=== PATIENT | female | born 1995 | race Caucasian/White ===

== ENCOUNTER → 2019-09-01 14:14 | Outpatient (BNVA) | payer MEDICAID, SELFPAY | PROVIDERS: PCP Obstetrics & Gynecology; Visit Provider Obstetrics & Gynecology | DX: Z34.90 Encounter for supervision of normal pregnancy, unspecified, unspecified trimester (principal) | CPT/HCPCS: 81003 ==

== ENCOUNTER → 2019-09-25 09:23 | Outpatient (BNVA) | payer MEDICAID, SELFPAY | PROVIDERS: PCP Obstetrics & Gynecology; Visit Provider Nurse Practitioner Women's Health | DX: Z01.89 Encounter for other specified special examinations (principal) | CPT/HCPCS: 81000; 84315 ==

== ENCOUNTER → 2019-10-15 08:06 | Outpatient (BNVA) | payer MEDICAID, SELFPAY | PROVIDERS: PCP Obstetrics & Gynecology; Visit Provider Obstetrics & Gynecology | DX: Z34.02 Encounter for supervision of normal first pregnancy, second trimester (principal) | CPT/HCPCS: 76816 ==

== ENCOUNTER → 2019-10-19 09:44 | Outpatient (BNVA) | payer MEDICAID, SELFPAY | PROVIDERS: PCP Obstetrics & Gynecology; Visit Provider Obstetrics & Gynecology | DX: Z34.02 Encounter for supervision of normal first pregnancy, second trimester (principal) | CPT/HCPCS: 82950; 84315; 85027 ==

== ENCOUNTER → 2019-10-28 08:02 | Outpatient (BNVA) | payer MEDICAID, SELFPAY | PROVIDERS: PCP Obstetrics & Gynecology; Referring Provider Obstetrics & Gynecology; Visit Provider Obstetrics & Gynecology | DX: R73.09 Other abnormal glucose (principal) | CPT/HCPCS: 82951; 82952 ==

== ENCOUNTER → 2019-11-04 13:01 | Outpatient (BNVA) | payer MEDICAID, SELFPAY | PROVIDERS: PCP Obstetrics & Gynecology; Visit Provider Obstetrics & Gynecology | DX: O24.419 Gestational diabetes mellitus in pregnancy, unspecified control (principal) | CPT/HCPCS: 81003 ==

== ENCOUNTER → 2019-11-09 09:38 | Outpatient (BNVA) | payer MEDICAID, SELFPAY | PROVIDERS: PCP Obstetrics & Gynecology; Visit Provider Obstetrics & Gynecology | DX: O99.333 Smoking (tobacco) complicating pregnancy, third trimester (principal); O99.312 Alcohol use complicating pregnancy, second trimester; O24.410 Gestational diabetes mellitus in pregnancy, diet controlled | CPT/HCPCS: 81000 ==

== ENCOUNTER → 2019-11-17 08:03 | Outpatient (BNVA) | payer MEDICAID, SELFPAY | PROVIDERS: PCP Obstetrics & Gynecology; Visit Provider Obstetrics & Gynecology | DX: O24.419 Gestational diabetes mellitus in pregnancy, unspecified control (principal); Z3A.32 32 weeks gestation of pregnancy | CPT/HCPCS: 76816; 76819; 81000 ==

== ENCOUNTER → 2019-11-23 09:30 | Outpatient (BNVA) | payer MEDICAID, SELFPAY | PROVIDERS: PCP Obstetrics & Gynecology; Visit Provider Obstetrics & Gynecology | DX: O24.419 Gestational diabetes mellitus in pregnancy, unspecified control (principal) | CPT/HCPCS: 76818; 80307; 84315 ==

== ENCOUNTER → 2019-12-09 08:59 | Outpatient (BNVA) | payer MEDICAID, SELFPAY | PROVIDERS: PCP Obstetrics & Gynecology; Visit Provider Obstetrics & Gynecology | DX: O24.410 Gestational diabetes mellitus in pregnancy, diet controlled (principal) | CPT/HCPCS: 76816; 76819; 81000 ==

== ENCOUNTER → 2019-12-14 10:18 | Outpatient (BNVA) | payer MEDICAID, SELFPAY | PROVIDERS: PCP Obstetrics & Gynecology; Visit Provider Obstetrics & Gynecology | DX: Z34.90 Encounter for supervision of normal pregnancy, unspecified, unspecified trimester (principal) | CPT/HCPCS: 76815; 76819; 81000; 87081 ==

== ENCOUNTER 2019-12-20 22:00 | Inpatient (IN) | payer MEDICAID, SELFPAY ==
[2019-12-20] VITALS (10 sets, daily range): BP systolic 0–158; BP diastolic 0–91; PULSE 97–112; TEMP 36.7; BMI 32.8
[2019-12-20] MEDS: ampicillin 2,000 MG in sodium chloride 0.9% (plus) 50 ML 100 MG IV (22:10)
[2019-12-20] MEDS: dextrose 5%-lactated ringers 1,000 ML 125 ML IV (22:10)
[2019-12-20 22:18] LABS: Basophils % 0.2 %; Eosinophils # 0.1 10^3/uL (0.0-0.8); Eosinophils % 0.4 %; Hematocrit 35.9 % (37.0-47.0); Hemoglobin 11.8 g/dL (11.5-15.3); Lymphocytes # 2.7 10^3/uL (0.8-4.8); Mean Corpuscular HGB Conc 32.9 g/dL (30.0-36.0); Mean Corpuscular Hemoglobin 28.4 pg (28.0-34.0); Mean Corpuscular Volume 86.3 fL (81-99); Mean Platelet Volume 11.5 fL (7.4-10.4); Monocytes # 0.9 10^3/uL (0.2-0.9); Monocytes % 6.3 %; Neutrophils % 73.6 %; Nucleated Red Blood Cells % 0 %; Platelet Count 329 10^3/cmm (130-400); Red Blood Count 4.16 10^6/uL (4.1-5.3); Red Cell Distribution Width 13.4 % (12.1-15.1); White Blood Count 14.9 10^3/uL (4.0-10.0)
[2019-12-20 22:24] LABS: Glucose Point of Care 93 mg/dL (70-110)
[2019-12-20] MEDS: lactated ringers 1,000 ML 999 ML IV (23:54)
[2019-12-21] VITALS (97 sets, daily range): BP systolic 0–156; BP diastolic 0–93; PULSE 56–138; RESP 16–17; TEMP 36.7–36.9; O2SAT 96–99
--- NOTE | 2019-12-21 00:50 | ANES.PREANE2 ---
Pre-Anesthetic Assessment Pre-Anesthetic Assessment: Height/Weight: Height 1.6 m Weight 83.915 kg Temp Pulse BP Pulse Ox 98.0 F 100 114/66 99 12/20/19 21:28 12/21/19 01:16 12/21/19 01:16 12/21/19 01:11 Preop Diagnosis: IUP Proposed Procedure: labor epidural Was Beta Dimas taken within 24 hours: N/A Social: Social History: Tobacco (quit) Exam: Pre-Anes Outpt Exam: alert, oriented x 3, clear to auscultation bilaterally and regular rate & rhythm Airway: Submandibular: WNL Cervical ROM: WNL MP: 2 Dentition: Chipped History/ROS: No significant history except as noted Pulmonary: Pulmonary: None reported CV/HEM: CV/HEM: None reported : : None reported Hepatic: Hepatic: None reported GI: GI: None reported Metabolic: Comments: gestational diabetes Musc/skel: Musc/skel: None reported Neuropsych: Neuropsych: None reported Anesthetic Plan: ASA status: 2 Anesthesia: Anesthesia Evaluation and Eval. for regional block Risk of > 500 ml blood loss (7ml/kg in children): No Meds/Allergies Current Medications: Current Medications Generic Name Dose Route Start Last Admin Trade Name Freq PRN Reason Stop Dose Admin Dextrose/Lactated Ringer's 1,000 mls @ 125 m ls/hr 12/20/19 22:00 12/20/19 22:10 Dextrose 5%-Lact ated Ringers IV 125 mls/hr .Q8H LETICIA Administration Ampicillin Sodium 2,000 mg/ 50 mls @ 100 mls/ hr 12/20/19 22:00 12/20/19 22:10 Sodium Chloride IV 100 mls/hr ONCE LETICIA Administration Protocol PFS Anesthesia PFSH: Social History Smoking and tobacco status: former smoker Alcohol intake: former Additional social history: - Alcohol use: Reports history of of heavy alcohol abuse --- reports drinking every other day; beer and liquor--- reports drinking average 6-7 beers as well as a pint or more of hard liquor every other day. Stopped drinking 04/2019 when she found out she was Tobacco use: Started smoking at age 18 and smoked 1/2 pack per day until quit 05/08/19 when she found out she was and stopped smoking. Drug Use: Reports history of marijuana use since age 18, smoked 1-2 times month--- last used February 2019. -Denies any other drug use in the past Work: Works full-time as a pipe production worker in [employer] Female Reproductive History: : 1 Data Anesthesia CBC & Chem 7: 12/20/19 22:00 Other Labs: Laboratory Results - last 48 hr 12/20/19 12/20/19 22:00 22:20 WBC 14.9 H RBC 4.16 Hgb 11.8 Hct 35.9 L MCV 86.3 MCH 28.4 MCHC 32.9 RDW 13.4 Plt Count 329 MPV 11.5 H Neut % (Auto) 73.6 Lymph % (Auto) 18.0 [place] % (Auto) 6.3 Eos % (Auto) 0.4 Baso % (Auto) 0.2 Neut # (Auto) 11.0 H Lymph # (Auto) 2.7 [place] # (Auto) 0.9 Eos # (Auto) 0.1 Baso # (Auto) 0.0 Nucleated RBC % (auto) 0 Nucleated RBCs # 0.0 POC Glucose 93 Cardiac Studies: No Data to Display
--- NOTE | 2019-12-21 01:30 | ANES.PROC ---
Anesthesia Procedures Procedure/Date: 12/21/19 Epidural: Time Out Performed: Yes Consents Signed: Procedure Consent Consent: requested by attending/covering physician Lumbar Level: L3-L4 Epidural position: sitting Epidural procedure: sterile prep of area, 1% lidocaine to numb the area, 18 g needle, negative for paresthesia passed, neg for paresthesia, test dose given, 1.5% xylocaine 1:200k epi (3ml), placed PCEA, no systemic response, sterile dressing applied, L.U.D. no apparent complications and 0.2% Ropiavacaine @ mls/hr (13)
[2019-12-21] MEDS: ampicillin 1,000 MG in sodium chloride 0.9% (plus) 50 ML 100 MG IV (02:02)
[2019-12-21 02:37] LABS: Glucose Point of Care 97 mg/dL (70-110)
[2019-12-21 06:26] LABS: Glucose Point of Care 101 mg/dL (70-110)
[2019-12-21] MEDS: alum-mag-hydroxide-sime 30 mL UDC PO (07:28)
[2019-12-21] MEDS: dextrose 5%-lactated ringers 1,000 ML 125 ML IV (08:50)
[2019-12-21] MEDS: oxytocin 30 UNIT/500 ML BAG IV (09:54)
[2019-12-21 10:25] LABS: Glucose Point of Care 103 mg/dL (70-110)
[2019-12-21 13:35] LABS: Glucose Point of Care 92 mg/dL (70-110)
--- NOTE | 2019-12-21 15:12 | PM.DELIVERY ---
Delivery Note: Date of delivery: December 21, 2019 Pre-delivery diagnoses: Intrauterine at 37 weeks. Gestational diabetes Post-delivery diagnoses: Term delivered Op report anesthesia: Epidural Delivering Physician: Christopher Brandon M.D. Estimated blood loss (mL): 500 Findings: Baby girl, Apgars 9/9, weight 2815 g Pre-Delivery Course: The patient is a 23yo at 37+0 weeks EGA who has been receiving care from [facility]. care complicated by gestational diabetes diet-controlled. Delivery: The patient was noted to be complete and pushing, so was placed in the dorsal lithotomy position, prepped and draped in the usual sterile fashion for a vaginal delivery. Pt. Noted to have epidural anesthesia. At 1501 the patient delivered a viable male infant at 37 weeks weighing 2815 g with scores of 9 and 9 at one and five minutes, respectively. The vertex was delivered spontaneously over Intact perineum. The patient was asked to push and the head delivered spontaneously in the EMILY position, over an intact perineum. A nuchal cord was checked and 1 noted, and delivered through around head as necessary. The anterior shoulder delivered easily and the posterior shoulder followed. The remainder of the infant was easily delivered and the oropharynx and nasopharynx was bulb suctioned. The infant was noted to have spontaneous cry and spontaneous movement of all four extremities. The cord was clamped x 2 and cut and noted to have 2 arteries and one vein. The was passed to the Mother's abdomen where Nursing personnel were in attendance. The placenta delivered intact Spontaneously and the uterus Was explored. 20 units of Pitocin was placed in the IV bag to firm the uterus. Examination of the cervix and vaginal vault did not reveal any lacerations. A vaginal pack was then placed. Examination of the perineum showed No lacerations. The vaginal pack was then removed. The patient tolerated this procedure well, and recovered in L&D with her infant and taken to the OB goldsmith. All sponge and needle counts were correct. Post-Delivery Status: Good and stable. A&P Assessment and plan (1) Gestational diabetes: Status: Acute Qualifiers: Gestational diabetes mellitus control: diet-controlled Trimester: third trimester Qualified Code(s): O24.410 - Gestational diabetes mellitus in , diet controlled (2) , delivered: Status: Acute Coding Level of Care Code Acute Executive Cyber Leader for Chg Fwd Diagnoses Gestational diabetes O24.410 Gestational diabetes mellitus control: diet-controlled Trimester: third trimester , delivered O80
[2019-12-21] MEDS: docusate sodium 100 mg Capsule PO ×2 (18:05→20:51)
[2019-12-21] MEDS: lanolin oint 7 gm 1 APPLIC TOPICAL ×2 (18:05→20:50)
[2019-12-21] MEDS: benzocaine-menthol 78 gm Canister 1 SPRAY TOPICAL ×2 (18:05→20:51)
--- NOTE | 2019-12-22 04:07 | PC.NURSE ---
Hemogram drawn by lab
[2019-12-22 04:29] LABS: Hematocrit 31.8 % (37.0-47.0); Hemoglobin 10.3 g/dL (11.5-15.3); Mean Corpuscular HGB Conc 32.4 g/dL (30.0-36.0); Mean Corpuscular Hemoglobin 28.2 pg (28.0-34.0); Mean Corpuscular Volume 87.1 fL (81-99); Mean Platelet Volume 11.5 fL (7.4-10.4); Platelet Count 251 10^3/cmm (130-400); Red Blood Count 3.65 10^6/uL (4.1-5.3); Red Cell Distribution Width 13.5 % (12.1-15.1); White Blood Count 17.3 10^3/uL (4.0-10.0)
[2019-12-22 05:20] VITALS: BP 104/66; PULSE 106; RESP 16; TEMP 36.7; O2SAT 97
[2019-12-22] MEDS: prenatal vitamin Capsule 1 CAP PO (10:23)
[2019-12-22] MEDS: docusate sodium 100 mg Capsule PO (10:23)
[2019-12-22] MEDS: ferrous sulfate EC 325 mg Tablet PO (10:23)
[2019-12-22 10:40] VITALS: BP 121/76; PULSE 103; RESP 17; TEMP 36.4; O2SAT 97
--- NOTE | 2019-12-22 13:04 | ANE.PACU2 ---
 Inpatient post-anesthesia follow up: Airway intact: Yes Vital signs: Temperature 97.6 F Pulse Rate 103 Respiratory Rate 17 Blood Pressure 121/76 Pulse Oximetry 97 Oxygen Delivery Me thod Room Air Oxygen Flow Rate Fraction of Inspir ed Oxygen Hydration adequate: Yes Mental status: Baseline Additional Comments: no le wakness, headaches, or urinary issues
--- NOTE | 2019-12-22 19:27 | PM.OBGYDC ---
Discharge Providers INTERIOR DECORATOR PAPERHANGING Date of Admission: 12/20/19 22:00 Date of Discharge: 01/13/20 Attending Provider at Admission: Christopher Brandon MD Attending Provider at Discharge: Christopher Brandon MD Primary Care Provider: An Hawkins MD Diagnoses at Discharge Discharge Diagnosis (1) Gestational diabetes: Status: Acute Qualifiers: Gestational diabetes mellitus control: diet-controlled Trimester: third trimester Qualified Code(s): O24.410 - Gestational diabetes mellitus in , diet controlled (2) , delivered: Status: Acute Problem details: Status post spontaneous vaginal delivery day 1 Reason for Visit Reason for Visit: Reason For Visit: 36 weeks 6 days/bleeding/contractions Hospital Course Hospital Course: She came to labor and delivery with a chief complaint of contractions and bloody show. Upon evaluation Labor and Delivery she was found to be in early active labor. She was admitted to labor and delivery and she Progressed to have a spontaneous vaginal delivery without complications. She delivered A male at 37 weeks, Apgars 9/9, weight 2815 g. As part of observation was uneventful. She is afebrile and hemodynamically stable. Ambulating without difficulty. Tolerating diet well. Information Peripartum Data: Infant Delivery Method: Vaginal Physical Exam Narrative: EXAM NARRATIVE: GA; alert and oriented x 3 HEENT: normal Breasts: engorged Nipples - skin intact Lungs; clear to auscultation Heart: regular rhythm, no murmurs. Abd: Appropriately tender. BS+. Uterine fundus below umbilicus. No Fundal Tenderness. Perineum: normal lochia. Extremities: no edema, no cyanosis, no tenderness. Discharge Data Data Completed and Pending: Labs from last 24 hours 12/22/19 04:04 WBC 17.3 H RBC 3.65 L Hgb 10.3 L Hct 31.8 L MCV 87.1 MCH 28.2 MCHC 32.4 RDW 13.5 Plt Count 251 MPV 11.5 H Vitals: Last Vital Signs Temp 97.6 F 12/22/19 10:40 Pulse 103 H 12/22/19 10:40 Resp 17 12/22/19 10:40 BP 121/76 12/22/19 10:40 Pulse Ox 97 12/22/19 10:40 Discharge Plan Discharge Patient Disposition: Home, Self-Care Condition: Stable Prescriptions: New acetaminophen 325 mg Tablet 650 mg PO Q6H PRN (Reason: Mild pain or temp > 100.4) Qty: 60 RF: 0 ibuprofen 800 mg Tablet 800 mg PO TID Qty: 60 RF: 0 docusate sodium 100 mg Capsule 100 mg PO BID Qty: 60 RF: 0 ferrous sulfate 325 mg (65 mg iron) Tablet,Delayed Release (Dr/Ec) 325 mg PO DAILY Qty: 60 RF: 0 Continued (DME) blood-glucose meter [Accu-Chek Guide Glucose Meter] Misc See Rx Instructions .ROUTE .MEDSUPPLY Qty: 1 RF: 0 (DME) lancets [Accu-Chek Softclix Lancets] Misc See Rx Instructions .ROUTE .MEDSUPPLY Qty: 50 RF: 4 (DME) Accu-Chek SmartView Test Strip Strip See Rx Instructions .ROUTE .MEDSUPPLY Qty: 50 RF: 4 Vitamin 27 mg iron- 0.8 mg Tablet 1 tab PO DAILY RF: 0 Discharge Orders: Discharge Order (Routine); Ordered 12/22/19 Ordered By: Christopher Brandon Discharge Diet: Regular Discharge Activity: Increase activity as tolerated Patient Instructions: Vitamins (By mouth), OB Discharge Report, OB Food/Drug Interaction Guide, OB Proud Parent Packet, OB Vaginal Deliveries - [facility] Activity Restrictions/Additional Instructions: Pelvic rest for 6 weeks (no sex, no tampons, no vaginal douches). Return to the emergency room if any fever, increased bleeding or pain. Discharge Date/Time: 12/22/19 20:40 Discharge Attestations INTERIOR DECORATOR PAPERHANGING Time Spent in Discharge Care*: greater than 30 min Specific Discharge Activities: Specific discharge activities: educating patient and educating and/or supporting family/caregiver Coding Level of Care Code Acute Advertising Account Executive for Chg Fwd Diagnoses Gestational diabetes O24.410 Gestational diabetes mellitus control: diet-controlled Trimester: third trimester , delivered O80
[2019-12-22 19:50] VITALS: BP 132/85; PULSE 82; RESP 18; TEMP 36.8
== END 2019-12-22 20:40 | disposition home or self-care (01) | DRG 807 ==
LOC: OBGYN 12-21 07:42 → OPOB 12-21 07:42
PROVIDERS: Admitting Provider Obstetrics & Gynecology; PCP Obstetrics & Gynecology; Visit Provider Obstetrics & Gynecology
DX: O24.420 Gestational diabetes mellitus in childbirth, diet controlled (principal); Z37.0 Single live birth; Z3A.37 37 weeks gestation of pregnancy; O99.824 Streptococcus B carrier state complicating childbirth; O69.81X0 Labor and delivery complicated by cord around neck, without compression, not applicable or unspecified
CPT/HCPCS: 12345; 36415; 36416; 51702; 59025; 59409; 82962; 85025; 85027; 99211; J0290; J2795

== ENCOUNTER → 2020-02-02 07:58 | Outpatient (BNVA) | payer MEDICAID, SELFPAY | PROVIDERS: PCP Obstetrics & Gynecology; Visit Provider Obstetrics & Gynecology | DX: O24.410 Gestational diabetes mellitus in pregnancy, diet controlled (principal); Z39.2 Encounter for routine postpartum follow-up; R87.610 Atypical squamous cells of undetermined significance on cytologic smear of cervix (ASC-US); R87.810 Cervical high risk human papillomavirus (HPV) DNA test positive; Z30.9 Encounter for contraceptive management, unspecified | CPT/HCPCS: 81025; 82947 ==

== ENCOUNTER 2021-04-01 11:26 | Emergency (ER) | payer BC, MEDICAID, SELFPAY ==
[2021-04-01 12:08] VITALS: BP 114/81; PULSE 98; RESP 16; TEMP 36.8; O2SAT 99; BMI 30.9
--- NOTE | 2021-04-01 12:42 | W.ED.NAVMDI ---
HPI - Nausea/Vomiting/Diarrhea General: Chief complaint: Nausea/Vomiting/Diarrhea Stated complaint: Threw up Blood this Morning Time Seen by Provider: 04/01/21 12:27 Source: patient and family Mode of arrival: ambulatory Limitations: no limitations History of Present Illness: HPI Narrative: Patient is a nice 25-year-old female who presents to ED today along with her significant other for complaints of an episode of bloody emesis that occurred this morning. Patient tells me she did drink a heavy amount of alcohol last night. She does not remember any episodes of vomiting during the evening or throughout the night. She has not had any abdominal pain. She has not had any further episodes of emesis. She quantifies the amount of blood as 6 large drops and describes as bright red. She has no history of GI bleeds. She has never had an episode of bloody emesis previously. She denies black or tarry stools. Patient does report alcohol use approximately 2-3 times a week and describes as heavy when she does consume. MD elicited complaint: vomiting Pertinent past history: alcohol abuse Associated nausea: Yes Associated abdominal pain: No Location of pain: None Pain scale (0-10): 0 Context: alcohol abuse Associated symtoms: Reports no associated symptoms and nausea; Denies chest pain, dysuria, fatigue, headache(s) or malaise Review of Systems Const: Denies: fever(s), chills, body aches, fatigue or malaise ENMT: Denies: throat pain or odynophagia Card: Denies: chest pain Resp: Denies: dyspnea GI: Reports: nausea, vomiting and hematemesis (x 1); Denies: abdominal pain, coffee ground emesis, dysphagia, heartburn, early satiety, diarrhea, constipation, GI cramping, belching, pain on defecation, hematochezia or melena : Denies: flank pain or dysuria Musc: Denies: neck pain Skin/Breast: Denies: rash Neuro: Denies: headache(s) PFS ED PFSH: Medical History (Updated 04/01/21 @ 12:42 by GEETHA Ricks) No pertinent past medical history Denies diabetes, asthma, hypertension, seizures, DVT/PE. -Did have gestational diabetes with her in 2019-diet controlled-needs screening for diabetes every 1 to 3 years. Surgical History History of esophageal surgery Patient reports history of esophageal surgery as an infant. States surgery was performed right after and she does not know the details but has been told her esophagus came to a stop . She has a scar on her right back from where the surgery was performed. She has not had any difficulty or restrictions after having the surgery. Family History Grandfather Diabetes Maternal Hypertension Maternal Denies family history of CAD (coronary artery disease) Hyperlipidemia Cancer Stroke Social History (Updated 04/28/20 @ 06:30 by An Hawkins MD) Smoking and tobacco status: former smoker Alcohol intake: former Additional social history: -- Physical Exam Const: COMMON NORMALS: no acute distress, average body habitus, patient oriented x3, no limitations and alert GENERAL APPEARANCE: cooperative NUTRITIONAL APPEARANCE: overweight ORIENTATION/CONSCIOUSNESS: Yes awake, Yes oriented to person, Yes oriented to place and Yes oriented to time HENMT: COMMON NORMALS: normocephalic and atraumatic HEAD & SCALP: normocephalic and atraumatic GI: COMMON NORMALS: Normal to inspection, nondistended, normoactive bowel sounds present, Soft to palpation, non-tender, No hepatosplenomegaly present and no masses PALPATION: Yes Soft to palpation and Yes No hepatosplenomegaly present Extremity: COMMON NORMALS: normal to inspection Neuro: COMMON NORMALS: patient oriented x3 SENSORIUM/ORIENTATION: Yes alert, Yes oriented to person, Yes oriented to place and Yes oriented to time Skin: COMMON NORMALS: no rashes or lesions noted GENERAL SKIN EXAM: no rashes or lesions noted Course Vital Signs: Vital signs: Vital Signs Temperature 98.3 F 04/01/21 12:08 Pulse Rate 98 04/01/21 12:08 Respiratory Rate 16 04/01/21 12:08 Blood Pressure 114/81 04/01/21 12:08 Pulse Oximetry 99 04/01/21 12:08 MDM - Nausea/Vomiting/Diarrhea MDM Narrative: Medical decision making narrative: Patient has absolutely no abdominal tenderness currently. Vital signs are completely stable. She is here after one episode of emesis that contained 6 bright red drops of blood. Reports heavy alcohol use yesterday evening. At this time I do not see any that emergent imaging is necessary. Labs are not going to change my management at this time. Recommend decrease in alcohol use-discussed that 2-3 drinks per evening is considered heavy alcohol use for females and risks associated with that. Recommend DC any anti-inflammatory use and will place patient on carafate/protonix and recommend she follow up with PCP. Strict return to ED precautions given. Discharge Plan Discharge Patient Disposition: Home Clinical Impression: Alcoholic gastritis Qualifiers: Chronicity: acute Gastritis bleeding: with bleeding Qualified Code(s): K29.21 - Alcoholic gastritis with bleeding Condition: Stable Prescriptions: New Protonix 40 mg tablet,delayed release (DR/EC) 40 mg PO DAILY 14 Days Qty: 14 RF: 0 Carafate 1 gram tablet 1 g PO TID 14 Days Qty: 42 RF: 0 Discontinued diclofenac potassium PO BID RF: 0 No Action ibuprofen 800 mg tablet 800 mg PO TID PRNRF: 0 norethindrone-e.estradiol-iron [Microgestin FE 09/14 (28)] 1 mg-20 mcg (21)/75 mg (7) tablet 1 tab PO DAILY RF: 0 Vitamin 27 mg iron- 0.8 mg Tablet 1 tab PO DAILY RF: 0 Discharge Orders: Discharge ED (Routine); Ordered 04/01/21 Ordered By: Angelica Palacio Referrals: Jo Wilkins PA [Primary Care Provider] - Patient Instructions: Gastritis (ED), Diet for Ulcers and Gastritis (ED), Abuse of Alcohol (ED) Activity Restrictions/Additional Instructions: As we discussed please take the medications prescribed. You need to limit your alcohol intake in general but especially while taking these medications. You need to follow-up with your primary care provider for continued sporadic episodes of blood in your vomit. You need to return to the ED immediately for several episodes of bloody vomit, large amounts of blood, or severe abdominal pain. Coding Level of Care Code ED Talent Acquisition Assistant for Trisha Denney
== END 2021-04-01 13:15 | disposition home or self-care (01) ==
PROVIDERS: Emergency Provider Physician Assistant; PCP Physician Assistant
DX: K29.21 Alcoholic gastritis with bleeding (principal); Z87.891 Personal history of nicotine dependence
CPT/HCPCS: 99283

== ENCOUNTER 2021-10-09 07:04 | Inpatient (IN) | payer BC, SELFPAY ==
[2021-10-09] VITALS (12 sets, daily range): BP systolic 120–151; BP diastolic 76–99; PULSE 85–109; RESP 13–18; TEMP 36.3–37.3; O2SAT 93–99; BMI 30.9; BMI 32.8
--- NOTE | 2021-10-09 07:27 | ED_ITS ---
HPI - Abdominal Pain General: Chief Complaint: Abdominal Pain Stated Complaint: Abd Pain lower middle to lower left Time Seen by Provider: 10/09/21 07:05 Source: patient Mode of arrival: ambulatory Limitations: no limitations History of Present Illness: 25-year-old female presents emergency room complai cliff of left epigastric and left upper quadrant pain for states she hours. 2 days ago she had an episode of the patient's drinking. Symptoms began sometime after that. She reports she has had the symptoms in the past as well. Has not had any previous abdominal surgeries she does not believe she is she denies any association with dysuria urgency frequency denies any hematemesis coffee-ground emesis vomiting or diarrhea has had a lot of nausea. MD elicited complaint: abdominal pain Pertinent past history: none Onset (ago): hour(s) (18) Pain Consistency: constant Location: Epigastric and LLQ Severity: moderate Quality: cramping Radiation: back Exacerbating factors: nothing Relieving factors: nothing Associated Symptoms: Reports GI cramping, nausea and poor appetite; Denies anorexia, belching, bloating, change in bowel habits, change in stool character, chills, coffee ground emesis, constipation, diarrhea, dyspepsia, dysuria, excessive flatus, fever(s), heartburn, hematochezia, hematuria, hematemesis, fecal incontinence, loose stools, melena, syncope and vomiting Review of Systems Const: Denies: fever(s) or chills Card: Denies: syncope GI: Reports: nausea and GI cramping; Denies: vomiting, hematemesis, coffee ground emesis, heartburn, diarrhea, constipation, bloating, belching, excessive flatus, fecal incontinence, change in bowel habits, change in stool character, hematochezia or melena : Denies: dysuria or hematuria PFS ED PFSH: Medical History (Updated 10/09/21 @ 10:36 by Danna Major MD) History of gestational diabetes Surgical History History of esophageal surgery Patient reports history of esophageal surgery as an . States surgery was performed right after and she does not know the details but has been told her esophagus came to a stop . She has a scar on her right back from where the surgery was performed. She has not had any difficulty or restrictions after having the surgery. Family History (Updated 10/09/21 @ 11:37 by Danna Major MD) Grandfather Diabetes Maternal Hypertension Maternal Denies family history of CAD (coronary artery disease) Hyperlipidemia Pancreatitis Cancer Stroke Social History Smoking and tobacco status: former smoker Alcohol intake: former Additional social history: -- Physical Exam Const: COMMON NORMALS: no acute distress GENERAL APPEARANCE: cooperative and comfortable ORIENTATION/CONSCIOUSNESS: Yes awake, Yes oriented to person, Yes oriented to place and Yes oriented to time HENMT: COMMON NORMALS: normocephalic, atraumatic and hearing grossly normal bilaterally HEAD & SCALP: normocephalic and atraumatic Neck/C-Spine: COMMON NORMALS: no JVD Resp: COMMON NORMALS: normal respiratory effort, No retractions, No use of accessory muscles and clear to auscultation bilaterally AUSCULTATION: clear to auscultation bilaterally Cardio: COMMON NORMALS: no JVD, regular rate, regular rhythm and No murmurs present (Cardio) RATE: regular rate RHYTHM: regular rhythm GI: COMMON NORMALS: No hepatosplenomegaly present AUSCULTATION: Yes normoactive bowel sounds PALPATION: Yes Tenderness to palpation present (GI) Details: LUQ, No Guarding due to palpation present (GI) and Yes No hepatosplenomegaly present Extremity: COMMON NORMALS: normal to inspection, capillary refill normal, no clubbing, cyanosis or edema, no calf tenderness and no pedal edema Neuro: SENSORIUM/ORIENTATION: Yes oriented to person, Yes oriented to place and Yes oriented to time Skin: COMMON NORMALS: no rashes or lesions noted GENERAL SKIN EXAM: no rashes or lesions noted Course Vital Signs: Vital signs: Vital Signs Temperature 97.3 F L 10/09/21 07:15 Pulse Rate 109 H 10/09/21 11:09 Respiratory Rate 16 10/09/21 11:09 Blood Pressure 144/88 10/09/21 11:09 Pulse Oximetry 97 10/09/21 11:09 MDM - Abdominal Pain Medical Decision Making Acute pancreatitis. Is a question of dilated common bile duct on this CT however ultrasound showed normal common bile duct there is some cholelithiasis but no sign of ductal stone. Discussed with hospitalist will admit for pancreatitis pain control fluids. Patient aware. Medical Records I reviewed the patient's medical records. Lab Data I reviewed the patient's lab results. : 10/09/21 07:37 10/09/21 07:37 Labs/Radiology: Radiology Impressions Abdomen/Pelvis CT 10/09/21 07:27 IMPRESSION: 1. Diffuse pancreatic edema with diffuse surrounding peripancreatic fluid compatible with pancreatitis. Recommend correlation with pancreatic enzymes. 2. Portal vein and splenic vein are patent. 3. Gallbladder wall enhancement most likely reactive. Mild prominence of the common bile duct measuring 6 mm. This could be further evaluated with MRCP. 4. Moderate fluid and edema extending into the pericolic gutters. Small amount of free fluid in the pelvis. 5. No hydronephrosis in either kidney. 6. Normal appendix in the RIGHT lower quadrant. Notified Don Ag DO at 10/09/2021 9:46 AM. Gallbladder Ultrasound 10/09/21 09:46 IMPRESSION: 1. Edematous pancreas with peripancreatic fluid compatible with pancreatitis. 2. Cholelithiasis with mild gallbladder wall thickening. Common bile duct within normal limits. 3. Normal liver and RIGHT kidney. Laboratory Results WBC 18.9 10^3/uL (4.0-10.0) H 10/09/21 07:37 RBC 5.36 10^6/uL (4.1-5.3) H 10/09/21 07:37 Hgb 15.1 g/dL (11.5-15.3) 10/09/21 07:37 Hct 46.1 % (37.0-47.0) 10/09/21 07:37 MCV 86.0 fl (81-99) 10/09/21 07:37 MCH 28.2 pg (28.0-34.0) 10/09/21 07:37 MCHC 32.8 g/dL (30.0-36.0) 10/09/21 07:37 RDW 13.4 % (12.1-15.1) 10/09/21 07:37 Plt Count 384 10^3/cmm (130-400) 10/09/21 07:37 MPV 10.6 fL (7.4-10.4) H 10/09/21 07:37 Neut % (Auto) 91.0 % 10/09/21 07:37 Lymph % (Auto) 3.8 % 10/09/21 07:37 [place] % (Auto) 4.5 % 10/09/21 07:37 Eos % (Auto) 0.0 % 10/09/21 07:37 Baso % (Auto) 0.1 % 10/09/21 07:37 Neut # (Auto) 17.18 10^3/uL (1.8-7.7) H 10/09/21 07:37 Lymph # (Auto) 0.7 10^3/uL (0.8-4.8) L 10/09/21 07:37 [place] # (Auto) 0.8 10^3/uL (0.2-0.9) 10/09/21 07:37 Eos # (Auto) 0.0 10^3/uL (0.0-0.8) 10/09/21 07:37 Baso # (Auto) 0.0 10^3/uL (0.0-0.1) 10/09/21 07:37 Nucleated RBC % (auto) 0 % 10/09/21 07:37 Nucleated RBCs # 0.0 /100WBC 10/09/21 07:37 Sodium 133 mmol/L (136-145) L 10/09/21 07:37 Potassium 4.1 mmol/L (3.5-5.1) 10/09/21 07:37 Chloride 98 mmol/L (98-107) 10/09/21 07:37 Carbon Dioxide 19 mmol/L (22-29) L 10/09/21 07:37 Anion Gap 20.1 (5-19) H 10/09/21 07:37 BUN 7 mg/dL (6-20) 10/09/21 07:37 Creatinine 0.5 mg/dL (0.5-0.9) 10/09/21 07:37 GFR Calculation 150.3 mL/min (90-130) H 10/09/21 07:37 Glucose 148 mg/dL (65-115) H 10/09/21 07:37 Calculated Osmolality 277 mOsm/kg (285-295) L 10/09/21 07:37 Calcium 9.8 mg/dL (8.5-10.5) 10/09/21 07:37 Total Bilirubin 1.0 mg/dL (0.15-1.2) 10/09/21 07:37 AST 299 U/L (0-32) H 10/09/21 07:37 ALT 350 U/L (0-33) H 10/09/21 07:37 Alkaline Phosphatase 129 IU/L (35-105) H 10/09/21 07:37 Total Protein 8.2 g/dL (6.6-8.7) 10/09/21 07:37 Albumin 4.3 g/dL (3.5-5.2) 10/09/21 07:37 Globulin 3.9 g/dL (1.3-4.6) 10/09/21 07:37 Lipase 2759 U/L (13-60) H 10/09/21 07:37 HCG, Qual Negative (Negative) 10/09/21 08:01 Urine Color Dark yellow (Yellow) 10/09/21 07:37 Urine Appearance Hazy (CLEAR) A 10/09/21 07:37 Urine pH 5 (5-7) 10/09/21 07:37 Ur Specific [place] 1.025 (1.005-1.030) 10/09/21 07:37 Urine Protein 1+ (Negative) H 10/09/21 07:37 Urine Glucose (UA) Norm (Normal) 10/09/21 07:37 Urine Ketones 2+ (Negative) H 10/09/21 07:37 Urine Blood Neg (Negative) 10/09/21 07:37 Urine Nitrate Negative (Negative) 10/09/21 07:37 Urine Bilirubin 1+ (Negative) H 10/09/21 07:37 Urine Urobilinogen 4 mg/dL (Negative) H 10/09/21 07:37 Ur Leukocyte Esterase Trace (Negative) H 10/09/21 07:37 Urine RBC None /hpf (0-2) 10/09/21 07:37 Urine WBC 0-4 /hpf (0-5) H 10/09/21 07:37 Ur Squamous Epith Cells 5-10 /hpf (0-5) H 10/09/21 07:37 Amorphous Sediment 3+ /hpf 10/09/21 07:37 Urine Bacteria 1+ /hpf (NONE) H 10/09/21 07:37 Discharge Plan Discharge Admit Provider: Danna Major Condition: Stable Coding Level of Care Code ED Rn Surgery Icu for Chg Fwd Exam Comprehensive
--- NOTE | 2021-10-09 07:27 | CT_ITS ---
WS: [id number] CT ABDOMEN PELVIS TECHNIQUE: Contrast-enhanced CT of the abdomen and pelvis with coronal and sagittal reformatted image s. CLINICAL INFORMATION: abd pain COMPARISON: None. DLP: 1767.[address] scans at [facility] use at least one of these dose optimization techniques: automated e xposure control; mA and/or kV adjustment per patient size (includes targeted exams where dose is matc hed to clinical indication); or iterative reconstruction. FINDINGS: Diffuse fatty infiltration liver. Normal portal vein and splenic vein. Normal GE junction. Slight ate lectasis in the lung bases. Diffuse edema involving the pancreas with peripancreatic fluid and inflam matory stranding suspicious for pancreatitis. Correlation with pancreatic enzymes. Gallbladder enhanc ement likely reactive. Prominence of the common bile duct measuring 6 mm. This can be further evaluat ed with MRCP. No pancreatic ductal dilatation. Normal spleen. Adrenal glands are normal. No hydroneph rosis in either kidney. Fluid in the pericolic gutters bilaterally. Mesenteric edema in the midabdomen. Small amount of free fluid in the pelvis. Normal appendix. Fat-containing umbilical hernia. CT/CT abdomen pelvis w con* [id number] IMPRESSION: 1. Diffuse pancreatic edema with diffuse surrounding peripancreatic fluid comp atible with pancreatitis. Recommend correlation with pancreatic enzymes. 2. Portal vein and splenic vein are patent. 3. Gallbladder wall enhancement most likely reactive. Mild prominence of the c ommon bile duct measuring 6 mm. This could be further evaluated with MRCP. 4. Moderate fluid and edema extending into the pericolic gutters. Small amount of free fluid in the pelvis. 5. No hydronephrosis in either kidney. 6. Normal appendix in the RIGHT lower quadrant. Notified Don Ag DO at 10/09/2021 9:46 AM.
[2021-10-09 07:44] LABS: Basophils % 0.1 %; Hematocrit 46.1 % (37.0-47.0); Hemoglobin 15.1 g/dL (11.5-15.3); Lymphocytes # 0.7 10^3/uL (0.8-4.8); Lymphocytes % 3.8 %; Mean Corpuscular HGB Conc 32.8 g/dL (30.0-36.0); Mean Corpuscular Hemoglobin 28.2 pg (28.0-34.0); Mean Platelet Volume 10.6 fL (7.4-10.4); Monocytes # 0.8 10^3/uL (0.2-0.9); Monocytes % 4.5 %; Neutrophils # 17.18 10^3/uL (1.8-7.7); Nucleated Red Blood Cells % 0 %; Platelet Count 384 10^3/cmm (130-400); Red Blood Count 5.36 10^6/uL (4.1-5.3); Red Cell Distribution Width 13.4 % (12.1-15.1); White Blood Count 18.9 10^3/uL (4.0-10.0)
[2021-10-09] MEDS: ondansetron 2 mg/ML SDV 2 mL 4 MG IVP ×3 (07:48→22:43)
[2021-10-09] MEDS: sodium chloride 0.9% 1,000 ML 999 ML IV ×3 (07:48→09:59)
[2021-10-09] MEDS: morphine 4 mg/mL SDV 1 mL IVP ×4 (07:48→22:43)
[2021-10-09 08:08] LABS: Alanine Aminotransferase 350 U/L (0-33); Albumin Level 4.3 g/dL (3.5-5.2); Alkaline Phosphatase 129 IU/L (35-105); Aspartate Amino Transferase 299 U/L (0-32); Blood Urea Nitrogen 7 mg/dL (6-20); Calcium 9.8 mg/dL (8.5-10.5); Carbon Dioxide 19 mmol/L (22-29); Chloride 98 mmol/L (98-107); Globulin 3.9 g/dL (1.3-4.6); Glomerular Filtration Rate 150.3 mL/min (90-130); Glucose 148 mg/dL (65-115); Osmolality Calculated 277 mOsm/kg (285-295); Sodium 133 mmol/L (136-145); Total Protein 8.2 g/dL (6.6-8.7)
[2021-10-09 08:11] LABS: Glucose Urine UA Norm (Normal); Protein Urine 1+ (Negative); Specific Gravity, Urine 1.025 (1.005-1.030); Urine Appearance Hazy (CLEAR); Urine Color Dark Yellow (Yellow); pH Urine 5 (5-7)
[2021-10-09 08:12] LABS: Add Urine Culture? No; Add Urine Microscopic? YES; Amorphous Sediment Urine 3+ /hpf; Bacteria Urine 1+ /hpf; Bilirubin Urine 1+ (Negative); Blood Urine Neg (Negative); Ketones Urine 2+ (Negative); Leukocyte Esterase Urine Trace (Negative); Nitrate Urine Negative (Negative); Urobilinogen Urine 4 mg/dL (Negative); WBC Urine 0-4 /hpf (0-5)
[2021-10-09 08:33] LABS: Anion Gap 20.1 (5-19); Lipase 2759 U/L (13-60); Potassium 4.1 mmol/L (3.5-5.1)
[2021-10-09 08:52] LABS: HCG, Serum Qual Negative (Negative)
--- NOTE | 2021-10-09 09:46 | US_ITS ---
WS: [id number] ULTRASOUND ABDOMEN LIMITED CLINICAL INFORMATION: pancreatitis, sl enlarged CBD COMPARISON: CT October 09, 2021 FINDINGS: Liver Size: Normal. Craniocaudal length: 13.7 cm. Echogenicity: Normal. Surface nodularity: None. Mass (size and location): None. Bile ducts Intrahepatic ducts: Normal. Common bile duct diameter: 0.6 cm. Gallbladder Cholelithiasis Gallstones: Present Gallbladder sludge: None. Gallbladder wall thickening: Mild measuring 3.9 mm Pericholecystic fluid: None. Sonographic Dill sign: Absent. Pancreas Normal as visualized. Right kidney: Tiny RIGHT renal cyst measuring 7.3 x 6.5 mm Hydronephrosis: None. Size: 10.8 cm x 4.7 cm x 4.6 cm. Abdominal aorta and IVC Visualized portions are normal. Ascites: None. US/US gall bladder [id number] IMPRESSION: 1. Edematous pancreas with peripancreatic fluid compatible with pancreatitis. 2. Cholelithiasis with mild gallbladder wall thickening. Common bile duct with in normal limits. 3. Normal liver and RIGHT kidney.
[2021-10-09] MEDS: pantoprazole 40 mg SDV 80 MG IVP (09:58)
--- NOTE | 2021-10-09 10:30 | P.HP_ITS ---
Providers/Chief Complaint Admitting Physician: Danna Major MD Primary Care Provider: Jo Wilkins Chief Complaint: Abd Pain lower middle to lower left History of Present Illness Augie Aviles is a 25 year old female. Pain is located in the epigastric region radiating through to her back. At its worst is a 7 or an 8 out of 10. She describes it as sharp. When the pain is at its worst, she has some nausea. She got into a shower 1 time and it helped a little bit. She describes having episodes of similar pain that comes and goes off and on for about a year. Most of the time the pain goes away within a few hours and only comes and goes over the course of a couple of days and then is gone. This time however the pain has persisted eventually prompting her to come in today. On arrival, she was afebrile. Blood pressure 140s over 90s. Heart rate in the 90s. Urine test was negative. Lipase was found to be elevated at greater than [address] imaging showed significant inflammation in the peripancreatic area. Common bile duct was noted to be at upper limits of normal on CT imaging but ultrasound showed the common bile duct was within normal limits. Some mild gallbladder wall thickening and cholelithiasis was noted. Currently bilirubin was 1.0. In talking with Mrs. Aviles, she does drink alcohol regularly. She says that she has ever since her child was born in mid 2019. Her and her partner drink 1/5 between the 2 of them every 2 days or so. She has never had significant alcohol withdrawal symptoms and primarily binge drinks rather than daily. No prior history of pancreatitis. She intermittently will take NSAIDs but nothing regular. No other home medications. She received pain medications and IV fluids in the emergency room and is being admitted for further care. Pain is currently down to around a 4 out of 10 after several doses of IV pain medication in the emergency room. Review of Systems Const: Reports: change in appetite and fatigue; Denies: fever(s) or chills ENMT: Denies: throat pain or nasal congestion Card: Reports: palpitations (with severe pain); Denies: chest pain Resp: Denies: dyspnea, productive cough or non-productive cough GI: Reports: abdominal pain, nausea and vomiting (once with severe pain); Denies: diarrhea, constipation, hematochezia or melena : Denies: difficulty voiding or hematuria Musc: Reports: back pain; Denies: extremity pain Skin/Breast: Denies: rash, pruritus or sores Neuro: Denies: numbness in extremities, weakness in extremities or difficulty walking Yo/Lymph: Denies: easy bruising or easy bleeding Medications/Allergies Home Medications Medication Instructions Recorded Confirmed Last Taken Type naproxen sodium 220 mg tablet 220 mg PO BID PRN 10/09/21 10/09/21 10/08/21 History (Aleve) Allergies Allergy/AdvReac Type Severity Reaction Status Date / Time Sulfa (Sulfonamide AdvReac Mild possible Verified 10/09/21 07:15 Antibiotics) reaction as a child PFSH Acute PFSH: Medical History (Updated 10/09/21 @ 11:56 by Danna Major MD) 1 para 1 History of gestational diabetes Surgical History History of esophageal surgery Patient reports history of esophageal surgery as an infant. States surgery was performed right after and she does not know the details but has been told her esophagus came to a stop . She has a scar on her right back from where the surgery was performed. She has not had any difficulty or restrictions after having the surgery. Family History (Updated 10/09/21 @ 11:37 by Danna Major MD) Grandfather Diabetes Maternal Hypertension Maternal Denies family history of CAD (coronary artery disease) Hyperlipidemia Pancreatitis Cancer Stroke Social History (Updated 10/09/21 @ 11:41 by Danna Major MD) Smoking and tobacco status: current some day smoker cigarettes [ Other cigarette details: when she drinks] Alcohol intake: current Alcohol intake frequency: few times a week Alcohol type: hard liquor Alcohol use comment: shares a 5th with partner every 2-3 days Substance/Drug Use: never Lives independently: Yes Household members: significant other and children Additional social history: -- Vitals/I&O/Wt Last Vital Signs Temp 97.3 F L 10/09/21 07:15 Pulse 96 10/09/21 08:46 Resp 16 10/09/21 09:13 BP 134/90 10/09/21 08:46 Pulse Ox 96 10/09/21 09:13 10/08/21 10/09/21 10/09/21 22:59 06:59 14:59 Intake Total 1000 / 1000 Balance 1000 / 1000 Weight last 48 hrs Weight 79.379 kg Physical Exam Narrative: Constitutional: Awake and alert, mildly ill-appearing but no acute respiratory distress HEENT: Normocephalic, atraumatic, pupils are equal reactive, nasopharynx is clear, oropharynx with dry mucous membranes but otherwise clear Neck: Supple Respiratory: Clear to auscultation bilaterally, no rales rhonchi or wheezes Cardiovascular: Regular rate and rhythm without any murmurs gallops or rubs Abdomen: Soft, tenderness throughout, most prominent in right lower quadrant followed by epigastric and left upper quadrant then left lower quadrant, voluntary guarding, no rebound, positive bowel sounds Extremities: No pitting edema Skin: Dry, scattered tattoos, no rashes or sores noted Neuro: Speech clear, face symmetric, moves all extremities Psych: Normal affect, cooperative Data : 10/09/21 07:37 10/09/21 07:37 Other Labs: Radiology Impressions Abdomen/Pelvis CT 10/09/21 07:27 IMPRESSION: 1. Diffuse pancreatic edema with diffuse surrounding peripancreatic fluid compatible with pancreatitis. Recommend correlation with pancreatic enzymes. 2. Portal vein and splenic vein are patent. 3. Gallbladder wall enhancement most likely reactive. Mild prominence of the common bile duct measuring 6 mm. This could be further evaluated with MRCP. 4. Moderate fluid and edema extending into the pericolic gutters. Small amount of free fluid in the pelvis. 5. No hydronephrosis in either kidney. 6. Normal appendix in the RIGHT lower quadrant. Laboratory Results WBC 18.9 10^3/uL (4.0-10.0) H 10/09/21 07:37 RBC 5.36 10^6/uL (4.1-5.3) H 10/09/21 07:37 Hgb 15.1 g/dL (11.5-15.3) 10/09/21 07:37 Hct 46.1 % (37.0-47.0) 10/09/21 07:37 MCV 86.0 fl (81-99) 10/09/21 07:37 MCH 28.2 pg (28.0-34.0) 10/09/21 07:37 MCHC 32.8 g/dL (30.0-36.0) 10/09/21 07:37 RDW 13.4 % (12.1-15.1) 10/09/21 07:37 Plt Count 384 10^3/cmm (130-400) 10/09/21 07:37 MPV 10.6 fL (7.4-10.4) H 10/09/21 07:37 Neut % (Auto) 91.0 % 10/09/21 07:37 Lymph % (Auto) 3.8 % 10/09/21 07:37 [place] % (Auto) 4.5 % 10/09/21 07:37 Eos % (Auto) 0.0 % 10/09/21 07:37 Baso % (Auto) 0.1 % 10/09/21 07:37 Neut # (Auto) 17.18 10^3/uL (1.8-7.7) H 10/09/21 07:37 Lymph # (Auto) 0.7 10^3/uL (0.8-4.8) L 10/09/21 07:37 [place] # (Auto) 0.8 10^3/uL (0.2-0.9) 10/09/21 07:37 Eos # (Auto) 0.0 10^3/uL (0.0-0.8) 10/09/21 07:37 Baso # (Auto) 0.0 10^3/uL (0.0-0.1) 10/09/21 07:37 Nucleated RBC % (auto) 0 % 10/09/21 07:37 Nucleated RBCs # 0.0 /100WBC 10/09/21 07:37 Sodium 133 mmol/L (136-145) L 10/09/21 07:37 Potassium 4.1 mmol/L (3.5-5.1) 10/09/21 07:37 Chloride 98 mmol/L (98-107) 10/09/21 07:37 Carbon Dioxide 19 mmol/L (22-29) L 10/09/21 07:37 Anion Gap 20.1 (5-19) H 10/09/21 07:37 BUN 7 mg/dL (6-20) 10/09/21 07:37 Creatinine 0.5 mg/dL (0.5-0.9) 10/09/21 07:37 GFR Calculation 150.3 mL/min (90-130) H 10/09/21 07:37 Glucose 148 mg/dL (65-115) H 10/09/21 07:37 Calculated Osmolality 277 mOsm/kg (285-295) L 10/09/21 07:37 Calcium 9.8 mg/dL (8.5-10.5) 10/09/21 07:37 Total Bilirubin 1.0 mg/dL (0.15-1.2) 10/09/21 07:37 AST 299 U/L (0-32) H 10/09/21 07:37 ALT 350 U/L (0-33) H 10/09/21 07:37 Alkaline Phosphatase 129 IU/L (35-105) H 10/09/21 07:37 Total Protein 8.2 g/dL (6.6-8.7) 10/09/21 07:37 Albumin 4.3 g/dL (3.5-5.2) 10/09/21 07:37 Globulin 3.9 g/dL (1.3-4.6) 10/09/21 07:37 Lipase 2759 U/L (13-60) H 10/09/21 07:37 HCG, Qual Negative (Negative) 10/09/21 08:01 Urine Color Dark yellow (Yellow) 10/09/21 07:37 Urine Appearance Hazy (CLEAR) A 10/09/21 07:37 Urine pH 5 (5-7) 10/09/21 07:37 Ur Specific [place] 1.025 (1.005-1.030) 10/09/21 07:37 Urine Protein 1+ (Negative) H 10/09/21 07:37 Urine Glucose (UA) Norm (Normal) 10/09/21 07:37 Urine Ketones 2+ (Negative) H 10/09/21 07:37 Urine Blood Neg (Negative) 10/09/21 07:37 Urine Nitrate Negative (Negative) 10/09/21 07:37 Urine Bilirubin 1+ (Negative) H 10/09/21 07:37 Urine Urobilinogen 4 mg/dL (Negative) H 10/09/21 07:37 Ur Leukocyte Esterase Trace (Negative) H 10/09/21 07:37 Urine RBC None /hpf (0-2) 10/09/21 07:37 Urine WBC 0-4 /hpf (0-5) H 10/09/21 07:37 Ur Squamous Epith Cells 5-10 /hpf (0-5) H 10/09/21 07:37 Amorphous Sediment 3+ /hpf 10/09/21 07:37 Urine Bacteria 1+ /hpf (NONE) H 10/09/21 07:37 A&P Assessment and plan (1) Acute pancreatitis: Clinically more consistent with alcohol induced pancreatitis although she does have stones noted on ultrasound imaging. Mild gallbladder wall thickening is apparent but no common bile duct dilatation. Presently with leukocytosis but normal lactic acid. Vitals remained stable. Pain is most predominant symptom with only one episode of vomiting and nausea primarily at the peak of pain. IV fluids Clear liquids Pain control Laxative therapy secondary to narcotics Serial lab Check hemoglobin A1c (has a history of gestational diabetes and glucose intolerance) Reviewed with patient that alcohol is most likely etiology of pancreatitis based on information obtained today and that continued use of alcohol could lead to recurrent episodes of pancreatitis and even chronic pancreatitis. We talked about cessation of alcohol and signs and symptoms of alcohol withdrawal briefly. Will monitor for signs of alcohol withdrawal while here. We also talked about the fact that gallbladder disease, medications, certain genetic conditions and particularly in female population being overweight can contribute to pancreatitis. Status: Acute Qualifiers: Pancreatitis type: alcohol induced Acute pancreatitis complication: no infection or necrosis Qualified Code(s): K85.20 - Alcohol induced acute pancreatitis without necrosis or infection (2) Cholelithiasis: With mild gallbladder wall thickening noted on imaging today but normal common bile duct. Suspect incidental finding rather than cause of pancreatitis based on history however certainly could be a contributing factor. Reviewed with patient that at some point in time she may need to have her gallbladder out. We will monitor liver enzymes Status: Acute Qualifiers: Cholelithiasis location: gallbladder Cholecystitis presence: without cholecystitis Biliary obstruction: without biliary obstruction Qualified Code(s): K80.20 - Calculus of gallbladder without cholecystitis without obs truction (3) Alcohol abuse: Not a daily drinker, more of a binge type drinker several times a week, no history of alcohol withdrawal symptoms described Banana bag, followed by oral thiamine, folate and multivitamin Check INR Encouraged alcohol cessation Status: Acute Plan Abnormal urinalysis suggestive of a dirty specimen Inpatient admission given degree of pancreatic inflammation Blood culture has been ordered Lovenox for DVT prophylaxis PPI for GI prophylaxis Supportive care otherwise Findings, concerns and plans were discussed with patient and she was given an opportunity to ask questions Anticipate discharge home with outpatient follow-up with primary care provider Full code Attestations Medical Necessity Statement*: Anticipated stay greater than two midnights inpatient presenting with first episode of pancreatitis with significant elevation in lipase and inflammatory findings on CT imaging. Plans are as noted. Receiving IV fluids, IV pain medications and other management as noted. Coding Level of Care Code Acute Media Librarian for [facility] [place] Fwd Diagnoses Acute pancreatitis K85.20 Pancreatitis type: alcohol induced Acute pancreatitis complication: no infection or necrosis Alcohol abuse F10.10 Cholelithiasis K80.20 Cholelithiasis location: gallbladder Cholecystitis presence: without cholecystitis Biliary obstruction: without biliary obstruction
[2021-10-09 12:45] LABS: INR 1.08 (0.8-1.2)
[2021-10-09] MEDS: enoxaparin 40 mg/0.4 mL Syringe SUBCUT (14:02)
[2021-10-09] MEDS: pantoprazole DR 40 mg Tablet PO (14:02)
[2021-10-09] MEDS: folic acid 1 MG, multivitamin inj 10 ML, thiamine 100 MG in sodium chloride 0.9% 1,000 ML 252.8 MG IV (14:03)
[2021-10-09] MEDS: acetaminophen 325 mg Tablet 650 MG PO (16:21)
[2021-10-09 18:01] LABS: Blood Urea Nitrogen 5 mg/dL (6-20); Carbon Dioxide 16 mmol/L (22-29); Chloride 106 mmol/L (98-107); Glomerular Filtration Rate 194.5 mL/min (90-130); Glucose 88 mg/dL (65-115); Osmolality Calculated 277 mOsm/kg (285-295); Sodium 135 mmol/L (136-145)
[2021-10-09 18:03] LABS: Anion Gap 16.9 (5-19); Potassium 3.9 mmol/L (3.5-5.1)
[2021-10-09] MEDS: sodium chlor 0.9% + KCl 20 mEq 20 MEQ/1,000 ML BAG 150 MEQ IV (19:06)
[2021-10-09] MEDS: sennosides 8.6 mg Tablet 17.2 MG PO (22:10)
[2021-10-10] VITALS (10 sets, daily range): BP systolic 112–125; BP diastolic 62–78; PULSE 94–110; RESP 16–22; TEMP 36.8–37.5; O2SAT 91–97
[2021-10-10] MEDS: sodium chlor 0.9% + KCl 20 mEq 20 MEQ/1,000 ML BAG 150 MEQ IV ×3 (02:48→18:45)
[2021-10-10] MEDS: morphine 4 mg/mL SDV 1 mL IVP ×5 (02:56→21:12)
[2021-10-10 06:11] LABS: Basophils % 0.2 %; Eosinophils % 0.1 %; Hematocrit 43.8 % (37.0-47.0); Hemoglobin 13.8 g/dL (11.5-15.3); Lymphocytes # 1.6 10^3/uL (0.8-4.8); Lymphocytes % 8.3 %; Mean Corpuscular HGB Conc 31.5 g/dL (30.0-36.0); Mean Corpuscular Hemoglobin 28.2 pg (28.0-34.0); Mean Corpuscular Volume 89.4 fl (81-99); Mean Platelet Volume 11.2 fL (7.4-10.4); Monocytes # 1.2 10^3/uL (0.2-0.9); Monocytes % 5.9 %; Neutrophils # 16.91 10^3/uL (1.8-7.7); Neutrophils % 85.1 %; Nucleated Red Blood Cells % 0 %; Platelet Count 266 10^3/cmm (130-400); Red Cell Distribution Width 14.1 % (12.1-15.1); White Blood Count 19.8 10^3/uL (4.0-10.0)
[2021-10-10 06:24] LABS: Estmated Average Glucose 103; Hemoglobin A1C 5.2 % (4.0-6.0)
[2021-10-10 06:30] LABS: Alanine Aminotransferase 142 U/L (0-33); Albumin Level 3.2 g/dL (3.5-5.2); Alkaline Phosphatase 80 IU/L (35-105); Blood Urea Nitrogen 5 mg/dL (6-20); Calcium 7.6 mg/dL (8.5-10.5); Carbon Dioxide 20 mmol/L (22-29); Chloride 105 mmol/L (98-107); Chol HDL Ratio 2.31 mg/dL (0.0-4.40); Cholesterol 125 mg/dL (0-200); Globulin 2.9 g/dL (1.3-4.6); Glomerular Filtration Rate 194.5 mL/min (90-130); Glucose 84 mg/dL (65-115); HDL Cholesterol 54 mg/dL (60-100); LDL Cholesterol Calculated 48 mg/dL (50-129); LDL HDL Ratio 0.89 RATIO (0.00-3.22); Magnesium 1.9 mg/dL (1.7-2.3); Osmolality Calculated 274 mOsm/kg (285-295); Phosphorus 1.9 mg/dL (2.5-4.5); Sodium 134 mmol/L (136-145); Total Bilirubin 0.6 mg/dL (0.15-1.2); Total Protein 6.1 g/dL (6.6-8.7); Triglycerides 117 mg/dL (0-150)
[2021-10-10 06:36] LABS: Aspartate Amino Transferase 60 U/L (0-32)
[2021-10-10 06:41] LABS: Lipase 1204 U/L (13-60)
--- NOTE | 2021-10-10 07:44 | P.PN_ITS ---
Subjective Subjective: Patient was seen and examined this morning, complained of significant abdominal pain, denies any nausea vomiting. Medications: Reviewed: Yes Medication Review Details: Generic Name Dose Route Start Last Admin Trade Name Selam PRN Reason Stop Dose Admin Acetaminophen 650 mg 10/09/21 12:32 10/09/21 16:21 Acetaminophen 32 5 Mg Tablet PO 650 mg Q6H PRN Administration Mild/Mod Pain Or Temp >/= 101 Docusate Sodium 100 mg 10/09/21 18:00 10/10/21 17:08 Docusate Sodium 100 Mg Capsule PO 100 mg BID LETICIA Administration Enoxaparin Sodium 40 mg 10/09/21 12:32 10/10/21 13:00 Enoxaparin 40 Mg /0.4 Ml Syringe SUBCUT 40 mg Q24H LETICIA Administration Folic Acid 1 mg 10/10/21 09:00 10/10/21 08:32 Folic Acid 1 Mg Tablet PO 1 mg DAILY LETICIA Administration Potassium Chloride /Sodium Chloride 20 meq in 1,000 m ls @ 150 mls/hr 10/09/21 12:32 10/10/21 10:52 Sodium Chlor 0.9 % + Kcl 20 Meq IV 150 mls/hr .Q6H40M LETICIA Administration Morphine Sulfate 4 mg 10/09/21 12:32 10/10/21 17:07 Morphine 4 Mg/Ml Sdv 1 Ml IVP 4 mg Q4H PRN Administration SEVERE PAIN Multivitamins Ther apeutic 1 tab 10/10/21 09:00 10/10/21 08:32 Multivitamin The rapeutic Tablet PO 1 tab DAILY LETICIA Administration Ondansetron HCl 4 mg 10/09/21 12:32 10/10/21 17:08 Ondansetron 2 Mg /Ml Sdv 2 Ml IVP 4 mg Q6H PRN Administration vomiting, or N/V if npo Pantoprazole Sodiu m 40 mg 10/09/21 12:32 10/10/21 08:[address] 40 Mg Tablet PO 40 mg DAILY LETICIA Administration Senna 17.2 mg 10/09/21 21:00 10/09/21 22:10 Sennosides 8.6 M g Tablet PO 17.2 mg BEDTIME LETICIA Administration Thiamine Mononitra te 100 mg 10/10/21 09:00 10/10/21 08:32 Thiamine 100 Mg Tablet PO 100 mg DAILY LETICIA Administration Vitals/I&O/Wt Last Vital Signs Temp 99.5 F 10/10/21 04:00 Pulse 104 H 10/10/21 04:00 Resp 18 10/10/21 04:00 BP 112/67 10/10/21 04:00 Pulse Ox 93 10/10/21 04:00 10/09/21 10/10/21 10/10/21 22:59 06:59 14:59 Intake Total 1231.2 / 4231.2 1000 / 5231.2 Balance 1231.2 / 4231.2 1000 / 5231.2 Weight last 48 hrs Weight 84.051 kg Weight 79.379 kg Physical Exam Const: COMMON NORMALS: patient oriented x3 HENMT: COMMON NORMALS: normocephalic, atraumatic, hearing grossly normal bilaterally and external ears normal HEAD & SCALP: normocephalic and atraumatic EXTERNAL EAR: Yes external ears normal Eye: COMMON NORMALS: no scleral icterus GENERAL EYE: appearance normal, both eyes and all related structures Chest: COMMONS NORMALS: normal inspection of the chest and normal palpation of entire chest wall CHEST: Yes Symmetrical chest wall rise Resp: COMMON NORMALS: normal respiratory effort, No retractions, No use of accessory muscles and clear to auscultation bilaterally EFFORT & INSPECTION: Yes symmetric chest movement AUSCULTATION: clear to auscultation bilaterally Cardio: COMMON NORMALS: regular rate, regular rhythm, S1 normal heart sound present, S2 normal heart sound present, No gallops present (Cardio), No murmurs present (Cardio), No rub (Cardio) and Peripheral pulses 2+ throughout RATE: regular rate RHYTHM: regular rhythm HEART SOUNDS: S1 normal heart sound present and S2 normal heart sound present PERIPHERAL PULSES: Peripheral pulses 2+ throughout GI: RECTAL EXAM: deferred OTHER: Hypoactive bowel sounds, epigastric and left lower tenderness present. Extremity: COMMON NORMALS: no clubbing, cyanosis or edema and no pedal edema Neuro: COMMON NORMALS: patient oriented x3 Data : 10/10/21 05:24 10/10/21 05:24 Micro: Microbiology 10/09/21 10:56 Blood Culture - Preliminary Blood SPECIMEN COLLECTED A&P Assessment and plan (1) Acute pancreatitis: Assessment: # Acute pancreatitis: Likely secondary to alcohol use. Though she has cholelithiasis, ultrasound abdomen: Has shown gallbladder wall thickening with normal common bile duct. LFTs improving, though she has persistent leukocytosis, but currently has sonja ined afebrile, lactic acid is normal. Blood culture: NTD Current plan is to continue with IV hydration , pain control , continue to monitor CMP. We will hold off on antibiotics for now. Status: Acute Qualifiers: Acute pancreatitis complication: no infection or necrosis Pancreatitis type: alcohol induced Qualified Code(s): K85.20 - Alcohol induced acute pancreatitis without necrosis or infection (2) Cholelithiasis: With mild gallbladder wall thickening noted on imaging today but normal common bile duct. Suspect incidental finding rather than cause of pancreatitis based on history however certainly could be a contributing factor. Reviewed with patient that at some point in time she may need to have her gallbladder out. We will monitor liver enzymes Status: Acute Qualifiers: Biliary obstruction: without biliary obstruction Cholecystitis presence: without cholecystitis Cholelithiasis location: gallbladder Qualified Code(s): K80.20 - Calculus of gallbladder without cholecystitis without obstruction (3) Alcohol abuse: Not a daily drinker, more of a binge type drinker several times a week, no history of alcohol withdrawal symptoms described Banana bag, followed by oral thiamine, folate and multivitamin Check INR Encouraged alcohol cessation Status: Acute Plan #CODE STATUS: Full code #DVT prophylaxis: On Lovenox Attestations Medical Necessity Statement*: Patient needs to be in hospital for management of acute pancreatitis. Time Spent in Patient Care: Greater than 35 minutes (>than 50% of time spent in counselling and/or direct pt care on unit) . Coding Level of Care Code Acute Paving Stone Installer for [facility] Fwd Exam Comprehensive Diagnoses Acute pancreatitis K85.20 Acute pancreatitis complication: no infection or necrosis Pancreatitis type: alcohol induced Cholelithiasis K80.20 Biliary obstruction: without biliary obstruction Cholecystitis presence: without cholecystitis Cholelithiasis location: gallbladder Alcohol abuse F10.10
[2021-10-10] MEDS: ondansetron 2 mg/ML SDV 2 mL 4 MG IVP ×2 (08:31→17:08)
[2021-10-10] MEDS: pantoprazole DR 40 mg Tablet PO (08:32)
[2021-10-10] MEDS: docusate sodium 100 mg Capsule PO ×2 (08:32→17:08)
[2021-10-10] MEDS: folic acid 1 mg Tablet PO (08:32)
[2021-10-10] MEDS: multivitamin therapeutic Tablet 1 TAB PO (08:32)
[2021-10-10] MEDS: thiamine 100 mg Tablet PO (08:32)
[2021-10-10] MEDS: enoxaparin 40 mg/0.4 mL Syringe SUBCUT (13:00)
[2021-10-10] MEDS: sennosides 8.6 mg Tablet 17.2 MG PO (21:12)
[2021-10-11] VITALS (10 sets, daily range): BP systolic 114–142; BP diastolic 70–90; PULSE 119–127; RESP 16–20; TEMP 36.7–38; O2SAT 90–94
[2021-10-11] MEDS: acetaminophen 325 mg Tablet 650 MG PO (00:13)
[2021-10-11] MEDS: sodium chlor 0.9% + KCl 20 mEq 20 MEQ/1,000 ML BAG 150 MEQ IV ×3 (01:56→17:25)
[2021-10-11] MEDS: morphine 4 mg/mL SDV 1 mL IVP ×2 (04:54→09:43)
[2021-10-11] MEDS: ondansetron 2 mg/ML SDV 2 mL 4 MG IVP ×2 (04:56→20:59)
[2021-10-11 06:01] LABS: Basophils % 0.2 %; Eosinophils % 0.2 %; Hemoglobin 12.1 g/dL (11.5-15.3); Lymphocytes # 1.1 10^3/uL (0.8-4.8); Lymphocytes % 5.6 %; Mean Corpuscular HGB Conc 31.8 g/dL (30.0-36.0); Mean Corpuscular Hemoglobin 28.2 pg (28.0-34.0); Mean Corpuscular Volume 88.6 fl (81-99); Mean Platelet Volume 10.3 fL (7.4-10.4); Monocytes # 1.5 10^3/uL (0.2-0.9); Monocytes % 7.8 %; Neutrophils # 16.06 10^3/uL (1.8-7.7); Neutrophils % 85.5 %; Nucleated Red Blood Cells % 0 %; Platelet Count 270 10^3/cmm (130-400); Red Blood Count 4.29 10^6/uL (4.1-5.3); White Blood Count 18.8 10^3/uL (4.0-10.0)
[2021-10-11 06:23] LABS: Alanine Aminotransferase 71 U/L (0-33); Albumin Level 2.8 g/dL (3.5-5.2); Alkaline Phosphatase 66 IU/L (35-105); Anion Gap 12.9 (5-19); Aspartate Amino Transferase 28 U/L (0-32); Blood Urea Nitrogen 5 mg/dL (6-20); Calcium 7.6 mg/dL (8.5-10.5); Carbon Dioxide 21 mmol/L (22-29); Chloride 105 mmol/L (98-107); Globulin 2.8 g/dL (1.3-4.6); Glomerular Filtration Rate 150.3 mL/min (90-130); Glucose 97 mg/dL (65-115); Osmolality Calculated 277 mOsm/kg (285-295); Potassium 3.9 mmol/L (3.5-5.1); Sodium 135 mmol/L (136-145); Total Bilirubin 0.8 mg/dL (0.15-1.2); Total Protein 5.6 g/dL (6.6-8.7)
[2021-10-11 06:31] LABS: Lipase 416 U/L (13-60)
[2021-10-11] MEDS: pantoprazole DR 40 mg Tablet PO (08:08)
[2021-10-11] MEDS: docusate sodium 100 mg Capsule PO ×2 (08:08→17:25)
[2021-10-11] MEDS: folic acid 1 mg Tablet PO (08:08)
[2021-10-11] MEDS: bisacodyl 5 mg Tablet 10 MG PO (08:08)
[2021-10-11] MEDS: multivitamin therapeutic Tablet 1 TAB PO (08:08)
[2021-10-11] MEDS: thiamine 100 mg Tablet PO (08:08)
[2021-10-11] MEDS: enoxaparin 40 mg/0.4 mL Syringe SUBCUT (12:53)
[2021-10-11] MEDS: oxyCODONE-APAP 5-325 mg Tablet 1 TAB PO ×2 (15:23→20:58)
--- NOTE | 2021-10-11 17:13 | PM.PN ---
Subjective Subjective: Patient was seen and examined this morning, complained of significant abdominal pain, denies any nausea vomiting. Had low-grade temperature: Tmax : 100.4. We will closely monitor for any possible development of complicated acute pancreatitis (if patient continues to spike temperatures, will likely need repeat imaging studies, elevation of possible necrosis) Medications: Reviewed: Yes Medication Review Details: Generic Name Dose Route Start Last Admin Trade Name Freq PRN Reason Stop Dose Admin Acetaminophen 650 mg 10/09/21 12:32 10/09/21 16:21 Acetaminophen 32 5 Mg Tablet PO 650 mg Q6H PRN Administration Mild/Mod Pain Or Temp >/= 101 Docusate Sodium 100 mg 10/09/21 18:00 10/10/21 17:08 Docusate Sodium 100 Mg Capsule PO 100 mg BID LETICIA Administration Enoxaparin Sodium 40 mg 10/09/21 12:32 10/10/21 13:00 Enoxaparin 40 Mg /0.4 Ml Syringe SUBCUT 40 mg Q24H LETICIA Administration Folic Acid 1 mg 10/10/21 09:00 10/10/21 08:32 Folic Acid 1 Mg Tablet PO 1 mg DAILY LETICIA Administration Potassium Chloride /Sodium Chloride 20 meq in 1,000 m ls @ 150 mls/hr 10/09/21 12:32 10/10/21 10:52 Sodium Chlor 0.9 % + Kcl 20 Meq IV 150 mls/hr .Q6H40M LETICIA Administration Morphine Sulfate 4 mg 10/09/21 12:32 10/10/21 17:07 Morphine 4 Mg/Ml Sdv 1 Ml IVP 4 mg Q4H PRN Administration SEVERE PAIN Multivitamins Ther apeutic 1 tab 10/10/21 09:00 10/10/21 08:32 Multivitamin The rapeutic Tablet PO 1 tab DAILY LETICIA Administration Ondansetron HCl 4 mg 10/09/21 12:32 10/10/21 17:08 Ondansetron 2 Mg /Ml Sdv 2 Ml IVP 4 mg Q6H PRN Administration vomiting, or N/V if npo Pantoprazole Sodiu m 40 mg 10/09/21 12:32 10/10/21 08:[address] 40 Mg Tablet PO 40 mg DAILY LETICIA Administration Senna 17.2 mg 10/09/21 21:00 10/09/21 22:10 Sennosides 8.6 M g Tablet PO 17.2 mg BEDTIME LETICIA Administration Thiamine Mononitra te 100 mg 10/10/21 09:00 10/10/21 08:32 Thiamine 100 Mg Tablet PO 100 mg DAILY LETICIA Administration Vitals/I&O/Wt Last Vital Signs Temp 99.7 F H 10/11/21 12:05 Pulse 119 H 10/11/21 12:05 Resp 18 10/11/21 15:23 BP 117/82 10/11/21 12:05 Pulse Ox 90 10/11/21 12:05 10/11/21 10/11/21 10/11/21 06:59 14:59 22:59 Intake Total 1000 / 3240 940 / 940 Balance 1000 / 3240 940 / 940 Physical Exam Const: COMMON NORMALS: patient oriented x3 HENMT: COMMON NORMALS: normocephalic, atraumatic, hearing grossly normal bilaterally and external ears normal HEAD & SCALP: normocephalic and atraumatic EXTERNAL EAR: Yes external ears normal Eye: COMMON NORMALS: no scleral icterus GENERAL EYE: appearance normal, both eyes and all related structures Chest: COMMONS NORMALS: normal inspection of the chest and normal palpation of entire chest wall CHEST: Yes Symmetrical chest wall rise Resp: COMMON NORMALS: normal respiratory effort, No retractions, No use of accessory muscles and clear to auscultation bilaterally EFFORT & INSPECTION: Yes symmetric chest movement AUSCULTATION: clear to auscultation bilaterally Cardio: COMMON NORMALS: regular rate, regular rhythm, S1 normal heart sound present, S2 normal heart sound present, No gallops present (Cardio), No murmurs present (Cardio), No rub (Cardio) and Peripheral pulses 2+ throughout RATE: regular rate RHYTHM: regular rhythm HEART SOUNDS: S1 normal heart sound present and S2 normal heart sound present PERIPHERAL PULSES: Peripheral pulses 2+ throughout GI: COMMON NORMALS: Normal to inspection, nondistended, normoactive bowel sounds present, Soft to palpation, non-tender, No hepatosplenomegaly present and no masses AUSCULTATION: Yes normoactive bowel sounds PALPATION: Yes Soft to palpation and Yes No hepatosplenomegaly present RECTAL EXAM: deferred OTHER: Hypoactive bowel sounds, epigastric and left lower tenderness present. Extremity: COMMON NORMALS: no clubbing, cyanosis or edema and no pedal edema Neuro: COMMON NORMALS: patient oriented x3 Data : 10/11/21 05:50 10/11/21 05:50 A&P Assessment and plan (1) Acute pancreatitis: Assessment: # Acute pancreatitis: Likely secondary to alcohol use. Though she has cholelithiasis, ultrasound abdomen: Has shown gallbladder wall thickening with normal common bile duct. LFTs improving, though she has persistent leukocytosis, but currently has remained afebrile, lactic acid is normal. Blood culture: NTD Current plan is to continue with IV hydration , pain control , continue to monitor CMP. We will hold off on antibiotics for now. Status: Acute Qualifiers: Pancreatitis type: alcohol induced Acute pancreatitis complication: no infection or necrosis Qualified Code(s): K85.20 - Alcohol induced acute pancreatitis without necrosis or infection (2) Cholelithiasis: With mild gallbladder wall thickening noted on imaging today but normal common bile duct. Suspect incidental finding rather than cause of pancreatitis based on history however certainly could be a contributing factor. Reviewed with patient that at some point in time she may need to have her gallbladder out. We will monitor liver enzymes Status: Acute Qualifiers: Cholelithiasis location: gallbladder Cholecystitis presence: without cholecystitis Biliary obstruction: without biliary obstruction Qualified Code(s): K80.20 - Calculus of gallbladder without cholecystitis without obstruction (3) Alcohol abuse: Not a daily drinker, more of a binge type drinker several times a week, no history of alcohol withdrawal symptoms described Banana bag, followed by oral thiamine, folate and multivitamin Check INR Encouraged alcohol cessation Status: Acute Plan #CODE STATUS: Full code #DVT prophylaxis: On Lovenox Attestations Medical Necessity Statement*: She needs to be in hospital for management of acute pancreatitis. Coding Level of Care Code Acute Case Management Social Worker for [facility] Diagnoses Acute pancreatitis K85.20 Pancreatitis type: alcohol induced Acute pancreatitis complication: no infection or necrosis Cholelithiasis K80.20 Cholelithiasis location: gallbladder Cholecystitis presence: without cholecystitis Biliary obstruction: without biliary obstruction Alcohol abuse F10.10
[2021-10-11] MEDS: sennosides 8.6 mg Tablet 17.2 MG PO (20:33)
--- NOTE | 2021-10-11 21:23 | PC.NURSE ---
i reported high pulse 120 and high reps 20 to nurse
[2021-10-12] VITALS (7 sets, daily range): BP systolic 126–136; BP diastolic 60–86; PULSE 108–120; RESP 18–19; TEMP 36.8–37.2; O2SAT 90–93
--- NOTE | 2021-10-12 00:16 | PC.NURSE ---
Refusing fluids Screw Supervisor was called to patients room, patient stated she wanted a break from her fluids. Screw Supervisor explained she had already been off from them for several hours earlier in the shift and it was important she continue with her fluids D/T her Dx. Patient stated she felt very swollen and uncomfortable and wanted a break from the fluids. Screw Supervisor noted some non-pitting swelling/edema to patients bilateral ankles and legs, patient also states her ABD felt uncomfortable. Fluids were stopped, charge nurse notified.
--- NOTE | 2021-10-12 00:47 | PC.NURSE ---
i reported high pulse 114 to nurse
[2021-10-12] MEDS: oxyCODONE-APAP 5-325 mg Tablet 1 TAB PO ×3 (04:21→13:29)
--- NOTE | 2021-10-12 06:06 | PC.NURSE ---
i reported high pulse 108 to nurse
[2021-10-12 06:16] LABS: Basophils % 0.2 %; Eosinophils % 0.2 %; Hemoglobin 11.5 g/dL (11.5-15.3); Lymphocytes % 5.6 %; Mean Corpuscular HGB Conc 31.9 g/dL (30.0-36.0); Mean Corpuscular Hemoglobin 28.8 pg (28.0-34.0); Mean Platelet Volume 10.8 fL (7.4-10.4); Monocytes # 1.6 10^3/uL (0.2-0.9); Monocytes % 9.1 %; Neutrophils # 15.03 10^3/uL (1.8-7.7); Neutrophils % 84.3 %; Nucleated Red Blood Cells % 0 %; Platelet Count 286 10^3/cmm (130-400); Red Cell Distribution Width 13.8 % (12.1-15.1); White Blood Count 17.8 10^3/uL (4.0-10.0)
[2021-10-12 06:38] LABS: Alanine Aminotransferase 53 U/L (0-33); Albumin Level 2.6 g/dL (3.5-5.2); Alkaline Phosphatase 80 IU/L (35-105); Anion Gap 14.8 (5-19); Aspartate Amino Transferase 27 U/L (0-32); Blood Urea Nitrogen 5 mg/dL (6-20); Calcium 8.4 mg/dL (8.5-10.5); Carbon Dioxide 18 mmol/L (22-29); Chloride 101 mmol/L (98-107); Globulin 3.2 g/dL (1.3-4.6); Glomerular Filtration Rate 194.5 mL/min (90-130); Glucose 108 mg/dL (65-115); Osmolality Calculated 268 mOsm/kg (285-295); Potassium 3.8 mmol/L (3.5-5.1); Sodium 130 mmol/L (136-145); Total Bilirubin 0.7 mg/dL (0.15-1.2); Total Protein 5.8 g/dL (6.6-8.7)
[2021-10-12] MEDS: pantoprazole DR 40 mg Tablet PO (09:20)
[2021-10-12] MEDS: docusate sodium 100 mg Capsule PO (09:20)
[2021-10-12] MEDS: thiamine 100 mg Tablet PO (09:21)
[2021-10-12] MEDS: multivitamin therapeutic Tablet 1 TAB PO (09:21)
[2021-10-12] MEDS: folic acid 1 mg Tablet PO (09:21)
--- NOTE | 2021-10-12 09:32 | PC.CHAP ---
Pastoral Care Encounter/Spiritual Assessment Type of Contact [] Declined advertising solicitor visit [] Patient/Family/Request visit [] Outpatient visit [] Follow-up visit [] Physician referral [] Code/Alert [x] Routine visit [] Staff referral [] Actively dying [x] Patient sleeping [] Family support [] [] Out of room [] Palliative care [] [] Receiving care in room [] Pre-surgical visit [] Trauma [] Long length of stay [] ICU visit [] Other: Relational/Emotional Strength [] Patient feels connected with others/family/visitors/staff [] Distress [] Loneliness/isolation [] Abandonment Spirituality of Patient [] Person of Sally [] Attends Sikhism of their Sally [] Believes in Prayer [] Reads Bible or Mandaen materials [] There are Spiritual issues to be addressed Safe Deposit Clerk Interventions [] Prayer [] Active listening [] Non-anxious presence [] Spiritual/emotional support [] Crisis/trauma care [] Spiritual counseling [] Bereavement support [] Provided bereavement packet [] Provided Bible/devotional materials [] Provided toy/stuffed animal, coloring book to patient or family member [] Provided Communion [] Anointing/Busby [] Salvation [] Completed spiritual assessment [] Other: Impact on Illness or Injury [] Angry [] Fearful [] Anxious [] Often cries [] Exhaustion [] Unable to work [] Unable to attend tenriism [] Unable to walk/stand [] Unable to read [] Unable to drive [] Unable to eat/drink [] Unable to sleep [] Unable to be with family [] Patient intubated [] Other: Summary Time spent with patient
--- NOTE | 2021-10-12 11:01 | PM.DCS ---
Discharge Providers Date of Admission: 10/09/21 10:51 Date of Discharge: October 12, 2021 Attending Provider at Admission: Danna Major MD Attending Provider at Discharge: Trey Saxena MD Primary Care Provider: Jo Wilkins Diagnoses at Discharge Discharge Diagnosis (1) Acute pancreatitis: Status: Acute Qualifiers: Acute pancreatitis complication: no infection or necrosis Pancreatitis type: alcohol induced Qualified Code(s): K85.20 - Alcohol induced acute pancreatitis without necrosis or infection (2) Cholelithiasis: Status: Acute Qualifiers: Biliary obstruction: without biliary obstruction Cholecystitis presence: without cholecystitis Cholelithiasis location: gallbladder Qualified Code(s): K80.20 - Calculus of gallbladder without cholecystitis without obstruction (3) Alcohol abuse: Status: Acute Reason for Visit Reason for Visit: Abd Pain lower middle to lower left Hospital Course Hospital Course 25 year old female. No significant past medical history came in with chief complaint of epigastric pain radiating through to her back. She was admitted for the management of acute pancreatitis likely secondary to alcohol abuse disorder, CT abdomen pelvis done on admission Diffuse pancreatic edema with diffuse surrounding peripancreatic fluid compatible with pancreatitis. Recommend correlation with pancreatic enzymes.Portal vein and splenic vein are patent.Gallbladder wall enhancement most likely reactive. Mild prominence of the common bile duct measuring 6 mm. She had elevated serum lipase:ultrasound abdomen:Has shown gallbladder wall thickening with normal common bile duct. She was kept on IV hydration pain control, clear liquid diet was started once she was able to tolerate it, which was subsequently advanced.Patient was tolerating full liquid diet at the time of discharge, blood cultures were negative, lactic acid was normal, patient at the time of discharge, denied any nausea vomiting, though she still had some abdominal discomfort, at the time of discharge, but it was getting better, during the hospital stay thogh she had one one episode of low-grade fever noted T-max was:100.4, but thereafter she remained afebrile, clinical suspicion for complicated pancreatitis is low. Advised to monitor her symptoms, if she develop worsening abdominal pain nausea vomiting fever, shortness of breath , dizziness , she has been advised to come back to the hospital. Patient has also been asked to see Dr. Franco as an outpatient for management of cholelithiasis. Patient responded well to above medical management and is being discharged home in stable condition. Follow-up primary care physician as an outpatient, has been counseled on binge drinking. Physical Exam Const: COMMON NORMALS: patient oriented x3 HENMT: COMMON NORMALS: normocephalic, atraumatic, hearing grossly normal bilaterally and external ears normal HEAD & SCALP: normocephalic and atraumatic EXTERNAL EAR: Yes external ears normal Eye: COMMON NORMALS: no scleral icterus GENERAL EYE: appearance normal, both eyes and all related structures Chest: COMMONS NORMALS: normal inspection of the chest and normal palpation of entire chest wall CHEST: Yes Symmetrical chest wall rise Resp: COMMON NORMALS: normal respiratory effort, No retractions, No use of accessory muscles and clear to auscultation bilaterally EFFORT & INSPECTION: Yes symmetric chest movement AUSCULTATION: clear to auscultation bilaterally Cardio: COMMON NORMALS: regular rate, regular rhythm, S1 normal heart sound present, S2 normal heart sound present, No gallops present (Cardio), No murmurs present (Cardio), No rub (Cardio) and Peripheral pulses 2+ throughout RATE: regular rate RHYTHM: regular rhythm HEART SOUNDS: S1 normal heart sound present and S2 normal heart sound present PERIPHERAL PULSES: Peripheral pulses 2+ throughout GI: COMMON NORMALS: Normal to inspection, nondistended, normoactive bowel sounds present, Soft to palpation, non-tender, No hepatosplenomegaly present and no masses AUSCULTATION: Yes normoactive bowel sounds PALPATION: Yes Soft to palpation and Yes No hepatosplenomegaly present RECTAL EXAM: deferred Extremity: COMMON NORMALS: no clubbing, cyanosis or edema and no pedal edema Neuro: COMMON NORMALS: patient oriented x3 Discharge Data Studies Completed and Pending Completed Studies During Hospitalization Category Date Time Status CT abdomen pelvis w con* [id number] Stat Cat Scan 10/09/21 07:27 Completed US gall bladder [id number] Stat Ultrasound 10/09/21 09:46 Completed Pending at discharge Category Date Time Status Blood Culture Routine Lab 10/09/21 10:56 Results CBC Auto Diff [Complete Blood Count w/Auto] AM LABS Lab 10/13/21 04:00 Ordered CMP [Comprehensive Metabolic Panel] AM LABS Lab 10/13/21 04:00 Ordered Radiology Impressions Abdomen/Pelvis CT 10/09/21 07:27 IMPRESSION: 1. Diffuse pancreatic edema with diffuse surrounding peripancreatic fluid compatible with pancreatitis. Recommend correlation with pancreatic enzymes. 2. Portal vein and splenic vein are patent. 3. Gallbladder wall enhancement most likely reactive. Mild prominence of the common bile duct measuring 6 mm. This could be further evaluated with MRCP. 4. Moderate fluid and edema extending into the pericolic gutters. Small amount of free fluid in the pelvis. 5. No hydronephrosis in either kidney. 6. Normal appendix in the RIGHT lower quadrant. Notified Don Ag DO at 10/09/2021 9:46 AM. Gallbladder Ultrasound 10/09/21 09:46 IMPRESSION: 1. Edematous pancreas with peripancreatic fluid compatible with pancreatitis. 2. Cholelithiasis with mild gallbladder wall thickening. Common bile duct within normal limits. 3. Normal liver and RIGHT kidney. Laboratory Results WBC 17.8 10^3/uL (4.0-10.0) H 10/12/21 05:46 RBC 4.00 10^6/uL (4.1-5.3) L 10/12/21 05:46 Hgb 11.5 g/dL (11.5-15.3) 10/12/21 05:46 Hct 36.0 % (37.0-47.0) L 10/12/21 05:46 MCV 90.0 fl (81-99) 10/12/21 05:46 MCH 28.8 pg (28.0-34.0) 10/12/21 05:46 MCHC 31.9 g/dL (30.0-36.0) 10/12/21 05:46 RDW 13.8 % (12.1-15.1) 10/12/21 05:46 Plt Count 286 10^3/cmm (130-400) 10/12/21 05:46 MPV 10.8 fL (7.4-10.4) H 10/12/21 05:46 Neut % (Auto) 84.3 % 10/12/21 05:46 Lymph % (Auto) 5.6 % 10/12/21 05:46 [place] % (Auto) 9.1 % 10/12/21 05:46 Eos % (Auto) 0.2 % 10/12/21 05:46 Baso % (Auto) 0.2 % 10/12/21 05:46 Neut # (Auto) 15.03 10^3/uL (1.8-7.7) H 10/12/21 05:46 Lymph # (Auto) 1.0 10^3/uL (0.8-4.8) 10/12/21 05:46 [place] # (Auto) 1.6 10^3/uL (0.2-0.9) H 10/12/21 05:46 Eos # (Auto) 0.0 10^3/uL (0.0-0.8) 10/12/21 05:46 Baso # (Auto) 0.0 10^3/uL (0.0-0.1) 10/12/21 05:46 Nucleated RBC % (auto) 0 % 10/12/21 05:46 Nucleated RBCs # 0.0 /100WBC 10/12/21 05:46 PT 14.40 SECONDS (12.1-14.9) 10/09/21 12:06 INR 1.08 (0.8-1.2) 10/09/21 12:06 Sodium 130 mmol/L (136-145) L 10/12/21 05:46 Potassium 3.8 mmol/L (3.5-5.1) 10/12/21 05:46 Chloride 101 mmol/L (98-107) 10/12/21 05:46 Carbon Dioxide 18 mmol/L (22-29) L 10/12/21 05:46 Anion Gap 14.8 (5-19) 10/12/21 05:46 BUN 5 mg/dL (6-20) L 10/12/21 05:46 Creatinine 0.4 mg/dL (0.5-0.9) L 10/12/21 05:46 GFR Calculation 194.5 mL/min (90-130) H 10/12/21 05:46 Glucose 108 mg/dL (65-115) 10/12/21 05:46 Estimat Average Glucose 103 10/10/21 05:24 Hemoglobin A1c 5.2 % (4.0-6.0) 10/10/21 05:24 Calculated Osmolality 268 mOsm/kg (285-295) L 10/12/21 05:46 Lactic Acid 1.0 mmol/L (0.5-2.2) 10/09/21 10:56 Calcium 8.4 mg/dL (8.5-10.5) L 10/12/21 05:46 Phosphorus 1.9 mg/dL (2.5-4.5) L 10/10/21 05:24 Magnesium 1.9 mg/dL (1.7-2.3) 10/10/21 05:24 Total Bilirubin 0.7 mg/dL (0.15-1.2) 10/12/21 05:46 AST 27 U/L (0-32) 10/12/21 05:46 ALT 53 U/L (0-33) H 10/12/21 05:46 Alkaline Phosphatase 80 IU/L (35-105) 10/12/21 05:46 Total Protein 5.8 g/dL (6.6-8.7) L 10/12/21 05:46 Albumin 2.6 g/dL (3.5-5.2) L 10/12/21 05:46 Globulin 3.2 g/dL (1.3-4.6) 10/12/21 05:46 Triglycerides 117 mg/dL (0-150) 10/10/21 05:24 Cholesterol 125 mg/dL (0-200) 10/10/21 05:24 LDL Cholesterol, Calc 48 mg/dL (50-129) L 10/10/21 05:24 HDL Cholesterol 54 mg/dL (60-100) L 10/10/21 05:24 LDL/HDL Ratio 0.89 RATIO (0.00-3.22) 10/10/21 05:24 Cholesterol/HDL Ratio 2.31 mg/dL (0.0-4.40) 10/10/21 05:24 Lipase 416 U/L (13-60) H 10/11/21 05:50 HCG, Qual Negative (Negative) 10/09/21 08:01 Urine Color Dark yellow (Yellow) 10/09/21 07:37 Urine Appearance Hazy (CLEAR) A 10/09/21 07:37 Urine pH 5 (5-7) 10/09/21 07:37 Ur Specific [place] 1.025 (1.005-1.030) 10/09/21 07:37 Urine Protein 1+ (Negative) H 10/09/21 07:37 Urine Glucose (UA) Norm (Normal) 10/09/21 07:37 Urine Ketones 2+ (Negative) H 10/09/21 07:37 Urine Blood Neg (Negative) 10/09/21 07:37 Urine Nitrate Negative (Negative) 10/09/21 07:37 Urine Bilirubin 1+ (Negative) H 10/09/21 07:37 Urine Urobilinogen 4 mg/dL (Negative) H 10/09/21 07:37 Ur Leukocyte Esterase Trace (Negative) H 10/09/21 07:37 Urine RBC None /hpf (0-2) 10/09/21 07:37 Urine WBC 0-4 /hpf (0-5) H 10/09/21 07:37 Ur Squamous Epith Cells 5-10 /hpf (0-5) H 10/09/21 07:37 Amorphous Sediment 3+ /hpf 10/09/21 07:37 Urine Bacteria 1+ /hpf (NONE) H 10/09/21 07:37 Vitals Last Vital Signs Temp 99.0 F 10/12/21 07:43 Pulse 115 H 10/12/21 07:43 Resp 18 10/12/21 09:19 BP 126/85 10/12/21 07:43 Pulse Ox 93 10/12/21 07:43 Discharge Plan Discharge Patient Disposition: Home Condition: Stable Prescriptions: New Zofran 4 mg tablet 4 mg PO Q6H PRN (Reason: nausea and vomiting) Qty: 10 0RF pantoprazole 40 mg Tablet,Delayed Release (Dr/Ec) 40 mg PO DAILY 30 Days Qty: 30 0RF folic acid 1 mg Tablet 1 mg PO DAILY 30 Days Qty: 30 0RF Vitamin B-1 (mononitrate) 100 mg Tablet 100 mg PO DAILY 30 Days Qty: 30 1RF Thera 400 mcg Tablet 1 tab PO DAILY 30 Days Qty: 30 0RF Percocet 5-325 mg tablet 1 tab PO Q8H Qty: 10 0RF Continued Aleve 220 mg Tablet 220 mg PO BID PRN (Reason: Pain) 0RF Discharge Orders: Discharge Order (Routine); Ordered 10/12/21 Ordered By: Trey Saxena Referrals: Ubaldo Franco MD [Physician] - 10/27/21 9:15 am Jo Wilkins PA [Primary Care Provider] - 10/25/21 11:00 am Discharge Diet: Regular Discharge Activity: Resume usual activity Patient Instructions: Alcohol Abuse, Oxycodone/Acetaminophen (By mouth), Folic Acid (By mouth), Ondansetron (By mouth), Isosorbide Mononitrate (By mouth), Pantoprazole (By mouth), Vitamin D (By mouth) (Delta D3, Nature's Blend Super Strength..., Cholelithiasis, Pancreatitis (DC), Opioid Safety Discharge Attestations Time Spent in Discharge Care*: greater than 30 min Specific Discharge Activities: educating patient, educating and/or supporting family/caregiver, discussing with pcp/other providers, discussing with window caser/social workers/dc planners, documenting/other paperwork and evaluating patient/reviewing data Quality Metrics Clinical Quality Measures [ No reported AMI, CVA or VTE this stay] Coding Level of Care Code Acute Chg FW DC note Diagnoses Acute pancreatitis K85.20 Acute pancreatitis complication: no infection or necrosis Pancreatitis type: alcohol induced Cholelithiasis K80.20 Biliary obstruction: without biliary obstruction Cholecystitis presence: without cholecystitis Cholelithiasis location: gallbladder Alcohol abuse F10.10
== END 2021-10-12 15:15 | disposition home or self-care (01) | DRG 440 ==
LOC: ER 10:03 → MEDSURG 11:27
PROVIDERS: Physician Assistant; Admitting Provider Hospitalist; Emergency Provider Family Medicine; PCP Physician Assistant; Visit Provider Internal Medicine
DX: K85.20 Alcohol induced acute pancreatitis without necrosis or infection (principal); F10.10 Alcohol abuse, uncomplicated; K80.20 Calculus of gallbladder without cholecystitis without obstruction; F17.210 Nicotine dependence, cigarettes, uncomplicated
CPT/HCPCS: 36415; 74177; 76705; 80048; 80053; 80061; 81001; 83036; 83605; 83690; 83735; 84100; 84703; 85025; 85610; 87040; 96372; 96374; 96375; 96376; 99285; C9113; J1650; J2270; J2405; J3411; J3490; J7030; Q9967

== ENCOUNTER 2021-10-14 18:42 | Emergency (ER) | payer BC, MEDICAID, SELFPAY ==
[2021-10-14 18:53] VITALS: BP 132/85; PULSE 122; RESP 18; TEMP 37.7; O2SAT 95; BMI 33.4
--- NOTE | 2021-10-14 19:32 | CTR_ITS ---
PROCEDURE INFORMATION: Exam: CT Abdomen And Pelvis With Contrast Exam date and time: 10/14/2021 7:32 PM Age: 25 years old Clinical indication: Abdominal pain; Localized; Left upper quadrant (luq); Additional info: Abd pain TECHNIQUE: Imaging protocol: Computed tomography of the abdomen and pelvis with contrast. Radiation optimization: All CT scans at this facility use at least one of these dose optimization techniques: automated exposure control; mA and/or kV adjustment per patient size (includes targeted exams where dose is matched to clinical indication); or iterative reconstruction. Contrast material: OMNI 300; Contrast volume: 95 ml; Contrast route: INTRAVENOUS (IV); COMPARISON: CT abdomen pelvis w con* [id number] 10/09/2021 9:08 AM RADIATION DOSE METRICS: Total DLP (mGy-cm): 1888.57 FINDINGS: Pleural spaces: There is consolidation at the posterior and inferior aspects of the left lower lobe at the lung bases associated with a small left pleural effusion. There is streaky consolidation at the right lung base. Liver: Normal. No mass. Gallbladder and bile ducts: Normal. No calcified stones. No ductal dilation. Pancreas: There is diffuse peripancreatic inflammatory stranding and fluid, consistent with acute pancreatitis. Spleen: Normal. No splenomegaly. Adrenal glands: Normal. No mass. Kidneys and ureters: Normal. No hydronephrosis. Stomach and bowel: Lobulated fluid collection along the greater curvature of the stomach with fine peripheral enhancement measures 8.6 cm in the transverse oblique dimension and likely represents a developing pseudocyst. Appendix: No evidence of appendicitis. Intraperitoneal space: There is a moderate amount of free intraperitoneal fluid in the abdomen/pelvis. Enhancement along the peritoneum is consistent with peritonitis. Vasculature: Unremarkable. No abdominal aortic aneurysm. Lymph nodes: Unremarkable. No enlarged lymph nodes. Urinary bladder: Unremarkable as visualized. Reproductive: Unremarkable as visualized. Bones/joints: Unremarkable. No acute fracture. Soft tissues: There is edema in the soft tissues. CT/CT abdomen pelvis w con* [id number] IMPRESSION: 1. Acute pancreatitis. Peripherally enhancing fluid collection along the greater curvature of the stomach likely represents a developing pseudocyst. 2. There is a moderate amount of free intraperitoneal fluid with enhancement along the peritoneum consistent with peritonitis. 3. There is consolidation at the lung bases, left greater than right. Differential includes atelectasis and or pneumonia. There is a small left pleural effusion.
--- NOTE | 2021-10-14 19:35 | ED_ITS ---
HPI - Abdominal Pain General: Chief Complaint: Abdominal Pain Stated Complaint: Pancretitus Time Seen by Provider: 10/14/21 19:29 Source: patient Mode of arrival: ambulatory Limitations: no limitations History of Present Illness: 25-year-old female who states she has history of pancreatitis from alcoholism. She was admitted here and discharged 3 days ago she states that since she has been discharged she has been having fevers and increasing pain states her pain is currently an 8 out of 10 she had some nausea and vomiting as well. She denies any worsening improving factors states the pain is mainly in her left upper quadrant. Associated Symptoms: Denies chills, dysuria and fever(s) Related Data: Date of Last Menstrual Period: 10/13/21 Review of Systems Const: Denies: fever(s), chills, body aches or change in appetite Eyes: Denies: blurry vision or eye discomfort ENMT: Denies: throat pain or dental pain Card: Denies: chest pain Resp: Denies: dyspnea GI: Reports: abdominal pain : Denies: dysuria Musc: Denies: neck pain or back pain Skin/Breast: Denies: rash Neuro: Denies: headache(s) Psych: Denies: depression Yo/Lymph: Denies: easy bruising All/Imm: Denies: urticaria PFSH ED PFSH: Medical History Acute pancreatitis Alcohol abuse Cholelithiasis 1 para 1 History of gestational diabetes Surgical History History of esophageal surgery Patient reports history of esophageal surgery as an . States surgery was performed right after and she does not know the details but has been told her esophagus came to a stop . She has a scar on her right back from where the surgery was performed. She has not had any difficulty or restrictions after having the surgery. Family History Grandfather Diabetes Maternal Hypertension Maternal Denies family history of CAD (coronary artery disease) Hyperlipidemia Pancreatitis Cancer Stroke Social History Smoking and tobacco status: current some day smoker cigarettes [ Other cigare tte details: when she drinks] Alcohol intake: current Alcohol intake frequency: few times a week Alcohol type: hard liquor Lives independently: Yes Household members: significant other and children Additional social history: -- Female Reproductive History: Date of last menstrual period: 10/13/21 Physical Exam Const: COMMON NORMALS: no acute distress, patient oriented x3 and healthy appearing HENMT: COMMON NORMALS: normocephalic and atraumatic HEAD & SCALP: normocephalic and atraumatic Eye: COMMON NORMALS: Equal, round and reactive pupils present and EOMs intact bilaterally PUPIL: Yes Equal, round and reactive pupils present Neck/C-Spine: COMMON NORMALS: full ROM and supple Chest: COMMONS NORMALS: normal inspection of the chest and normal palpation of entire chest wall Resp: COMMON NORMALS: normal respiratory effort, No retractions, No use of accessory muscles and clear to auscultation bilaterally AUSCULTATION: clear to auscultation bilaterally Cardio: COMMON NORMALS: regular rate, regular rhythm and No murmurs present (Cardio) RATE: regular rate RHYTHM: regular rhythm GI: COMMON NORMALS: Normal to inspection, nondistended, normoactive bowel sounds present, Soft to palpation and no masses PALPATION: Yes Soft to palpation and Yes Tenderness to palpation present (GI) Details: LUQ Extremity: COMMON NORMALS: normal to inspection and full ROM Neuro: COMMON NORMALS: patient oriented x3, moves all extremities and no focal motor deficits Psych: COMMON NORMALS: mental status grossly normal, Normal thought process present and cooperative THOUGHT PROCESS: Normal thought process present Skin: COMMON NORMALS: no rashes or lesions noted and no wounds GENERAL SKIN EXAM: no rashes or lesions noted Course Vital Signs: Vital signs: Vital Signs Temperature 99.9 F H 10/14/21 18:53 Pulse Rate 117 H 10/14/21 20:04 Respiratory Rate 17 10/14/21 21:03 Blood Pressure 140/88 10/14/21 20:04 Pulse Oximetry 98 10/14/21 21:03 MDM - Abdominal Pain Medical Decision Making Patient presents here with abdominal pain with pancreatitis with a developing pseudocyst. I spoke to surgeon on-call Dr. Franco who recommended patient be transferred for GI as she likely needs drainage of the pseudocyst I did speak to [facility] will transfer there patient has been stable while here. Lab Data : 10/14/21 20:00 10/14/21 20:00 Labs/Radiology: Radiology Impressions Abdomen/Pelvis CT 10/14/21 19:32 IMPRESSION: 1. Acute pancreatitis. Peripherally enhancing fluid collection along the greater curvature of the stomach likely represents a developing pseudocyst. 2. There is a moderate amount of free intraperitoneal fluid with enhancement along the peritoneum consistent with peritonitis. 3. There is consolidation at the lung bases, left greater than right. Differential includes atelectasis and or pneumonia. There is a small left pleural effusion. Gallbladder Ultrasound 10/14/21 20:48 IMPRESSION: 1. There is diffuse peripancreatic inflammatory stranding and fluid, consistent with acute pancreatitis. 2. Cholelithiasis. Shearing Machine Feeder measures the gallbladder wall as thickened at 5.5 mm. I believe this may be a result of some fat in the gallbladder fossa rather than a thickened gallbladder wall as the gallbladder wall did not appear thickened on the prior CT scan performed the same date. Laboratory Results WBC 17.5 10^3/uL (4.0-10.0) H 10/14/21 20:00 RBC 4.19 10^6/uL (4.1-5.3) 10/14/21 20:00 Hgb 12.1 g/dL (11.5-15.3) 10/14/21 20:00 Hct 36.4 % (37.0-47.0) L 10/14/21 20:00 MCV 86.9 fl (81-99) 10/14/21 20:00 MCH 28.9 pg (28.0-34.0) 10/14/21 20:00 MCHC 33.2 g/dL (30.0-36.0) 10/14/21 20:00 RDW 14.0 % (12.1-15.1) 10/14/21 20:00 Plt Count 404 10^3/cmm (130-400) H 10/14/21 20:00 MPV 10.4 fL (7.4-10.4) 10/14/21 20:00 Neut % (Auto) 76.7 % 10/14/21 20:00 Lymph % (Auto) 10.0 % 10/14/21 20:00 [place] % (Auto) 9.7 % 10/14/21 20:00 Eos % (Auto) 0.6 % 10/14/21 20:00 Baso % (Auto) 0.5 % 10/14/21 20:00 Neut # (Auto) 13.39 10^3/uL (1.8-7.7) H 10/14/21 20:00 Lymph # (Auto) 1.8 10^3/uL (0.8-4.8) 10/14/21 20:00 [place] # (Auto) 1.7 10^3/uL (0.2-0.9) H 10/14/21 20:00 Eos # (Auto) 0.1 10^3/uL (0.0-0.8) 10/14/21 20:00 Baso # (Auto) 0.1 10^3/uL (0.0-0.1) 10/14/21 20:00 Nucleated RBC % (auto) 0 % 10/14/21 20:00 Nucleated RBCs # 0.0 /100WBC 10/14/21 20:00 Sodium 135 mmol/L (136-145) L 10/14/21 20:00 Potassium 3.8 mmol/L (3.5-5.1) 10/14/21 20:00 Chloride 95 mmol/L (98-107) L 10/14/21 20:00 Carbon Dioxide 26 mmol/L (22-29) 10/14/21 20:00 Anion Gap 17.8 (5-19) 10/14/21 20:00 BUN 3 mg/dL (6-20) L 10/14/21 20:00 Creatinine 0.4 mg/dL (0.5-0.9) L 10/14/21 20:00 GFR Calculation 194.5 mL/min (90-130) H 10/14/21 20:00 Glucose 111 mg/dL (65-115) 10/14/21 20:00 Calculated Osmolality 277 mOsm/kg (285-295) L 10/14/21 20:00 Calcium 9.1 mg/dL (8.5-10.5) 10/14/21 20:00 Total Bilirubin 0.4 mg/dL (0.15-1.2) 10/14/21 20:00 AST 51 U/L (0-32) H 10/14/21 20:00 ALT 49 U/L (0-33) H 10/14/21 20:00 Alkaline Phosphatase 209 IU/L (35-105) H 10/14/21 20:00 Total Protein 7.1 g/dL (6.6-8.7) 10/14/21 20:00 Albumin 3.3 g/dL (3.5-5.2) L 10/14/21 20:00 Globulin 3.8 g/dL (1.3-4.6) 10/14/21 20:00 Lipase 77 U/L (13-60) H 10/14/21 20:00 HCG, Qual Negative (Negative) 10/14/21 20:22 Urine Color Yellow (Yellow) 10/14/21 20:10 Urine Appearance Clear (CLEAR) 10/14/21 20:10 Urine pH 9 (5-7) H 10/14/21 20:10 Ur Specific [place] 1.015 (1.005-1.030) 10/14/21 20:10 Urine Protein Neg (Negative) 10/14/21 20:10 Urine Glucose (UA) Norm (Normal) 10/14/21 20:10 Urine Ketones 2+ (Negative) H 10/14/21 20:10 Urine Blood 2+ (Negative) H 10/14/21 20:10 Urine Nitrate Negative (Negative) 10/14/21 20:10 Urine Bilirubin Neg (Negative) 10/14/21 20:10 Prot Sulfosalicylic Acd Negative (Negative) 10/14/21 20:10 Urine Urobilinogen Norm mg/dL (Negative) 10/14/21 20:10 Ur Leukocyte Esterase Negative (Negative) 10/14/21 20:10 Urine RBC 5-10 /hpf (0-2) H 10/14/21 20:10 Urine WBC 0-4 /hpf (0-5) H 10/14/21 20:10 Ur Squamous Epith Cells 10-15 /hpf (0-5) H 10/14/21 20:10 Amorphous Sediment Not Reportable 10/14/21 20:10 Urine Bacteria 1+ /hpf (NONE) H 10/14/21 20:10 Ethyl Alcohol < 10 mg/dL (0-10) 10/14/21 20:54 Discharge Plan Discharge Patient Disposition: Xfer Short-Term Hosp Clinical Impression: Pancreatic pseudocyst Pancreatitis Qualifiers: Chronicity: acute Pancreatitis type: alcohol induced Acute pancreatitis complication: unspecified Qualified Code(s): K85.20 - Alcohol induced acute pancreatitis without necrosis or infection Condition: Stable Referrals: Jo Wilkins PA [Primary Care Provider] - Coding Level of Care Code [employer] Consultant for Chg Fwd Exam Comprehensive
[2021-10-14 20:04] VITALS: BP 140/88; PULSE 117; RESP 18; O2SAT 94
[2021-10-14 20:15] LABS: Basophils # 0.1 10^3/uL (0.0-0.1); Basophils % 0.5 %; Eosinophils # 0.1 10^3/uL (0.0-0.8); Eosinophils % 0.6 %; Hematocrit 36.4 % (37.0-47.0); Hemoglobin 12.1 g/dL (11.5-15.3); Lymphocytes # 1.8 10^3/uL (0.8-4.8); Mean Corpuscular HGB Conc 33.2 g/dL (30.0-36.0); Mean Corpuscular Hemoglobin 28.9 pg (28.0-34.0); Mean Corpuscular Volume 86.9 fl (81-99); Mean Platelet Volume 10.4 fL (7.4-10.4); Monocytes # 1.7 10^3/uL (0.2-0.9); Monocytes % 9.7 %; Neutrophils # 13.39 10^3/uL (1.8-7.7); Neutrophils % 76.7 %; Nucleated Red Blood Cells % 0 %; Platelet Count 404 10^3/cmm (130-400); Red Blood Count 4.19 10^6/uL (4.1-5.3); White Blood Count 17.5 10^3/uL (4.0-10.0)
[2021-10-14 20:20] LABS: HCG Qualitative Urine. Negative (Negative)
[2021-10-14 20:33] LABS: Alanine Aminotransferase 49 U/L (0-33); Albumin Level 3.3 g/dL (3.5-5.2); Alkaline Phosphatase 209 IU/L (35-105); Blood Urea Nitrogen 3 mg/dL (6-20); Calcium 9.1 mg/dL (8.5-10.5); Carbon Dioxide 26 mmol/L (22-29); Chloride 95 mmol/L (98-107); Globulin 3.8 g/dL (1.3-4.6); Glomerular Filtration Rate 194.5 mL/min (90-130); Glucose 111 mg/dL (65-115); Lipase 77 U/L (13-60); Osmolality Calculated 277 mOsm/kg (285-295); Sodium 135 mmol/L (136-145); Total Bilirubin 0.4 mg/dL (0.15-1.2); Total Protein 7.1 g/dL (6.6-8.7)
[2021-10-14 20:35] LABS: Add Urine Microscopic? YES; Bilirubin Urine Neg (Negative); Blood Urine 2+ (Negative); Glucose Urine UA Norm (Normal); Ketones Urine 2+ (Negative); Leukocyte Esterase Urine Negative (Negative); Nitrate Urine Negative (Negative); Protein Urine Neg (Negative); Specific Gravity, Urine 1.015 (1.005-1.030); Sulfosalicylic Acid Urine Negative (Negative); Urine Appearance Clear (CLEAR); Urine Color Yellow (Yellow); Urobilinogen Urine Norm (Negative); pH Urine 9 (5-7)
[2021-10-14 20:37] LABS: Add Urine Culture? No; Bacteria Urine 1+ /hpf; WBC Urine 0-4 /hpf (0-5)
[2021-10-14 20:39] LABS: Anion Gap 17.8 (5-19); Potassium 3.8 mmol/L (3.5-5.1)
[2021-10-14 20:40] LABS: Aspartate Amino Transferase 51 U/L (0-32)
[2021-10-14 20:48] LABS: HCG, Serum Qual Negative (Negative)
--- NOTE | 2021-10-14 20:48 | USR_ITS ---
PROCEDURE INFORMATION: Exam: US Abdomen, Limited; Right Upper Quadrant Exam date and time: 10/14/2021 8:48 PM Age: 25 years old Clinical indication: Abdominal pain; Epigastric; TECHNIQUE: Imaging protocol: US abdomen. Real time ultrasound with image documentation. Limited exam focused on the right upper quadrant. COMPARISON: US gall bladder [id number] 10/09/2021 10:21 AM FINDINGS: Liver: Normal. No masses. Gallbladder: Cholelithiasis. Hi Teacher measures the gallbladder wall as thickened at 5.5 mm. I believe this may be a result of some fat in the gallbladder fossa rather than a thickened gallbladder wall as the gallbladder wall did not appear thickened on the prior CT scan performed the same date. Common bile duct: Common bile duct is normal in caliber measuring 3 mm. Pancreas: There is diffuse peripancreatic inflammatory stranding and fluid, consistent with acute pancreatitis. Right kidney: Right kidney measures 11.5 x 4.6 x 5.0 cm. US/US gall bladder [id number] IMPRESSION: 1. There is diffuse peripancreatic inflammatory stranding and fluid, consistent with acute pancreatitis. 2. Cholelithiasis. Hi Teacher measures the gallbladder wall as thickened at 5.5 mm. I believe this may be a result of some fat in the gallbladder fossa rather than a thickened gallbladder wall as the gallbladder wall did not appear thickened on the prior CT scan performed the same date.
[2021-10-14] MEDS: acetaminophen 500 mg Tablet 1000 MG PO (21:01)
[2021-10-14] MEDS: ondansetron 2 mg/ML SDV 2 mL 4 MG IVP (21:02)
[2021-10-14 21:03] VITALS: RESP 17; O2SAT 98
[2021-10-14] MEDS: HYDROmorphone 1 mg/mL INJ 1 mL IVP (21:03)
[2021-10-14] MEDS: iohexol 300 mg/mL 100 mL Btl IV (21:15)
[2021-10-14 21:40] LABS: Alcohol Level < 10 mg/dL (0-10)
[2021-10-14 23:06] LABS: Lactate (Lactic Acid level) 1.1 mmol/L (0.5-2.2)
[2021-10-14] MEDS: piperacillin-tazobactam 3.375 GM in sodium chloride 0.9% (plus) 50 ML IV (23:53)
[2021-10-15 00:16] VITALS: RESP 16; O2SAT 96
[2021-10-15] MEDS: HYDROmorphone 1 mg/mL INJ 1 mL IVP (00:16)
[2021-10-15 00:18] VITALS: BP 133/78; PULSE 114; RESP 16; O2SAT 97
== END 2021-10-15 00:21 | disposition short-term general hospital (02) ==
PROVIDERS: Emergency Medicine; Emergency Provider Emergency Medicine; PCP Physician Assistant
DX: K85.20 Alcohol induced acute pancreatitis without necrosis or infection (principal); K86.3 Pseudocyst of pancreas; F17.210 Nicotine dependence, cigarettes, uncomplicated
CPT/HCPCS: 74177; 76705; 80053; 80307; 81001; 81025; 83605; 83690; 84703; 85025; 87040; 96365; 96375; 96376; 99285; J1170; J2405; J2543; Q9967

== ENCOUNTER 2022-01-05 17:23 | Emergency (ER) | payer BC, MEDICAID, SELFPAY ==
[2022-01-05 18:04] VITALS: BP 146/88; PULSE 98; RESP 18; TEMP 36.9; O2SAT 99; BMI 30.1
[2022-01-05] MEDS: ondansetron 2 mg/ML SDV 2 mL 4 MG IVP ×3 (18:55→22:54)
[2022-01-05 18:57] VITALS: RESP 18
[2022-01-05] MEDS: HYDROmorphone 1 mg/mL INJ 1 mL IVP ×3 (18:57→22:54)
[2022-01-05 19:11] LABS: Basophils % 0.1 %; Hematocrit 44.4 % (37.0-47.0); Hemoglobin 14.5 g/dL (11.5-15.3); Lymphocytes # 1.9 10^3/uL (0.8-4.8); Lymphocytes % 15.5 %; Mean Corpuscular HGB Conc 32.7 g/dL (30.0-36.0); Mean Corpuscular Hemoglobin 26.3 pg (28.0-34.0); Mean Corpuscular Volume 80.6 fl (81-99); Mean Platelet Volume 11.2 fL (7.4-10.4); Monocytes # 0.5 10^3/uL (0.2-0.9); Monocytes % 3.9 %; Neutrophils # 9.58 10^3/uL (1.8-7.7); Neutrophils % 80.2 %; Nucleated Red Blood Cells % 0 %; Platelet Count 377 10^3/cmm (130-400); Red Blood Count 5.51 10^6/uL (4.1-5.3); Red Cell Distribution Width 14.4 % (12.1-15.1)
--- NOTE | 2022-01-05 19:39 | CTR_ITS ---
PROCEDURE INFORMATION: Exam: CT Abdomen And Pelvis Without Contrast Exam date and time: 01/05/2022 8:30 PM Age: 26 years old Clinical indication: Abdominal pain; Prior surgery; Surgery date: 1-6 months; Surgery type: Biliary/pancreatic stent 6 weeks ago. Esophageal surgery as an infant; Patient HX: C/O epigastric pain. History of pancreatitis. ; Additional info: Epigastric and back pain TECHNIQUE: Imaging protocol: Computed tomography of the abdomen and pelvis without contrast. Radiation optimization: All CT scans at this facility use at least one of these dose optimization techniques: automated exposure control; mA and/or kV adjustment per patient size (includes targeted exams where dose is matched to clinical indication); or iterative reconstruction. COMPARISON: CT abdomen pelvis w con* [id number] 10/14/2021 9:17 PM RADIATION DOSE METRICS: Total DLP (mGy-cm): 1464.23 FINDINGS: Tubes, catheters and devices: Interval placement of choledocoduodenal stent. Interval placement of pancreaticoduodenal stent. Liver: Normal. No mass. Gallbladder and bile ducts: Pneumobilia which can be normal following choledocoduodenal stent placement. Pancreas: See Kidneys and ureters finding. Spleen: Normal. No splenomegaly. Adrenal glands: Normal. No mass. Kidneys and ureters: Radiographic resolution of moderate to severe pancreatitis except for large residual 9.4 x 6.5 x 5.6 cm pseudocyst or other complex fluid collection extending inferiorly from the tail the pancreas between the left colon and left kidney. Stomach and bowel: See Kidneys and ureters finding. Appendix: Normal appendix. Intraperitoneal space: Unremarkable. No free air. No significant fluid collection. Vasculature: Unremarkable. No abdominal aortic aneurysm. Lymph nodes: Unremarkable. No enlarged lymph nodes. Urinary bladder: Unremarkable as visualized. Reproductive: 3.2 cm right ovarian cyst. Bones/joints: Unremarkable. No acute fracture. Soft tissues: Unremarkable. CT/CT abdomen pelvis wo con [id number] IMPRESSION: 1. Radiographic resolution of moderate to severe pancreatitis except for interval appearance of large residual 9.4 x 6.5 x 5.6 cm pseudocyst or other complex fluid collection extending inferiorly from the tail the pancreas between the left colon and left kidney. 2. Interval placement of choledocoduodenal stent. 3. Interval placement of pancreaticoduodenal stent. 4. Pneumobilia which can be normal following choledocoduodenal stent placement. 5. 3.2 cm right ovarian cyst.
[2022-01-05 19:59] LABS: Alanine Aminotransferase 17 U/L (0-33); Albumin Level 4.6 g/dL (3.5-5.2); Alkaline Phosphatase 65 IU/L (35-105); Aspartate Amino Transferase 13 U/L (0-32); Blood Urea Nitrogen 4 mg/dL (6-20); C Reactive Protein 4.5 mg/L (0.0-4.9); Calcium 9.7 mg/dL (8.5-10.5); Carbon Dioxide 22 mmol/L (22-29); Chloride 98 mmol/L (98-107); Globulin 3.2 g/dL (1.3-4.6); Glomerular Filtration Rate 149.1 mL/min (90-130); Glucose 113 mg/dL (65-115); Osmolality Calculated 274 mOsm/kg (285-295); Sodium 133 mmol/L (136-145); Total Bilirubin 0.3 mg/dL (0.15-1.2); Total Protein 7.8 g/dL (6.6-8.7)
[2022-01-05 20:00] LABS: Triglycerides 61 mg/dL (0-150)
[2022-01-05 20:08] LABS: Add Urine Microscopic? NO; Charge for UA Resulting for Rev
[2022-01-05 20:16] LABS: Bilirubin Urine Neg (Negative); Blood Urine Neg (Negative); Glucose Urine UA Norm (Normal); INR 1.04 (0.8-1.2); Ketones Urine 3+ (Negative); Leukocyte Esterase Urine Negative (Negative); Nitrate Urine Negative (Negative); Protein Urine Neg (Negative); Specific Gravity, Urine 1.025 (1.005-1.030); Urine Appearance Turbid (CLEAR); Urine Color Yellow (Yellow); Urobilinogen Urine Norm (Negative); pH Urine 5 (5-7)
[2022-01-05 20:24] LABS: HCG, Serum Qual Negative (Negative)
[2022-01-05 20:37] VITALS: BP 159/88; PULSE 62; RESP 18; O2SAT 95
--- NOTE | 2022-01-05 20:45 | W.ED.BACK ---
HPI - Back Pain/Injury General: Chief Complaint: Back Pain/Injury Stated Complaint: Says she has pancretitis, in alot of pain in back Time Seen by Provider: 01/05/22 18:32 History of Present Illness: 26-year-old female with somewhat of a complicated history of pancreatitis, with biliary stent placement, prolonged course with feeding tube insertion, etc. she had her feeding tube removed 2 weeks ago, she was doing well. She presents with mid back pain radiating into her epigastrium. Started last night, and is progressed in pain today. She denies fever. She has vomited once today. She is quite nauseated. No diarrhea. No other belly surgeries. MD elicited complaint: back pain Pertinent past history: other Onset (ago): hour(s) Timing: constant and progressively worsening Severity: moderate Location: thoracic spine Radiation: abdomen Exacerbating factors: none Relieving factors: none Associated symptoms: Reports abdominal pain, chills, nausea and vomiting; Deny change in bowel habits, dysuria, fecal incontinence, fever(s), tingling/numbness/burning or urinary frequency Review of Systems Const: Reports: chills; Denies: fever(s) ENMT: Denies: throat pain Card: Denies: chest pain Resp: Denies: dyspnea GI: Reports: abdominal pain, nausea and vomiting; Denies: fecal incontinence or change in bowel habits : Denies: dysuria Musc: Reports: back pain Skin/Breast: Denies: rash PFSH ED PFSH: Medical History Acute pancreatitis Alcohol abuse Cholelithiasis 1 para 1 History of gestational diabetes Surgical History History of esophageal surgery Patient reports history of esophageal surgery as an . States surgery was performed right after and she does not know the details but has been told her esophagus came to a stop . She has a scar on her right back from where the surgery was performed. She has not had any difficulty or restrictions after having the surgery. Family History Grandfather Diabetes Maternal Hypertension Maternal Denies family history of CAD (coronary artery disease) Hyperlipidemia Pancreatitis Cancer Stroke Social History (Reviewed 01/05/22 @ 20:51 by CARLENE Cohen Smoking and tobacco status: current some day smoker cigarettes [ Other cigarette details: when she drinks] Alcohol intake: current Alcohol intake frequency: few times a week Alcohol type: hard liquor Lives independently: Yes Household members: significant other and children Additional social history: -- Female Reproductive History: Date of last menstrual period: 10/13/21 Physical Exam Const: GENERAL APPEARANCE: cooperative, well developed, in distress and ill appearing HENMT: COMMON NORMALS: normocephalic, atraumatic and Normal external nose present HEAD & SCALP: normocephalic and atraumatic NOSE: Normal external nose present Eye: COMMON NORMALS: Equal, round and reactive pupils present and conjunctivae normal CONJUNCTIVA: Yes conjunctivae normal PUPIL: Yes Equal, round and reactive pupils present Chest: CHEST: Yes Symmetrical chest wall rise Resp: COMMON NORMALS: normal respiratory effort, No use of accessory muscles and clear to auscultation bilaterally AUSCULTATION: clear to auscultation bilaterally Cardio: COMMON NORMALS: regular rate and regular rhythm RATE: regular rate RHYTHM: regular rhythm GI: COMMON NORMALS: Normal to inspection, nondistended, normoactive bowel sounds present and Soft to palpation PALPATION: Yes Soft to palpation and Yes Tenderness to palpation present (GI) (epigastric) Extremity: COMMON NORMALS: normal to inspection Course Vital Signs: Vital signs: Vital Signs Temperature 98.4 F 01/05/22 18:04 Pulse Rate 64 01/05/22 23:25 Respiratory Rate 16 01/05/22 23:25 Blood Pressure 140/84 01/05/22 23:25 Pulse Oximetry 99 01/05/22 23:25 MDM - Back Pain/Injury Medical Decision Making 26-year-old female with a history of pancreatitis. She presents with epigastric pain and back pain. She is afebrile. Her vitals are stable. She is mildly hypertensive, blood pressure 150/96. White blood cell count is 12. Her CRP is only 4. Her BMP is essentially normal. Lipase is 13. Liver enzymes are normal. Urinalysis shows 3+ ketones, is otherwise negative. CT of the abdomen pelvis is completed, showing no changes that would be consistent with pancreatitis. No cholecystitis. Stents are in place. Residual pancreatic pseudocyst is present. She has not vomited here. Her pain is more controlled now. She has tolerated some fluid orally. She will be allowed home with pain medication, antiemetic, and outpatient follow-up. Labs : 01/05/22 18:48 01/05/22 19:34 Radiology Impressions Abdomen/Pelvis CT 01/05/22 19:39 IMPRESSION: 1. Radiographic resolution of moderate to severe pancreatitis except for interval appearance of large residual 9.4 x 6.5 x 5.6 cm pseudocyst or other complex fluid collection extending inferiorly from the tail the pancreas between the left colon and left kidney. 2. Interval placement of choledocoduodenal stent. 3. Interval placement of pancreaticoduodenal stent. 4. Pneumobilia which can be normal following choledocoduodenal stent placement. 5. 3.2 cm right ovarian cyst. Laboratory Results WBC 12.0 10^3/uL (4.0-10.0) H 01/05/22 18:48 RBC 5.51 10^6/uL (4.1-5.3) H 01/05/22 18:48 Hgb 14.5 g/dL (11.5-15.3) 01/05/22 18:48 Hct 44.4 % (37.0-47.0) 01/05/22 18:48 MCV 80.6 fl (81-99) L 01/05/22 18:48 MCH 26.3 pg (28.0-34.0) L 01/05/22 18:48 MCHC 32.7 g/dL (30.0-36.0) 01/05/22 18:48 RDW 14.4 % (12.1-15.1) 01/05/22 18:48 Plt Count 377 10^3/cmm (130-400) 01/05/22 18:48 MPV 11.2 fL (7.4-10.4) H 01/05/22 18:48 Neut % (Auto) 80.2 % 01/05/22 18:48 Lymph % (Auto) 15.5 % 01/05/22 18:48 [place] % (Auto) 3.9 % 01/05/22 18:48 Eos % (Auto) 0.0 % 01/05/22 18:48 Baso % (Auto) 0.1 % 01/05/22 18:48 Neut # (Auto) 9.58 10^3/uL (1.8-7.7) H 01/05/22 18:48 Lymph # (Auto) 1.9 10^3/uL (0.8-4.8) 01/05/22 18:48 [place] # (Auto) 0.5 10^3/uL (0.2-0.9) 01/05/22 18:48 Eos # (Auto) 0.0 10^3/uL (0.0-0.8) 01/05/22 18:48 Baso # (Auto) 0.0 10^3/uL (0.0-0.1) 01/05/22 18:48 Nucleated RBC % (auto) 0 % 01/05/22 18:48 Nucleated RBCs # 0.0 /100WBC 01/05/22 18:48 PT 13.90 SECONDS (12.1-14.9) 01/05/22 19:58 INR 1.04 (0.8-1.2) 01/05/22 19:58 Sodium 133 mmol/L (136-145) L 01/05/22 19:34 Potassium 4.0 mmol/L (3.5-5.1) 01/05/22 19:34 Chloride 98 mmol/L (98-107) 01/05/22 19:34 Carbon Dioxide 22 mmol/L (22-29) 01/05/22 19:34 Anion Gap 17.0 (5-19) 01/05/22 19:34 BUN 4 mg/dL (6-20) L 01/05/22 19:34 Creatinine 0.5 mg/dL (0.5-0.9) 01/05/22 19:34 GFR Calculation 149.1 mL/min (90-130) H 01/05/22 19:34 Glucose 113 mg/dL (65-115) 01/05/22 19:34 Calculated Osmolality 274 mOsm/kg (285-295) L 01/05/22 19:34 Calcium 9.7 mg/dL (8.5-10.5) 01/05/22 19:34 Total Bilirubin 0.3 mg/dL (0.15-1.2) 01/05/22 19:34 AST 13 U/L (0-32) 01/05/22 19:34 ALT 17 U/L (0-33) 01/05/22 19:34 Alkaline Phosphatase 65 IU/L (35-105) 01/05/22 19:34 C-Reactive Protein 4.5 mg/L (0.0-4.9) 01/05/22 19:34 Total Protein 7.8 g/dL (6.6-8.7) 01/05/22 19:34 Albumin 4.6 g/dL (3.5-5.2) 01/05/22 19:34 Globulin 3.2 g/dL (1.3-4.6) 01/05/22 19:34 Triglycerides 61 mg/dL (0-150) 01/05/22 19:34 Triglycerides Cancelled 01/05/22 19:34 Cholesterol Cancelled 01/05/22 19:34 LDL Cholesterol, Calc Cancelled 01/05/22 19:34 HDL Cholesterol Cancelled 01/05/22 19:34 LDL/HDL Ratio Cancelled 01/05/22 19:34 Cholesterol/HDL Ratio Cancelled 01/05/22 19:34 Lipase 13 U/L (13-60) 01/05/22 19:34 HCG, Qual Negative (Negative) 01/05/22 19:58 Urine Color Yellow (Yellow) 01/05/22 19:58 Urine Appearance Turbid (CLEAR) 01/05/22 19:58 Urine pH 5 (5-7) 01/05/22 19:58 Ur Specific [place] 1.025 (1.005-1.030) 01/05/22 19:58 Urine Protein Neg (Negative) 01/05/22 19:58 Urine Glucose (UA) Norm (Normal) 01/05/22 19:58 Urine Ketones 3+ (Negative) H 01/05/22 19:58 Urine Blood Neg (Negative) 01/05/22 19:58 Urine Nitrate Negative (Negative) 01/05/22 19:58 Urine Bilirubin Neg (Negative) 01/05/22 19:58 Urine Urobilinogen Norm mg/dL (Negative) 01/05/22 19:58 Ur Leukocyte Esterase Negative (Negative) 01/05/22 19:58 Discharge Plan Discharge Patient Disposition: Home Clinical Impression: Acute epigastric pain, Cyst and pseudocyst of pancreas Condition: Stable Prescriptions: New ondansetron 4 mg film 4 mg PO DAILY PRN (Reason: nausea and vomiting) Qty: 10 0RF Continued Percocet 5-325 mg tablet 1 tab PO Q8H Qty: 10 0RF Discontinued ondansetron HCl [Zofran] 4 mg tablet 4 mg PO Q6H PRN (Reason: nausea and vomiting) Qty: 10 0RF No Action Aleve 220 mg Tablet 220 mg PO BID PRN (Reason: Pain) 0RF Vitamin B-1 (mononitrate) 100 mg Tablet 100 mg PO DAILY 30 Days Qty: 30 1RF Discharge Orders: Discharge ED (Routine); Ordered 01/05/22 Ordered By: Kamlesh Baker Referrals: Jo Wilkins PA [Primary Care Provider] - 4-7 days Patient Instructions: Abdominal Pain (ED), Opioid Safety Activity Restrictions/Additional Instructions: Return for fever greater than 100, vomiting liquids or medications despite treatment, worsening pain despite treatment, passage of blood in the vomitus or stool, any other concerning symptoms. Coding Level of Care Code ED Merchandise Presentation Manager for Trisha Fwd Exam Comprehensive
[2022-01-05 21:32] LABS: Lipase 13 U/L (13-60)
[2022-01-05] MEDS: sodium chloride 0.9% 1,000 ML 999 ML IV (21:54)
[2022-01-05 22:17] VITALS: BP 160/97; PULSE 62; RESP 16; O2SAT 97
[2022-01-05 23:25] VITALS: BP 140/84; PULSE 64; RESP 16; O2SAT 99
[2022-01-05] MEDS: oxyCODONE-APAP 5-325 mg Tablet 2 TAB PO (23:25)
== END 2022-01-05 23:27 | disposition home or self-care (01) ==
PROVIDERS: Emergency Medicine; Emergency Provider Emergency Medicine; PCP Physician Assistant
DX: K86.3 Pseudocyst of pancreas (principal); R10.13 Epigastric pain; K85.90 Acute pancreatitis without necrosis or infection, unspecified
CPT/HCPCS: 74176; 80053; 81003; 83690; 84478; 84703; 85025; 85610; 86140; 96361; 96374; 96375; 96376; 99284; J1170; J2405; J7030

== ENCOUNTER 2024-07-04 16:51 | Emergency (ER) | payer BC, MEDICAID, SELFPAY ==
[2024-07-04 17:11] VITALS: BP 111/75; PULSE 90; RESP 16; TEMP 36.7; O2SAT 99
--- NOTE | 2024-07-04 17:41 | USR_ITS ---
PROCEDURE INFORMATION: Exam: US , Limited Exam date and time: 07/04/2024 6:17 PM Age: 28 years old Clinical indication: Lmp or gestational age (in weeks): 14w5d; Antepartum complications; Bleeding; ; Additional info: Approximately 14 weeks. Vaginal bleeding. LABS AND CLINICAL REPORTS: Gestational age (Established): 14 w 5 d Estimated due date (Established): 12/28/2024 TECHNIQUE: Imaging protocol: Real-time ultrasound of the maternal uterus with image documentation. Exam focused on the clinical indication. COMPARISON: US OB lmt w/ BPP wo NST 12/14/2019 9:55 AM FINDINGS: Gestation: Live intrauterine gestation. heart rate: 159 bpm Placenta: Posterior placenta. Placenta previa. MATERNAL: Cervix: Cervical length measures 3.1 cm. US/US OB limited [id number] IMPRESSION: Live intrauterine gestation. Placenta previa.
[2024-07-04 18:18] LABS: Bilirubin Urine Negative (Negative); Blood Urine Negative (Negative); Glucose Urine UA Negative (Normal); Ketones Urine Negative (Negative); Leukocyte Esterase Urine 2+ (Negative); Nitrate Urine Negative (Negative); Protein Urine Negative (Negative); Specific Gravity, Urine 1.024 (1.005-1.030); Urine Appearance Cloudy (CLEAR); Urine Color Yellow (Yellow)
[2024-07-04 18:22] LABS: Bacteria Urine 4+ /hpf; Hyaline Casts Urine 2.46 /lpf; Universal Test for UA Present (0); WBC Urine 51-100 /hpf (0-5)
[2024-07-04 18:34] LABS: Basophils % 0.2 %; Eosinophils # 0.1 10^3/uL (0.0-0.8); Eosinophils % 0.5 %; Hematocrit 32.8 % (36-47); Lymphocytes # 2.7 10^3/uL (0.8-4.8); Lymphocytes % 29.1 %; Mean Corpuscular HGB Conc 33.2 g/dL (30-55); Mean Corpuscular Hemoglobin 29.5 pg (27-33); Mean Corpuscular Volume 88.6 fl (85-98); Mean Platelet Volume 10.2 fL (7.4-10.4); Monocytes # 0.6 10^3/uL (0.2-0.9); Monocytes % 6.8 %; Neutrophils # 5.76 10^3/uL (1.8-7.7); Neutrophils % 63.1 %; Nucleated Red Blood Cells % 0 %; Platelet Count 254 10^3/cmm (157-399); White Blood Count 9.14 10^3/uL (3.29-11.43)
--- NOTE | 2024-07-04 18:40 | W.ED.FEMALGU ---
HPI - Female Genitourinary General: Chief complaint: Vaginal Bleeding Stated complaint: 15 wk preg vaginal bleeding Time Seen by Provider: 07/04/24 18:07 History of Present Illness: 28-year-old female who is a G1, P0. She believes she is about 15 weeks. She presents with a small amount of bright red vaginal bleeding on her tissue when urinating today. She has had minimal to no pain. No other vaginal discharge. No fever. No problems prior. She did have an ultrasound confirming intrauterine a few weeks ago she says. No problems with her prior . Associated symptoms: Deny vaginal bleeding Related Data Home Medications Medication Instructions Recorded Confirmed naproxen sodium 220 mg tablet 220 mg PO BID PRN Pain 10/09/21 10/09/21 (Aleve) Previous Rx's Medication Instructions Recorded thiamine mononitrate (vit B1) 100 100 mg PO DAILY 30 days #30 tabs 10/12/21 mg tablet (Vitamin B-1 (mononitrate)) ondansetron 4 mg oral soluble film 4 mg PO DAILY PRN nausea and 01/05/22 vomiting #10 ea oxycodone-acetaminophen 5 mg-325 1 tab PO Q8H #10 tabs 01/05/22 mg tablet (Percocet) cefdinir 300 mg capsule 300 mg PO BID #14 caps 07/04/24 Allergies Allergy/AdvReac Type Severity Reaction Status Date / Time Sulfa (Sulfonamide AdvReac Mild possible Verified 07/04/24 17:15 Antibiotics) reaction as a child PFS ED PFSH: Medical History Cholelithiasis 1 para 1 Alcohol abuse Acute pancreatitis History of gestational diabetes Surgical History History of esophageal surgery Patient reports history of esophageal surgery as an . States surgery was performed right after and she does not know the details but has been told her esophagus came to a stop . She has a scar on her right back from where the surgery was performed. She has not had any difficulty or restrictions after having the surgery. Family History Grandfather Diabetes Maternal Hypertension Maternal Denies family history of CAD (coronary artery disease) Hyperlipidemia Pancreatitis Cancer Stroke Social History Smoking and tobacco/nicotine status: current some day tobacco/nicotine user cigarettes [ Other cigarette details: when she drinks] Alcohol intake: current Alcohol intake frequency: few times a week Alcohol type: hard liquor Substance/Drug Use: never Additional social history: -- Lives independently: Yes Household members: significant other and children Physical Exam Const: COMMON NORMALS: no acute distress GENERAL APPEARANCE: cooperative; not ill appearing and not frail appearing HENMT: COMMON NORMALS: normocephalic, atraumatic and Normal external nose present HEAD & SCALP: normocephalic and atraumatic FACE & SINUS: normal facial exam and face symmetric NOSE: Normal external nose present Eye: COMMON NORMALS: Equal, round and reactive pupils present and EOMs intact bilaterally PUPIL: Yes Equal, round and reactive pupils present Neck/C-Spine: GENERAL: Yes trachea midline Chest: CHEST: Yes Symmetrical chest wall rise Resp: COMMON NORMALS: normal respiratory effort, No retractions, No use of accessory muscles and clear to auscultation bilaterally AUSCULTATION: clear to auscultation bilaterally Cardio: COMMON NORMALS: regular rate and regular rhythm RATE: regular rate RHYTHM: regular rhythm GI: COMMON NORMALS: Normal to inspection, nondistended, normoactive bowel sounds present : SPECULUM EXAM - VAGINA: No vaginal bleeding, No swelling and No Vaginal discharge present SPECULUM EXAM - CERVIX: Yes Cervical os closed, No Cervical bleeding and No watery cervix OB/EXTERNAL & SPECULUM: No vaginal bleeding Extremity: COMMON NORMALS: no pedal edema Neuro: KUMAR COMA SCALE: document GCS findings [place] coma scale eye opening: Spontaneous Kumar coma scale verbal response: Orientated [place] coma scale motor response: Obey commands Kumar coma scale total score: 15 SENSORY EXAM: Yes extremities (intact) Psych: COMMON NORMALS: speech normal SPEECH: Yes normal speech Skin: COMMON NORMALS: no rashes or lesions noted GENERAL SKIN EXAM: no rashes or lesions noted Course Vital Signs: Vital signs: Vital Signs Temperature 98.1 F 07/04/24 17:11 Pulse Rate 75 07/04/24 19:35 Respiratory Rate 18 07/04/24 19:35 Blood Pressure 114/76 07/04/24 19:35 Pulse Oximetry 97 07/04/24 19:35 MDM - Female Medical Decision Making Hemoglobin is 11. White blood cell count is 9. Her urinalysis is pending. Ultrasound shows an intrauterine , heart tones 158, close cervix. No subchorionic hemorrhage. Placenta is low-lying, and posterior, which is not uncommon for 14-week measuring . Urinalysis does show 51-100 white with 2+ leukocyte esterase. She was discharged prior to urine resulting. Patient was called, cefdinir was sent to her pharmacy to start as soon as possible. She understands. Lab Data 07/04/24 18:22 07/04/24 18:22 Radiology Impressions Obstetrics Ultrasound 07/04/24 17:41 IMPRESSION: Live intrauterine gestation. Placenta previa. Laboratory Results WBC 9.14 10^3/uL (3.29-11.43) 07/04/24 18: RBC 3.70 10^6/uL (3.85-5.65) L 07/04/24 18:22 Hgb 10.90 g/dL (11.27-16.99) L 07/04/24 18:22 Hct 32.8 % (36-47) L 07/04/24 18:22 MCV 88.6 fl (85-98) 07/04/24 18:22 MCH 29.5 pg (27-33) 07/04/24 18: MCHC 33.2 g/dL (30-55) 07/04/24 18: RDW 13.0 % (12.1-15.1) 07/04/24 18:22 Plt Count 254 10^3/cmm (157-399) 07/04/24 18: MPV 10.2 fL (7.4-10.4) 07/04/24 18:22 Neut % (Auto) 63.1 % 07/04/24 18:22 Lymph % (Auto) 29.1 % 07/04/24 18:22 [place] % (Auto) 6.8 % 07/04/24 18: Eos % (Auto) 0.5 % 07/04/24 18:22 Baso % (Auto) 0.2 % 07/04/24 18:22 Neut # (Auto) 5.76 10^3/uL (1.8-7.7) 07/04/24 18:22 Lymph # (Auto) 2.7 10^3/uL (0.8-4.8) 07/04/24 18:22 [place] # (Auto) 0.6 10^3/uL (0.2-0.9) 07/04/24 18:22 Eos # (Auto) 0.1 10^3/uL (0.0-0.8) 07/04/24 18:22 Baso # (Auto) 0.0 10^3/uL (0.0-0.1) 07/04/24 18:22 Nucleated RBC % (auto) 0 % 07/04/24 18:22 Nucleated RBCs # 0.0 /100WBC 07/04/24 18:22 Sodium 135 mmol/L (136-145) L 07/04/24 18:22 Potassium 3.8 mmol/L (3.5-5.1) 07/04/24 18:22 Chloride 104 mmol/L (98-107) 07/04/24 18:22 Carbon Dioxide 22 mmol/L (22-29) 07/04/24 18:22 Anion Gap 12.8 (5-19) 07/04/24 18:22 BUN 11 mg/dL (6-20) 07/04/24 18:22 Creatinine 0.4 mg/dL (0.5-0.9) L 07/04/24 18:22 GFR Calculation 190.1 mL/min (90-130) H 07/04/24 18:22 Glucose 76 mg/dL (65-115) 07/04/24 18:22 Calculated Osmolality 278 mOsm/kg (285-295) L 07/04/24 18:22 Calcium 8.3 mg/dL (8.5-10.5) L 07/04/24 18:22 Total Bilirubin 0.2 mg/dL (0.15-1.2) 07/04/24 18:22 AST 8 U/L (0-32) 07/04/24 18:22 ALT 9 U/L (0-33) 07/04/24 18:22 Alkaline Phosphatase 30 U/L (35-105) L 07/04/24 18:22 Total Protein 5.4 g/dL (6.6-8.7) L 07/04/24 18:22 Albumin 3.5 g/dL (3.5-5.2) 07/04/24 18:22 Globulin 1.9 g/dL (1.3-4.6) 07/04/24 18:22 Ser , Semi-Qnt 00718.00 mIU/mL 07/04/24 18:22 Urine Color Cancelled 07/04/24 17:20 Urine Color Yellow (Yellow) 07/04/24 17:20 Urine Appearance Cancelled 07/04/24 17:20 Urine Appearance Cloudy (CLEAR) A 07/04/24 17:20 Urine pH 6.0 (5-7) 07/04/24 17:20 Urine pH Cancelled 07/04/24 17:20 Ur Specific [place] 1.024 (1.005-1.030) 07/04/24 17:20 Ur Specific [place] Cancelled 07/04/24 17:20 Urine Protein Cancelled 07/04/24 17:20 Urine Protein Negative (Negative) 07/04/24 17:20 Urine Glucose (UA) Cancelled 07/04/24 17:20 Urine Glucose (UA) Negative (Normal) 07/04/24 17:20 Urine Ketones Cancelled 07/04/24 17:20 Urine Ketones Negative (Negative) 07/04/24 17:20 Urine Blood Cancelled 07/04/24 17:20 Urine Blood Negative (Negative) 07/04/24 17:20 Urine Nitrate Cancelled 07/04/24 17:20 Urine Nitrate Negative (Negative) 07/04/24 17:20 Urine Bilirubin Cancelled 07/04/24 17:20 Urine Bilirubin Negative (Negative) 07/04/24 17:20 Prot Sulfosalicylic Acd Cancelled 07/04/24 17:20 Urine Urobilinogen 1.0 mg/dL (Negative) 07/04/24 17:20 Urine Urobilinogen Cancelled 07/04/24 17:20 Ur Leukocyte Esterase 2+ (Negative) A 07/04/24 17:20 Ur Leukocyte Esterase Cancelled 07/04/24 17:20 Urine RBC 3-5 /hpf (0-2) 07/04/24 17:20 Urine RBC Cancelled 07/04/24 17:20 Urine WBC 51-100 /hpf (0-5) H 07/04/24 17:20 Urine WBC Cancelled 07/04/24 17:20 Ur Squamous Epith Cells 10-15 /hpf (0-5) H 07/04/24 17:20 Ur Squamous Epith Cells Cancelled 07/04/24 17:20 Ur Transition Epith Cell Cancelled 07/04/24 17:20 Ur Renal Epithelial Cell Cancelled 07/04/24 17:20 Calcium Oxalate Crystal Cancelled 07/04/24 17:20 Uric Acid Crystals Cancelled 07/04/24 17:20 Triple Phos Crystals Cancelled 07/04/24 17:20 Other Crystals Cancelled 07/04/24 17:20 Amorphous Sediment Cancelled 07/04/24 17:20 Amorphous Sediment Not Reportable 07/04/24 17:20 Urine Bacteria 4+ /hpf (NONE) H 07/04/24 17:20 Urine Bacteria Cancelled 07/04/24 17:20 Hyaline Casts 2.46 /lpf 07/04/24 17:20 Hyaline Casts Cancelled 07/04/24 17:20 Fine Granular Casts Cancelled 07/04/24 17:20 Coarse Granular Casts Cancelled 07/04/24 17:20 RBC Casts Cancelled 07/04/24 17:20 Other Casts Cancelled 07/04/24 17:20 Urine Mucus Cancelled 07/04/24 17:20 Urine Trichomonas Cancelled 07/04/24 17:20 Urine Yeast Cancelled 07/04/24 17:20 Urine Sperm Cancelled 07/04/24 17:20 Ur Oval Fat Bodies Cancelled 07/04/24 17:20 All radiology interpretation(s) finalized by discharge Discharge Plan Discharge Patient Disposition: Home Clinical Impression: Threatened , UTI (urinary tract infection) during Condition: Stable Prescriptions: New cefdinir 300 mg capsule 300 mg PO BID Qty: 14 0RF No Action Aleve 220 mg Tablet 220 mg PO BID PRN (Reason: Pain) Vitamin B-1 (mononitrate) 100 mg Tablet 100 mg PO DAILY 30 Days Qty: 30 1RF ondansetron 4 mg film 4 mg PO DAILY PRN (Reason: nausea and vomiting) Qty: 10 0RF Percocet 5-325 mg tablet 1 tab PO Q8H Qty: 10 0RF Discharge Orders: Discharge ED (Routine); Ordered 07/04/24 Ordered By: Kamlesh Baker Referrals: Juan Morrison MD [Primary Care Provider] - 4-7 days Patient Instructions: Threatened Miscarriage (ED), Opioid Safety, Pain Management Activity Restrictions/Additional Instructions: Return for worsening vaginal bleeding, soaking 1 pad per hour for more than 3 hours, fever, increasing pain, any other concerning symptoms.. Limit lifting greater than 10 to 15 pounds, bending, stooping, and stairs. No sexual intercourse until cleared by your doctor. Call your doctor on Saturday morning for follow-up. Coding Level of Care Code ED Turning Lathe Tender for Trisha Denney
[2024-07-04 18:44] LABS: Add Urine Culture? No
[2024-07-04 18:58] LABS: Alanine Aminotransferase 9 U/L (0-33); Albumin Level 3.5 g/dL (3.5-5.2); Alkaline Phosphatase 30 U/L (35-105); Anion Gap 12.8 (5-19); Aspartate Amino Transferase 8 U/L (0-32); Blood Urea Nitrogen 11 mg/dL (6-20); Calcium 8.3 mg/dL (8.5-10.5); Carbon Dioxide 22 mmol/L (22-29); Chloride 104 mmol/L (98-107); Creatinine Clr Calc Pharmacy 190.8905; Globulin 1.9 g/dL (1.3-4.6); Glomerular Filtration Rate 190.1 mL/min (90-130); Glucose 76 mg/dL (65-115); Osmolality Calculated 278 mOsm/kg (285-295); Potassium 3.8 mmol/L (3.5-5.1); Sodium 135 mmol/L (136-145); Total Bilirubin 0.2 mg/dL (0.15-1.2); Total Protein 5.4 g/dL (6.6-8.7)
[2024-07-04 19:35] VITALS: BP 114/76; PULSE 75; RESP 18; O2SAT 97
--- NOTE | 2024-07-04 19:58 | PC.NURSE ---
Contacted pt per MD about abx prescription. Pt requested RX be sent to [facility]. ABX sent.
== END 2024-07-04 19:35 | disposition home or self-care (01) ==
PROVIDERS: Emergency Medicine; Emergency Provider Emergency Medicine; PCP Family Medicine
DX: O20.0 Threatened abortion (principal); Z3A.15 15 weeks gestation of pregnancy; O23.42 Unspecified infection of urinary tract in pregnancy, second trimester; N39.0 Urinary tract infection, site not specified; Z72.0 Tobacco use
CPT/HCPCS: 36415; 76815; 80053; 81001; 84702; 85025; 86900; 99284

== ENCOUNTER 2024-12-18 10:50 | Inpatient (IN) | payer BC, MEDICAID, SELFPAY ==
[2024-12-18] VITALS (75 sets, daily range): BP systolic 100–163; BP diastolic 54–88; PULSE 79–120; RESP 16–18; TEMP 36.7–37.1; O2SAT 97–100; BMI 31.3
[2024-12-18 10:54] LABS: Basophils % 0.1 %; Eosinophils % 0.2 %; Lymphocytes # 1.6 10^3/uL (0.8-4.8); Lymphocytes % 12.4 %; Mean Corpuscular HGB Conc 33.5 g/dL (30-55); Mean Corpuscular Hemoglobin 28.6 pg (27-33); Mean Corpuscular Volume 85.4 fl (85-98); Mean Platelet Volume 11.2 fL (7.4-10.4); Monocytes # 0.8 10^3/uL (0.2-0.9); Monocytes % 6.1 %; Neutrophils # 10.51 10^3/uL (1.8-7.7); Neutrophils % 80.7 %; Nucleated Red Blood Cells % 0 %; Platelet Count 231 10^3/cmm (157-399); Red Blood Count 3.98 10^6/uL (3.85-5.65); Red Cell Distribution Width 13.6 % (12.1-15.1); White Blood Count 13.04 10^3/uL (3.29-11.43)
[2024-12-18] MEDS: lactated ringers 1,000 ML 999 ML IV (10:54)
[2024-12-18] MEDS: ROPivacaine syringe 100 MG/50 ML SYRINGE 10 MG EPIDURAL (11:52)
[2024-12-18] MEDS: dextrose 5%-lactated ringers 1,000 ML 125 ML IV (11:59)
--- NOTE | 2024-12-18 12:00 | ANES.PREANE2 ---
Pre-Anesthetic Assessment Height/Weight: Height 1.6 m Weight 80.286 kg Pulse BP Pulse Ox O2 Del Method 90 122/67 100 Room Air 12/18/24 11:54 12/18/24 11:54 12/18/24 11:53 12/18/24 10:49 Preop Diagnosis: IUP Epidural Familial anesthetic complications: NOne Was Beta Dimas taken within 24 hours: N/A Was Clonidine taken within 24 hours: N/A Social No alcohol and No tobacco Exam alert, oriented x 3, clear to auscultation bilaterally and regular rate & rhythm Anesthetic Plan ASA status: 2 Anesthesia: Regional (specify below) Medications/Allergies Home Medications ?Medication ?Instructions ?Recorded ?Confirmed ?Last Taken ?Type naproxen sodium 220 mg tablet 220 mg PO BID PRN Pain 10/09/21 10/09/21 10/08/21 History (Aleve) thiamine mononitrate (vit B1) 100 100 mg PO DAILY 30 days #30 tabs 10/12/21 Unknown Rx mg tablet (Vitamin B-1 (mononitrate)) ondansetron 4 mg oral soluble film 4 mg PO DAILY PRN nausea and 01/05/22 Unknown Rx vomiting #10 ea oxycodone-acetaminophen 5 mg-325 1 tab PO Q8H #10 tabs 01/05/22 Unknown Rx mg tablet (Percocet) cefdinir 300 mg capsule 300 mg PO BID #14 caps 07/04/24 Unknown Rx Allergies Allergy/AdvReac Type Severity Reaction Status Date / Time Sulfa (Sulfonamide AdvReac Mild possible Verified 07/04/24 17:15 Antibiotics) reaction as a child Current Medications Generic Name Dose Route Start Last Admin Trade Name Sonq PRN Reason Stop Dose Admin Dextrose/Lactated Ringer's 1,000 mls @ 125 mls/hr 12/18/24 11:00 12/18/24 11:59 Dextrose 5%-Lactated Ringers IV 125 mls/hr .Q8H LETICIA Administration Lactated Ringer's 1,000 mls @ 999 mls/hr 12/18/24 10:48 12/18/24 10:54 Lactated Ringers IV 999 mls/hr .Q1H1M PRN Administration See label comments Ropivacaine 100 mg in 50 mls @ 10 mls/hr 12/18/24 11:00 12/18/24 11:52 Naropin Syringe EPIDURAL 10 mls/hr .Q5H LETICIA Administration PFSH Anesthesia Medical History Cholelithiasis 1 para 1 Alcohol abuse Acute pancreatitis History of gestational diabetes Surgical History History of esophageal surgery Patient reports history of esophageal surgery as an infant. States surgery was performed right after and she does not know the details but has been told her esophagus came to a stop . She has a scar on her right back from where the surgery was performed. She has not had any difficulty or restrictions after having the surgery. Family History Grandfather Diabetes Maternal Hypertension Maternal Denies family history of CAD (coronary artery disease) Hyperlipidemia Pancreatitis Cancer Stroke Social History Smoking and tobacco/nicotine status: current some day tobacco/nicotine user cigarettes [ Other cigarette details: when she drinks] Alcohol intake: current Alcohol intake frequency: few times a week Alcohol type: hard liquor Substance/Drug Use: never Additional social history: -- Lives independently: Yes Household members: significant other and children Female Reproductive History : 2 Data Anesthesia 12/18/24 10:45 Short CBC 12/18/24 Range/Units 10:45 WBC 13.04 H (3.29-11.43) 10^3/uL Hgb 11.40 (11.27-16.99) g/dL Hct 34.0 L (36-47) % MCV 85.4 (85-98) fl Plt Count 231 (157-399) 10^3/cmm Neut % (Auto) 80.7 % Neut # (Auto) 10.51 H (1.8-7.7) 10^3/uL Blood Bank 12/18/24 10:45 Blood Type A Positive Rho(D) Type Rh positive Antibody Screen Negative Cardiac Studies: No Data to Display Anesthesia Procedures Epidural Time Out Performed: Yes Consents Signed: Procedure Consent Consent: requested by attending/covering physician, from patient, from other, risks and benefits reviewed, patient agrees to proceed and emergency procedure Lumbar Level: L2-L3 Epidural position: sitting Epidural procedure: sterile prep of area, 1% lidocaine to numb the area, 18 g needle, negative for paresthesia passed, neg for paresthesia, test dose given, 1.5% xylocaine 1:200k epi (5), 0.2% Ropivacaine bolus ml (5), placed PCEA, no systemic response, sterile dressing applied, L.U.D. no apparent complications and 0.2% Ropiavacaine @ mls/hr (10) Additional Comments: Alec at 5 cm, threaded to 11 cm. Patient reported decreased pain of following contraction
[2024-12-18] MEDS: ROPivacaine syringe 100 MG/50 ML SYRINGE 13 MG EPIDURAL (14:10)
--- NOTE | 2024-12-18 15:23 | PM.OPHPUD ---
Labor & Delivery H&P Update Date of Procedure: December 18, 2024 Date H&P Performed: 12/16/24 Changes to previous documentation: The patient presented to the hospital in active labor with cervical change Admission Diagnosis: 28-year-old 2 para 1-0-0-1 at 37 weeks and 5 days estimated gestational age Preop diagnosis: IUP Other information: The patient is a 28-year-old female who has had an unremarkable with consistent care she arrived to the hospital in active labor. She been having contractions for several hours prior to arriving at the hospital. Her blood type is O+. Her antibody screen is negative. Her glucose screen was 125. She was GBS negative. She is rubella immune. The remainder of her infectious disease profile is within normal limits. Related Problem List Diagnoses (1) 37 weeks gestation of : A&P Assessment and plan (1) 37 weeks gestation of : I anticipate routine vaginal delivery Status: Acute PDMP PDMP Reviewed: Not Reviewed
[2024-12-18] MEDS: oxytocin 30 UNIT/500 ML BAG 600 UNIT IV (15:31)
--- NOTE | 2024-12-18 15:37 | PM.DELIVERY ---
Delivery Note: Date of delivery: December 18, 2024 Pre-delivery diagnoses: 28-year-old 2 para 1-0-0-1 at 37 weeks estimated gestational age Post-delivery diagnoses: Status post spontaneous vaginal delivery Procedure: Spontaneous vaginal delivery Delivering Physician: Juan Morrison Estimated blood loss (mL): 50 Pre-Delivery Course: The patient presented to the hospital in active labor. An epidural was placed. She progressed to complete without difficulty. An amniotomy was performed. Delivery: DELIVERY: The patient progressed to complete without difficulty. She delivered a female with a weight of 6 pounds 6 ounces with Apgars of 9, 9. The baby was delivered from the YAO position and placed on the mother's abdomen. The cord was then clamped and cut. There was no nuchal cord. There was no meconium. The placenta and 3 vessel cord were delivered intact shortly thereafter. The perineum and vaginal vault were carefully examined. Several superficial vaginal wall lacerations were noted. No more bleeding. None required repair.. Both the mother and the baby were in stable condition. History History History 2 Term 1 0 Miscarriages/Ectopic 0 Living Children 1 A&P Assessment and plan (1) Spontaneous vaginal delivery: I anticipate routine care PDMP PDMP Reviewed: Not Reviewed Coding Level of Care Code Acute Code for Chg Fwd Diagnoses Spontaneous vaginal delivery O80
[2024-12-18] MEDS: benzocaine-menthol 78 gm Canister 1 SPRAY TOPICAL (17:01)
[2024-12-18] MEDS: lanolin oint 7 gm 1 APPLIC TOPICAL (17:01)
[2024-12-18] MEDS: docusate sodium 100 mg Capsule PO (18:20)
[2024-12-18] MEDS: ibuprofen 800 mg tablet PO (21:07)
[2024-12-19 02:00] VITALS: BP 107/67; PULSE 87; RESP 18; TEMP 36.9; O2SAT 97
[2024-12-19 05:01] LABS: Hematocrit 32.1 % (36-47); Mean Corpuscular HGB Conc 32.7 g/dL (30-55); Mean Corpuscular Hemoglobin 28.5 pg (27-33); Mean Corpuscular Volume 87.2 fl (85-98); Mean Platelet Volume 11.8 fL (7.4-10.4); Platelet Count 199 10^3/cmm (157-399); Red Blood Count 3.68 10^6/uL (3.85-5.65); Red Cell Distribution Width 13.9 % (12.1-15.1); White Blood Count 15.35 10^3/uL (3.29-11.43)
[2024-12-19 05:48] VITALS: BP 116/76; PULSE 86; RESP 18; TEMP 36.7
--- OUTSIDE RECORDS SUMMARY | 2024-12-19 06:14 | XMS_ITS | Data Portability ---
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 Patient notified she needs to see a dentist to manage her dental pain/infectio marely [email or web address] Not available 10/28/2024 10:52:00 Plan of Treatment Reminders Order Date Submit Date Provider Last Modified By Organization Details Last Modified Time Details Appointments RETURN OB 2024 08:10A M Juan Morrison MD Not available Not available Not available RETURN OB 2024 08:00A Tamar Morrison MD Not available Not available Not available Lab streptoco ccus group B, culture, unspecifi ed specimen 2024 025 [facility], [address] [facility] [address], [address] [place], [address], 12/12/2024 09:23:46 glucose, QN [mass/vol ume], blood 2024 025 [facility], [address] [facility] [address], [place], [address], 11/11/2024 11:45:51 Referral None recorded. Procedures None recorded. Surgeries None recorded. Imaging None recorded. Medication Orders amoxicill in 875 mg tablet 2024 025 [facility], [address], [place], [address], 11/11/2024 10:16:40 Patient TargetsNo targets recorded. Patient InstructionsNo instructions recorded. Reason for Referral None Reported. Results Created Date Observation Date Name Description Value Unit Range Abnormal Flag Note LastModifiedBy Organization Detail LastModifiedTime 11/12/19 25 11/11/2024 GLUCO SE SCREE N glucose screen 137.0 mg/dL Not Available [facility] [address] [facility] [address], [place], [address], 11/11/2024 11:45:51 12/10/19 25 12/12/2024 STREP TOCOC CUS, GROUP B CULTU RE streptococcu s, group B culture SEE NOTE STREP TOCOC CUS, GROUP B CULTU RE Micro Numbe r: [id number] Test Statu s: Final Speci men Sourc e: Vagin al/an orect al Speci men Quali ty: Adequ ate Resul t: No group B Strep tococ cus isola brian Note per CDC guide lines optim al recov edwige is achie arnoldo by swabb ing both the lower vagin a and rectu m (thro ugh the anal sphin cter) . Not Available [employer] [facility] [address] , [place], [address], 12/12/2024 09:23:46 10/21/19 25 10/15/2024 US, obste tric, 3rd trime ster No observ ation record ed. [email or web address] Not Available 10/26 11:37:16 Result Notes None recorded. Problems Name Problem SNOMED Code Status Onset Date Resolution Date Notes Provider Name and Address Organization Details Recorded Time Normal in multigrav johnson 545454851627 106 Active 2023 [facility] 10:04:16 Normal in multigrav johnson 395095941660 106 Active 2023 [facility] 5 10:04:16 Abnormal chromosom al and genetic finding on screening of mother Active 2023 She does not want to see a perinatol ogist at this time. SERG norris [facility], LSadiaLSadiaCSadia 5 10:04:11 Abnormal chromosom al and genetic finding on screening of mother Active 2023 She does not want to see a perinatol ogist at this time. SERG norris [facility], LSadiaLRoger 5 10:04:11 Problem Notes None recorded. Procedures Surgical History Date Name Laterality Status Provider Name and Address Organization Details Recorded Time 024 Date of Last Pap Smear completed [facility], LSadiaLSadiaCSadia 11/25/2024 08:54:12 024 sampling of cervix for Papanicolaou smear completed [facility], L.L.CSadia 11/25/2024 08:53:39 cholecystectomy completed [facility], [facility] 10/28/2024 10:23:50 Imaging Results Imaging Date Name Status LastModified by Organiz ation Details LastModified Time 10/15/2024 US, obstetric, 3rd trimester completed [email or web address] Information not available 10/26/2024 11:37:16 Procedure Notes None recorded. Medical Equipment None Reported. Allergies Allergen ID Allergen Name Allergen Category Reaction Reaction Severity Criticality Documentation Date Start Date Code Code System Note Provider Name and Address Organization Details Recorded Time 5309 Substance with sulfonami de structure and antibacte rial mechanism of action (substanc e) medicatio n Not available Not available Not available 03/07/2023 64424 8003 SNOMED LAURIE norris [facility], L.L.CSadia 3 18:21:06 Medications Name Sig Start Date Stop Date Status Note LastModified by Organization Details LastModified Time cyclobenz aprine 10 mg tablet three times daily, as needed 09/04 completed Recorded 11/11/19 23 3:58PM by Ramandeep Kothari, Office Visit; Refill Quantity : 0; Not Available Not Available Not Available promethaz ine-DM 6.25 mg-15 mg/5 mL oral syrup every 6 hours as needed for cough 09/04 completed Recorded 11/11/19 23 4:19PM by RIN Hernandez, Office Visit; Refill Quantity : 0; Not Available Not Available Not Available ibuprofen 800 mg tablet three times daily 09/04 completed Recorded 11/11/19 23 3:58PM by Ramandeep Kothari, Office Visit; Refill Quantity : 0; Not Available Not Available Not Available benzonata te 200 mg capsule Take 1 capsule 3 times a day by oral route for 10 days. 09/04 completed Not Available Not Available Not Available hydrocodo ne 5 mg-acetam inophen 325 mg tablet TAKE 2 TABLETS BY MOUTH EVERY 6 HOURS NEEDED FOR PAIN 09/04 completed Not Available Not Available Not Available prednison e 20 mg tablet Take 2 tablets every day by oral route for 5 days. 09/04 completed Not Available Not Available Not Available Zithromax Z-Khari 250 mg tablet TAKE 2 TABLETS (500 MG) BY ORAL ROUTE ONCE DAILY FOR 1 DAY THEN 1 TABLET (250 MG) BY ORAL ROUTE ONCE DAILY FOR 4 DAYS 09/04 completed Not Available Not Available Not Available amoxicill in 875 mg tablet Take 1 tablet every 12 hours by oral route. 11/11 completed Not Available Not Available Not Available active Not Available Not Avai lable Not Available Vitals Date Recorded Body height Body mass index (BMI) Body weight Oxygen saturation Oxygen saturation in Arterial blood by Pulse oximetry Heart rate Respiratory rate Body temperature Systolic blood pressure Diastolic blood pressure Provider Name and Address Organization Details Last Updated DateTime 160.02 cm 29.5 kg/m2 18431.1 3 g 99 % 99 % 84 /min 18 /min 98.7 [degF] 122 mm[Hg] 78 mm[Hg] WILMAR HANNON [facility], L.Roger 5 10:30:42 Date Recorded Body height Body mass index (BMI) Body weight Oxygen saturation Oxygen saturation in Arterial blood by Pulse oximetry Heart rate Respiratory rate Body temperature Systolic blood pressure Diastolic blood pressure Provider Name and Address Organization Details Last Updated DateTime 5 160.02 cm 30.1 kg/m2 05126.7 g 99 % 99 % 88 /min 18 /min 97.9 [degF] 110 mm[Hg] 62 mm[Hg] WILMAR HANNON [facility], LSadiaLRoger 5 10:21:14 Date Recorded Body height Body weight Oxygen saturation Oxygen saturation in Arterial blood by Pulse oximetry Heart rate Respiratory rate Body temperature Systolic blood pressure Diastolic blood pressure Provider Name and Address Organization Details Last Updated DateTime 5 160.02 cm 85062.0 7238 g 99 % 99 % 91 /min 18 /min 98 [degF] 110 mm[Hg] 64 mm[Hg] WILMAR HANNON [facility], LSadiaLRoger 5 09:04:24 Date Recorded Body height Body mass index (BMI) Body weight Heart rate Respiratory rate Body temperature Systolic blood pressure Diastolic blood pressure Provider Name and Address Organization Details Last Updated DateTime 5 160.02 cm 31.1 kg/m2 97239.4 6 g 100 /min 16 /min 98 [degF] 112 mm[Hg] 76 mm[Hg] SERG DELGADO [facility], LSadiaLRoger 5 09:10:32 Date Recorded Body height Body mass index (BMI) Body weight Oxygen saturation Oxygen saturation in Arterial blood by Pulse oximetry Heart rate Respiratory rate Body temperature Systolic blood pressure Diastolic blood pressure Provider Name and Address Organization Details Last Updated DateTime 5 160.02 cm 30.8 kg/m2 62365.0 7 g 99 % 99 % 85 /min 18 /min 98.5 [degF] 118 mm[Hg] 70 mm[Hg] WILMAR HANNON [facility], LSadiaLRoger 5 09:20:25 Social History Question Answer Notes LastModified by Organizat ion Details LastModified Time Tobacco Smoking Status Former Smoker SUSIE MEHTA [facility] 09/04/2023 16:04:04 What Is Your Level Of Alcohol Consumption? None Information not available 05/20/2024 If You Are , What Was Your Level Of Alcohol Consumption Prior To ? None Information not available 10/28/2024 Are You Blind Or Do You Have Difficulty Seeing? No Information not available 10/28/2024 Are You Deaf Or Do You Have Serious Difficulty Hearing? No Information not available 10/28/2024 Which Of Your Hands Is Dominant? Right Information not available 10/28/2024 What Is Your Relationship Status? Domestic Partner Information not available 05/20/2024 Are You Sexually Active? Yes Information not available 05/20/2024 At What Age Did You Start Smoking Tobacco? 18 Information not available 10/28/2024 Do You Use Any Illicit Or Recreational Drugs? No Information not available 05/20/2024 Sex: Unknown Functional Status Question Answer Note LastModified by Organizat ion Details LastModified Time Do you have difficulty walking or climbing stairs? No Information not available 10/28/2024 Do you have transportation difficulties? No Information not available 10/28/2024 Are you able to walk? YESWOREST Information not available 10/28/2024 Do you have difficulty doing errands alone? No Information not available 10/28/2024 Are you able to care for yourself? Yes Information not available 05/20/2024 Do you have difficulty dressing or bathing? No Information not available 10/28/2024 Mental Status Question Answer Note LastModified by Organization D etails LastModified Time Do you have difficulty concentrating, remembering or making decisions? No Information no t available 10/28/2024 Family History Relationship Description Onset Age of this Age Resolved Age Notes LastModified by Organization Details LastModified Time Father No current problems or disability [email or web address] Not available 05/2024 16:03:58 Mother No current problems or disability [email or web address] Not available 05/2024 16:03:58 Medical History Condition Response Coronary Artery Disease N Other N Gout N Kidney Stones N Blood Diseases N Hyperthyroidism N Breast Cancer N Blood Transfusion N Depression N Hypothyroidism N Lung Disease N COPD N Defects or Inherited Disease N Developmental or Behavioral Disorders N Breast Problem N Difficulty Swallowing N Anesthesia Complications N Meniere's disease N Anxiety Disorder N Muscle, Joint, or Bone Problems N Vision or Eye Problems N Arthritis N Polyps N Infertility N Cancer N Varicosities N Stroke N Endometriosis N Bladder or Kidney Problems N High Cholesterol N Liver Disease N Fibromyalgia N Headaches N Kidney Disease N Allergies/Hayfever N Heart Problems N Ear or Hearing Problems N Hospitalizations N Thyroid Problems N GI Problems N ADD/ADHD N Skin Problems N Eating Disorder N Anemia N Constipation N Mental Illness N Ovarian Cancer N Diabetes N Bedwetting N Seizures/Epilepsy N Tuberculosis N Eczema N Diverticulitis N Abuse/Domestic Violence N Asthma N Reflux/GERD N Hepatitis N Heart Disease N Pulmonary Embolism N Pre-Eclampsia N Hypertension N Chronic Ear Infections N Osteoporosis N Chicken Pox N Autism Spectrum Disorder (ASD) N Thrombophilias N Gynecological History Statement/Question Response Abnormal Pap N Date of Last Pap Smear 09/05/2023 Obstetrics History GPAL:G 2 P 1 0 0 1 Type Value Full Term 1 Living 1 Total 2 Immunizations Vaccine Type Date Status Note Provider Nam e and Address Organization Details Recorded Time IPV 10/24/2000 [facility] 09/04/2023 16:03:07 MMR 10/24/2000 [facility]an [facility] 09/04/2023 16:03:07 MMR 07/12/1998 [facility] 09/04/2023 16:03:07 influenza, unspecified formulation 06/28/1999 [facility] 09/04/2023 16:03:07 DTP 02/28/1996 completed SUSIE MEHTA null, [facility] 09/04/2023 16:03:07 DTP 05/04/1996 completed SUSIE MEHTA null, [facility] 09/04/2023 16:03:07 DTP 07/30/1996 completed SUSIE MEHTA null, [facility] 09/04/2023 16:03:07 Hep B, unspecified formulation 11/12/1996 completed SUSIE MEHTA null, [facility] 09/04/2023 16:03:07 Hep B, unspecified formulation 01/24/1996 completed SUSIE MEHTA null, [facility] 09/04/2023 16:03:07 Hep B, unspecified formulation 02/28/1996 completed SUSIE MEHTA null, [facility] 09/04/2023 16:03:07 OPV 02/28/1996 completed SUSIE MEHTA null, [facility] 09/04/2023 16:03:07 OPV 05/04/1996 completed SUSIE MEHTA null, [facility] 09/04/2023 16:03:07 OPV 07/30/1996 completed SUSIE MEHTA null, [facility] 09/04/2023 16:03:07 Hib (PRP-T) 02/28/1996 completed SUSIE MEHTA null, [facility] 09/04/2023 16:03:07 Hib (PRP-T) 05/04/1996 completed SUSIE MEHTA null, [facility] 09/04/2023 16:03:07 Hib (PRP-T) 07/12/1998 completed SUSIE MEHTA null, [facility] 09/04/2023 16:03:07 Hib (PRP-T) 07/30/1996 completed SUSIE LALH TYSON norris, [facility], Geni 09/04/2023 16:03:07 DTaP 10/24/2000 completed SUSIE LALH TYSON norris, [facility], AlejandroCSadia 09/04/2023 16:03:07 DTaP 07/12/1998 completed SUSIE norris, [facility], eGni 09/04/2023 16:03:07 Past Encounters Encounter ID Performer Location Encounter Start Date Encounter Closed Date Diagnosis/Indication Diagnosis SNOMED-CT Code Diagnosis ICD10 Code Diagnosis Note [id number] RIN JULIAN [facility] ([facility]) [address] [place] [phone] 5 02/11/2023 16:28:10 02/11/2023 20:20:46 Acute bronchitis 30258115 J20.9 [id number] Felipe Francois DO [facility] ([facility]) [address] [place] [id number] 5 03/07/2023 18:06:39 04/07/2023 17:42:51 Injury of right hand [id number] 8926704 S69.91XA Pain in right thumb 1076 467890 572778 M79.581 [id number] Gema Nunez MD [facility] ([facility]) [address] [place] [address]1717[address]946 5 09/04/2023 15:55:57 09/04/2023 16:27:28 Gynecologic examination 63341660 Z01.166 [id number] Juan Morrison MD [facility] ([facility]) [address] [place] [id number] 5 05/20/2024 09:09:28 05/20/2024 10:12:51 Normal in multigravida 5541560111 76374 Z34.81 Gestation period, 8 weeks 78588209 Z3A.08 [id number] Juan Morrison MD [facility] ([facility]) [address] [place] [id number] 5 06/24/2024 10:00:41 06/24/2024 12:00:47 Normal in multigravida 0502318495 51277 Z34.81 [id number] MOUSTAPHA ROYAL [facility] ([facility]) [address] [place] [address] [id number] 5 06/25/2024 13:53:49 06/26/2024 12:04:52 [id number] Juan Morrison MD [facility] ([facility]) [address] [place] [id number] 5 07/07/2024 09:55:35 07/07/2024 11:00:14 Normal in multigravida 2079856521 14625 Z34.81 Spotting p er vagina in 914727307 O26.175 [id number] Juan Morrison MD [facility] ([facility]) [address] [place] [id number] 5 07/21/2024 09:44:28 07/21/2024 10:46:21 Normal in multigravida 9031078992 51303 Z34.81 Gestation period, 16 weeks 51356022 Z3A.16 Abnormal c hromosomal and genetic finding on screening of mother 647268010 O28.5 We discussed possible perinatolo gy appt. She is going to think about it. [id number] SERG DANNY [facility] ([facility]) [address] [place] [id number] 5 08/05/2024 09:03:55 08/06/2024 14:39:47 [id number] Juan Morrison MD [facility] ([facility]) [address] [place] [address] [id number] 5 08/18/2024 09:02:10 08/18/2024 09:30:57 Normal in multigravida 2712424024 90996 Z34.81 Gestation period, 20 weeks 45113511 Z3A.20 [id number] Juan Morrison MD [facility] ([facility]) [address] [place] [id number] 5 09/16/2024 09:36:40 09/16/2024 11:56:38 Normal in multigravida 0769593388 37453 Z34.81 Abnormal c hromosomal and genetic finding on screening of mother 842434946 O28.5 We discussed possible perinatolo gy appt. She is going to think about it. Gestation period, 24 weeks 597269564 Z3A.24 [id number] Juan Morrison MD [facility] ([facility]) [address] [place] [id number] 5 09/30/2024 09:51:52 09/30/2024 10:40:25 Normal in multigravida 3560420904 90160 Z34.81 Gestation period, 26 weeks 10832414 Z3A.26 Abnormal c hromosomal and genetic finding on screening of mother 862216049 O28.5 We discussed possible perinatolo gy appt. She is going to think about it. [id number] Juan Morrison MD [facility]) [address] [place] [id number] 5 10/15/2024 09:31:49 10/15/2024 10:36:02 Normal in multigravida 1044909489 24102 Z34.83 Gestation period, 28 weeks 96728438 Z3A.28 Abnormal c hromosomal and genetic finding on screening of mother 160195896 O28.5 We discussed possible perinatolo gy appt. She is going to think about it. [id number] MOUSTAPHA ROYAL [facility] ([facility]) [address] [place] [address] [id number] 5 10/15/2024 09:01:34 10/16/2024 09:39:41 [id number] Juan Morrison MD [facility] ([facility]) [address] [place] [id number] 5 10/28/2024 09:51:51 10/28/2024 11:03:04 Normal in multigravida 6055053528 50928 Z34.83 Gestation period, 30 weeks 74231211 Z3A.30 Toothache 52808035 K08.8 9 [id number] Juan Morrison MD [facility] ([facility]) [address] [place] [id number] 5 11/11/2024 09:49:31 11/11/2024 14:51:15 Normal in multigravida 7346264572 90146 Z34.83 Gestation period, 32 weeks 4396828 Z3A.32 [id number] Juan Morrison MD [facility] ([facility]) [address] [place] [id number] 5 11/25/2024 08:49:31 11/25/2024 09:26:52 Normal in multigravida 6968169164 06344 Z34.83 Gestation period, 34 weeks 39051768 Z3A.34 [id number] Juan Morrison MD [facility] ([facility]) [address] [place] [address] [id number] 5 12/09/2024 08:51:32 12/09/2024 09:50:49 Normal in multigravida 1921348370 85993 Z34.83 Gestation period, 36 weeks 19156705 Z3A.36 Health Concerns Section Related Observation LastModified by Organization Detai ls LastModified Time None Recorded Concern Status LastModified by Organization Details LastModified Time None Recorded Advance Directives Directive None Recorded Payers Encounter Date Sequence Insurance Name Policy Number Policy Cardenas Covered Member ID Cardenas Member ID Guarantor Name 10/28/2024 1 [employer] [place] [id number] Augie N Stefan [id number] 28 Augie Stefan 11/11/2024 1 [employer] [place] [id number] Augie N Stefan [id number] 28 Augie Stefan 11/25/2024 1 [employer] [place] [place] [id number] Augie N Stefan [id number] 28 Augie Stefan 12/09/2024 1 [employer] [place] [place] [id number] Augie N Stefan [id number] 28 Augie Stefan Notes Date Note Type Note Provider Name and Address Organization Details Recorded Time 10/28/2024 text/html jr ob routineRep orted bypatient.Associated Symptoms:no abdominal pain; no cramping; no contractions; normal movement; no bleeding; no vaginal discharge; no vaginal/vulvar itching or irritation; no dysuria; no frequency; no urgency; no hematuria; no fever; no nausea; no emesis; no constipation; no diarrhea/loose stool; no edema; no visual changes; no dizziness; no decrease in urine volume; no hyperreflexia;headach e;breathlessnessNotes :heartburn, back pain, pelvic painDenies tobacco, alcohol or drug use. Pt is having dental pain, pt face is swollen,pt has a sore throat Juan Morrison MD [address] [place] [address], [phone], [facility], LSadiaLRoger 10/28/2024 10:52:14 11/11/2024 text/html ob routineRep orted bypatient.Associated Symptoms:no abdominal pain; no cramping; no contractions; normal movement; no bleeding; no vaginal/vulvar itching or irritation; no dysuria; no frequency; no urgency; no hematuria; no fever; no nausea; no emesis; no edema; no visual changes; no dizziness; no decrease in urine volume; no hyperreflexia;vaginal discharge;constipatio n;diarrhea/loose stool;headache;breath lessnessNotes:heartbu rn, back pain, pelvic painDenies tobacco, alcohol or drug use. Juan Morrison MD [address] [place] [address], [phone], [facility], LSadiaLRoger 12/01/2024 21:58:50 11/25/2024 text/html ob routineRep orted bypatient.Associated Symptoms:no abdominal pain; no cramping; no contractions; normal movement; no bleeding; no vaginal discharge; no vaginal/vulvar itching or irritation; no dysuria; no frequency; no urgency; no hematuria; no fever; no nausea; no emesis; no constipation; no diarrhea/loose stool; no edema; no visual changes; no headache; no dizziness; no decrease in urine volume; no breathlessness; no hyperreflexiaNotes:he artburn, back painDenies tobacco, alcohol or drug use. Juan Morrison MD [address] [place] [address], [phone], [facility], Gen[facility] 11/25/2024 09:19:44 12/09/2024 text/html jr ob routineRep orted bypatient.Associated Symptoms:no abdominal pain; no contractions; normal movement; no bleeding; no vaginal discharge; no vaginal/vulvar itching or irritation; no dysuria; no frequency; no urgency; no hematuria; no fever; no nausea; no emesis; no constipation; no diarrhea/loose stool; no edema; no visual changes; no headache; no dizziness; no decrease in urine volume; no breathlessness; no hyperreflexia;crampin gNotes:heartburn, back pain,pelvic pain, vaginal pressureDenies tobacco, alcohol or drug use. Juan Morrison MD [address] [place] [address], [phone], [facility] 12/09/2024 09:36:44 OBGyn Episode Ob Episode Information Episode Created Date Number of Fetuses Patient Bloodtype Patient rh Status Prepregnancy Weight lbs Domestic Partner Domestic Partner Phone Father Name Delivery Aide Status 05/20/20 24 1 A Positive Damir OPEN Fetus Data First Name Last Name Admitted to NICU Weight (g) Sex Living Outcome Pediatric Complications Fetus ID Race Codes Race Delivery Type [id number] Problems Problem Notes gestational diabetes in 1st pregnancySex indeterminate due to more x chromosome noted than expected - Considering referral to perinatology with amnio - Patient does not want to see perinatology Problem Name Start Date End Date Resolution Snomed Code Not e Normal in multigravida 06/23/2024 [id number] Abnormal chromosomal and genetic finding on screening of mother 07/20/2024 [id number] She does not wa nt to see a perinatologist at this time. Willa Calculation Initial Willa Date Initial Exam Date Initial Exam Provider Initial Ultrasound Date Last Menstrual Period Date Ultra Sound Weeks Gestation 01/03/2025 05/20/2024 06/25/2024 03/23/2024 12 Eighteen To Twenty Week Willa Update Ultra Sound Date Fundal Height At Umbil Quickening Date Ultra Sound Latest Weeks Gestation Final Willa Confirmed By Final Willa Confirmed Date Final Willa Date Ultra Sound Latest Days Gestation 0 0 Pre- Flowsheet Flowsheet Date 05/20/2024 Kearney Score Blood Edema Fundus Height Fundus Units Glucose Ketones Leukocytes Nitrite Labor Signs Protein Cervic Dilation Cervic Effacement Cervic Station Type Weight in lbs Pre/Post Dialysis Refused Weight 144.584099912696 BP Diastolic BP Location Tested BP Systolic BP Type 70 124 sitting Fetus Heart Rate Present Fetus Movement Comments OBI Flowsheet Date 06/24/2024 Kearney Score Blood Edema Fundus Height Fundus Units Glucose Ketones Leukocytes Nitrite Labor Signs Protein Cervic Dilation Cervic Effacement Cervic Station Type Weight in lbs Pre/Post Dialysis Refused 146.993222157725 BP Diastolic BP Location Tested BP Systolic BP Type 62 112 sitting Fetus Heart Rate Present Fetus Movement Comments NOB-N/V, headache Flowsheet Date 06/25/2024 Kearney Score Blood Edema Fundus Height Fundus Units Glucose Ketones Leukocytes Nitrite Labor Signs Protein Cervic Dilation Cervic Effacement Cervic Station Type Weight in lbs Pre/Post Dialysis Refused BP Diastolic BP Location Tested BP Systolic BP Type Fetus Heart Rate Present Fetus Movement Comments Flowsheet Date 06/30/2024 Kearney Score Blood Edema Fundus Height Fundus Units Glucose Ketones Leukocytes Nitrite Labor Signs Protein Cervic Dilation Cervic Effacement Cervic Station Type Weight in lbs Pre/Post Dialysis Refused BP Diastolic BP Location Tested BP Systolic BP Type Fetus Heart Rate Present Fetus Movement Comments u/s on 06/25/24, WILLA 01/03/25 , EGA 12.4. FHR 161 Flowsheet Date 07/06/2024 Kearney Score Blood Edema Fundus Height Fundus Units Glucose Ketones Leukocytes Nitrite Labor Signs Protein Cervic Dilation Cervic Effacement Cervic Station Type Weight in lbs Pre/Post Dialysis Refused BP Diastolic BP Location Tested BP Systolic BP Type Fetus Heart Rate Present Fetus Movement Comments Healthy Blue RA complete Flowsheet Date 07/07/2024 Kearney Score Blood Edema Fundus Height Fundus Units Glucose Ketones Leukocytes Nitrite Labor Signs Protein Cervic Dilation Cervic Effacement Cervic Station none neg Type Weight in lbs Pre/Post Dialysis Refused 149.399804511995 BP Diastolic BP Location Tested BP Systolic BP Type 70 126 Fetus Heart Rate Present A 156 Present Fetus Movement A No Comments ER follow up for spotting. U /S in Er showed Placenta Previa Flowsheet Date 07/21/2024 Kearney Score Blood Edema Fundus Height Fundus Units Glucose Ketones Leukocytes Nitrite Labor Signs Protein Cervic Dilation Cervic Effacement Cervic Station none trace neg Type Weight in lbs Pre/Post Dialysis Refused 150.841135057118 BP Diastolic BP Location Tested BP Systolic BP Type 64 116 Fetus Heart Rate Present A 156 Present Fetus Movement A No Comments constipation Flowsheet Date 08/05/2024 Kearney Score Blood Edema Fundus Height Fundus Units Glucose Ketones Leukocytes Nitrite Labor Signs Protein Cervic Dilation Cervic Effacement Cervic Station Type Weight in lbs Pre/Post Dialysis Refused BP Diastolic BP Location Tested BP Systolic BP Type Fetus Heart Rate Present Fetus Movement Comments u/s on 08/05/24, WILLA 01/03/25 , EGA 18.3,Breech, unremarkable screening survey of anatomy. Anterior fundal placenta. No previa. Flowsheet Date 08/18/2024 Kearney Score Blood Edema Fundus Height Fundus Units Glucose Ketones Leukocytes Nitrite Labor Signs Protein Cervic Dilation Cervic Effacement Cervic Station none none Negative neg Type Weight in lbs Pre/Post Dialysis Refused 154.760323667467 BP Diastolic BP Location Tested BP Systolic BP Type 60 120 sitting Fetus Heart Rate Present A 164 Present Fetus Movement A Yes Comments cough, head and chest conges tion, nausea,constipation Flowsheet Date 09/16/2024 Kearney Score Blood Edema Fundus Height Fundus Units Glucose Ketones Leukocytes Nitrite Labor Signs Protein Cervic Dilation Cervic Effacement Cervic Station 24 cm none trace Negative neg Type Weight in lbs Pre/Post Dialysis Refused Weight 158.225781515487 BP Diastolic BP Location Tested BP Systolic BP Type 62 110 sitting Fetus Heart Rate Present A 146 Present Fetus Movement A Yes Comments feeling well, glucose today Flowsheet Date 09/30/2024 Kearney Score Blood Edema Fundus Height Fundus Units Glucose Ketones Leukocytes Nitrite Labor Signs Protein Cervic Dilation Cervic Effacement Cervic Station none trace Negative neg Type Weight in lbs Pre/Post Dialysis Refused Weight 161.713800596198 BP Diastolic BP Location Tested BP Systolic BP Type 68 118 sitting Fetus Heart Rate Present A 140 Fetus Movement A Yes Comments constipation, diarrhea Flowsheet Date 10/15/2024 Kearney Score Blood Edema Fundus Height Fundus Units Glucose Ketones Leukocytes Nitrite Labor Signs Protein Cervic Dilation Cervic Effacement Cervic Station Type Weight in lbs Pre/Post Dialysis Refused BP Diastolic BP Location Tested BP Systolic BP Type Fetus Heart Rate Present Fetus Movement Comments Flowsheet Date 10/15/2024 Kearney Score Blood Edema Fundus Height Fundus Units Glucose Ketones Leukocytes Nitrite Labor Signs Protein Cervic Dilation Cervic Effacement Cervic Station 29 cm none trace neg Type Weight in lbs Pre/Post Dialysis Refused Weight 165.346022179001 BP Diastolic BP Location Tested BP Systolic BP Type 66 110 Fetus Heart Rate Present A 140 Present Fetus Movement A Yes Comments heartburn, back pain, pelvic pain, Flowsheet Date 10/16/2024 Kear[place] Score Blood Edema Fundus Height Fundus Units Glucose Ketones Leukocytes Nitrite Labor Signs Protein Cervic Dilation Cervic Effacement Cervic Station Type Weight in lbs Pre/Post Dialysis Refused BP Diastolic BP Location Tested BP Systolic BP Type Fetus Heart Rate Present Fetus Movement Comments u/s on 10/15/24, WILLA 01/05/25, EGA 28.2, vertex, FHR 148 Flowsheet Date 10/28/2024 Kearney Score Blood Edema Fundus Height Fundus Units Glucose Ketones Leukocytes Nitrite Labor Signs Protein Cervic Dilation Cervic Effacement Cervic Station 31 cm none none Negative neg Type Weight in lbs Pre/Post Dialysis Refused Weight 166.136791019359 BP Diastolic BP Location Tested BP Systolic BP Type 78 122 sitting Fetus Heart Rate Present A 144 Present Fetus Movement A Yes Comments dental pain, left side of fa ce is swollen, sore throat, headache,sob, heartburn, low back pain, pelvic pain Flowsheet Date 11/11/2024 Kearney Score Blood Edema Fundus Height Fundus Units Glucose Ketones Leukocytes Nitrite Labor Signs Protein Cervic Dilation Cervic Effacement Cervic Station 32 cm none trace Negative neg Type Weight in lbs Pre/Post Dialysis Refused Weight 170.182761387248 BP Diastolic BP Location Tested BP Systolic BP Type 62 110 sitting Fetus Heart Rate Present A 130 Present Fetus Movement A Yes Comments low back pain, pelvic pain, constipation, diarrhea, headache, sob Flowsheet Date 11/25/2024 Kearney Score Blood Edema Fundus Height Fundus Units Glucose Ketones Leukocytes Nitrite Labor Signs Protein Cervic Dilation Cervic Effacement Cervic Station 33 cm none trace Negative neg Type Weight in lbs Pre/Post Dialysis Refused 174.90569542244 BP Diastolic BP Location Tested BP Systolic BP Type 64 110 sitting Fetus Heart Rate Present A 144 Present Fetus Movement A Yes Comments low back pain,heartburn Flowsheet Date 12/09/2024 Kearney Score Blood Edema Fundus Height Fundus Units Glucose Ketones Leukocytes Nitrite Labor Signs Protein Cervic Dilation Cervic Effacement Cervic Station 36 cm none trace trace 1cm 60% -2 Type Weight in lbs Pre/Post Dialysis Refused Weight 175.074937042897 BP Diastolic BP Location Tested BP Systolic BP Type 76 L arm 112 Fetus Heart Rate Present A 144 Present Fetus Movement A Yes Comments pelvic pain, vaginal pressur e, cramping, heartburnGroup B strep swab collected today Flowsheet Date 12/16/2024 Kear[place] Score Blood Edema Fundus Height Fundus Units Glucose Ketones Leukocytes Nitrite Labor Signs Protein Cervic Dilation Cervic Effacement Cervic Station 36 cm none trace Negative neg 3cm 60% -2 Type Weight in lbs Pre/Post Dialysis Refused Weight 174.909748820477 BP Diastolic BP Location Tested BP Systolic BP Type 70 118 sitting Fetus Heart Rate Present A 136 Present Fetus Movement A Yes Comments vaginal pressure, pelvic/cam k pain, increased discharge, headache,dizziness, heartburn, diarrhea Menstrual History Last Menstrual Date Menses Monthly On Bcp Conception Prior Menses Frequency Hcg Plus Date Menarche Onset Age 0703/23/2024 true Genetic Screening And Infection History Question Response Note Patient's Age Will Be 35 Years Or Older At Estim ated Date of Delivery false Thalassemia (Divehi, Belgian, Mediterranean, Or Background): MCV < 80 false Neural Tube Defect (Meningomyelocele, Spina Bifi da, Or Anencephaly) false Congenital Heart Defect false Down Syndrome false John-Sachs (eg, Amish, Cajun, Costa Rican-Allegan) f alse Casa Disease false Sickle Cell Disease Or Trait () false Hemophilia Or Other Blood Disorders false Muscular Dystrophy false Cystic Fibrosis false Praveen's Chorea false Intellectual Disability/Autism false If Yes, Was Person Tested For Fragile X? false Other Inherited Genetic Or Chromosomal Disorder false Maternal Metabolic Disorder (eg, Type 1 Diabetes , PKU) false Patient Or Baby's Father Had A Child With Defects Not Listed Above false Recurrent Loss, Or A Stillbirth false Medications (including Suppl ements, Vitamins, Herbs, OTC Drugs), Illicit/Recreational Drugs, Alcohol false If Yes, Agent(s) And Strength/Dosage false Any Other Genetic History false Live With Someone With TB Or Exposed To TB false Patient Or Partner Has History Of Genital Herpes false Rash Or Viral Illness Since Last Menstrual Perio d false Other Infection History false History of HIV false History of Hepatitis false Prior GBS-infected child false Hemoglobinopathy Or Carrier false Other Structural Defect false Recent Travel History Outside of Country false Mental Retardation/Autism false Delivery Information Delivery Date Delivery Type Labor Anesthesia Weeks Gestation Incision Type Labor Labor Length Hrs Delivered By Post Complications Tubal Sterilization Discharge Date Comments Discharge Information Feeding Method Contraceptive Method Maternal HG B and HCT Levels Ob Episode Information Episode Created Date Number of Fetuses Patient Bloodtype Patient rh Status Prepregnancy Weight lbs Domestic Partner Domestic Partner Phone Father Name Delivery Aide Status 05/20/20 24 1 CLOSED Fetus Data First Name Last Name Admitted to NICU Weight (g) Sex Living Outcome Pediatric Complications Fetus ID Race Codes Race Delivery Type 2806.37 3704 F Full Term 5802 VAGINAL Willa Calculation Initial Willa Date Initial Exam Date Initial Exam Provider Initial Ultrasound Date Last Menstrual Period Date Ultra Sound Weeks Gestation 0 Eighteen To Twenty Week Willa Update Ultra Sound Date Fundal Height At Umbil Quickening Date Ultra Sound Latest Weeks Gestation Final Willa Confirmed By Final Willa Confirmed Date Final Willa Date Ultra Sound Latest Days Gestation 0 0 Menstrual History Last Menstrual Date Menses Monthly On Bcp Conception Prior Menses Frequency Hcg Plus Date Menarche Onset Age Delivery Information Delivery Date Delivery Type Labor Anesthesia Weeks Gestation Incision Type Labor Labor Length Hrs Delivered By Post Complications Tubal Sterilization Discharge Date Comments 0 Regional- idural 37 false gestatio n al diabetesA lucina Discharge Information Feeding Method Contraceptive Method Maternal HG B and HCT Levels
--- OUTSIDE RECORDS SUMMARY | 2024-12-19 06:15 | XMS_ITS | Continuity of Care Document ---
Author Organization TATIANA Hector [facility], [place], [facility] ([facility]) Address [address] [place] [address] Assessment No assessment recorded. Plan of Treatment Reminders Order Date Submit Date Provider Last Modified By Organization Details Last Modified Time Details Appointments RETURN OB 2024 08:10A Tamar Morrison MD Not available Not available Not available RETURN OB 2024 08:00A Tamar Morrison MD Not available Not available Not available Lab None recorded . Referral None recorded . Procedures None recorded . Surgeries None recorded . Imaging None recorded . Medication Orders None recorded . Patient TargetsNo targets recorded. Patient InstructionsNo instructions recorded. Reason for Referral None Reported. Results Created Date Observation Date Name Description Value Unit Range Abnormal Flag Note LastModifiedBy Organization Detail LastModifiedTime 07/01/20 24 imagi ng/di agnos tic resul t No observ ation record ed. [email or web address] Not Available 2023 16:19:26 08/07/20 24 08/05/2024 US, obste tric, 2nd trime ster No observ ation [facility] ed[email or web address] [address] [place], [address], 08/11/2024 18:21:04 10/21/19 25 10/15/2024 US, obste tric, 3rd trime ster No observ ation record ed. [email or web address] Not Available 10/26 11:37:16 Result Notes None recorded. Problems Name Problem SNOMED Code Status Onset Date Resolution Date Notes Provider Name and Address Organization Details Recorded Time Normal in multigrav lc 791719455809 106 Active 2023 SERG DELGADO jr [employer] [employer], LKaileyCSadia 5 10:04:16 Normal in multigrav lc 839531965405 106 Active 2023 SERG norris [employer], LKaileyCSadia 5 10:04:16 Abnormal chromosom al and genetic finding on screening of mother Active 2023 She does not want to see a perinatol ogist at this time. SERG norris [employer], [facility] 5 10:04:11 Abnormal chromosom al and genetic finding on screening of mother Active 2023 She does not want to see a perinatol ogist at this time. SERG DELGADO jr [employer], [facility] 5 10:04:11 Problem Notes None recorded. Procedures Surgical History Date Name Laterality Status Provider Name and Address Organization Details Recorded Time 024 Date of Last Pap Smear completed [facility], LSadiaLSadiaCSadia 11/25/2024 08:54:12 024 sampling of cervix for Papanicolaou smear completed [facility], LSadiaLSadiaCSadia 11/25/2024 08:53:39 cholecystectomy completed [facility], L.LSadiaCSadia 10/28/2024 10:23:50 Imaging Results None recorded. Procedure Notes None recorded. Medical Equipment None Reported. Allergies Allergen ID Allergen Name Allergen Category Reaction Reaction Severity Criticality Documentation Date Start Date Code Code System Note Provider Name and Address Organization Details Recorded Time 5309 Substance with sulfonami de structure and antibacte rial mechanism of action (substanc e) medicatio n Not available Not available Not available 03/07/2023 [id number] 8003 SNOMED TAMATHA ALEXANDR [facility] [employer], MaylinLRoger 3 18:21:06 Medications Name Sig Start Date Stop Date Status Note LastModified by Organization Details LastModified Time cyclobenz aprine 10 mg tablet three times daily, as needed 09/04 completed Recorded 11/11/19 3:58PM by Ramandeep Kothari, Office Visit; Refill [...] Available Vitals Date Recorded Body height Body weight Oxygen saturation Oxygen saturation in Arterial blood by Pulse oximetry Heart rate Respiratory rate Body temperature Systolic blood pressure Diastolic blood pressure Provider Name and Address Organization Details Last Updated DateTime 5 160.02 cm 43077.0 7238 g 99 % 99 % 91 /min 18 /min 98 [degF] 110 mm[Hg] 64 mm[Hg] WILMAR ENNIS [facility] 09:04:24 Social History Question Answer Notes LastModified by Organizat ion Details LastModified Time Tobacco Smoking Status Former Smoker SUSEI MEHTA jr, [employer] 09/04/2023 16:04:04 What Is Your Level Of [...] Time Father No current problems or disability [email or web address] Not available 05/2024 16:03:58 Mother No current problems or disability [email or web address] Not available 05/2024 16:03:58 Medical History Condition Response Coronary Artery Disease N Other N Gout N Kidney Stones N Blood Diseases N Hyperthyroidism N Breast Cancer N Blood Transfusion N Depression N Hypothyroidism N Lung Disease N COPD N Developmental or Behavioral Disorders N Defects or Inherited Disease N Breast Problem N Difficulty Swallowing N Anesthesia Complications N Anxiety Disorder N Meniere's disease N Muscle, Joint, or Bone Problems N Vision or Eye Problems N Arthritis N Infertility N Polyps N Cancer N Stroke N Varicosities N Endometriosis N Bladder or Kidney Problems [...] Recorded Time IPV 10/24/2000 completed [facility]USIE [facility]ris [facility] 09/04/2023 16:03:07 MMR 10/24/2000 completed SUSIE norris [facility] 09/04/2023 16:03:07 MMR 07/12/1998 completed [facility]USIE norris [facility] 09/04/2023 16:03:07 influenza, unspecified formulation 06/28/1999 completed SUSIE MEHTA null, [employer], AlejandroC. 09/04/2023 16:03:07 DTP 02/28/1996 completed SUSIE MEHTA null, [employer], AlejandroC. 09/04/2023 16:03:07 DTP 05/04/1996 completed SUSIE MEHTA null, [employer], AlejandroC. 09/04/2023 16:03:07 DTP 07/30/1996 completed SUSIE MEHTA null, [employer], AlejandroC. 09/04/2023 16:03:07 Hep B, unspecified formulation 11/12/1996 completed SUSIE MEHTA null, [employer], AlejandroC. 09/04/2023 16:03:07 Hep B, unspecified formulation 01/24/1996 completed SUSIE MEHTA null, [employer] [facility], MaylinL.C. 09/04/2023 16:03:07 Hep B, unspecified formulation 02/28/1996 completed SUSIE MEHTA null, [employer], AlejandroC. 09/04/2023 16:03:07 OPV 02/28/1996 completed SUSIE MEHTA null, [employer] [facility], Emery.C. 09/04/2023 16:03:07 OPV 05/04/1996 completed SUSIE MEHTA null, [employer] [facility], MaylinL.C. 09/04/2023 16:03:07 OPV 07/30/1996 completed SUSIE MEHTA null, [employer], MaylinL.C. 09/04/2023 16:03:07 Hib (PRP-T) 02/28/1996 completed SUSIE MEHTA null, [employer] [facility], MaylinL[facility]C. 09/04/2023 16:03:07 Hib (PRP-T) 05/04/1996 completed SUSIE MEHTA null, [employer] [facility], AlejandroC. 09/04/2023 16:03:07 Hib (PRP-T) 07/12/1998 completed SUSIE MEHTA null, [employer], [facility] 09/04/2023 16:03:07 Hib (PRP-T) 07/30/1996 completed SUSIE PHAM MEHTA null, [employer], [facility] 09/04/2023 16:03:07 DTaP 10/24/2000 completed SUSIE MEHTA null, [employer], [facility] 09/04/2023 16:03:07 DTaP 07/12/1998 completed SUSIE PHAM MEHTA null, [employer], [facility] 09/04/2023 16:03:07 Past Encounters Encounter ID Performer Location Encounter Start Date Encounter Closed Date Diagnosis/Indication Diagnosis SNOMED-CT Code Diagnosis ICD10 Code Diagnosis Note [id number] Juan Morrison MD [facility] ([facility]) [address] [place], [place] [phone] 10/28/2024 09:51:51 10/28/2024 11:03:04 Normal in multigravida 2696404618 75660 Z34.83 Gestation period, 30 weeks 22437552 Z3A.30 Toothache 63129370 K08.8 9 [id number] Juan Morrison MD [facility]) [address] [place] [phone] 11/11/2024 09:49:31 11/11/2024 14:51:15 Normal in multigravida 0385787921 60560 Z34.83 Gestation period, 32 weeks 3969160 Z3A.32 [id number] Juan Morrison MD [facility] ([facility]) [address] [place] [phone] 11/25/2024 08:49:31 11/25/2024 09:26:52 Normal in multigravida 3079208444 02186 Z34.83 Gestation period, 34 weeks 51735159 Z3A.34 Health Concerns Section Related Observation LastModified by Organization Detai ls LastModified Time None Recorded Concern Status LastModified by Organization Details LastModified Time None Recorded Payers Encounter Date Sequence Insurance Name Policy Number Policy Cardenas Covered Member ID Cardenas Member ID Guarantor Name 11/25/2024 1 [employer] [place]AC[place] - HMO) [id number] Augie Aviles [id number] 28 Augie Aviles Notes Date Note Type Note Provider Name and Address Organization Details Recorded Time 11/25/2024 text/html jr ob routineRep orted bypatient.Associated Symptoms:no [...] alcohol or drug use. Juan Morrison MD [address] [place] [address], [phone] 11/25/2024 09:19:44 OBGyn Episode Ob Episode Information Episode Created Date Number of Fetuses Patient Bloodtype Patient rh Status Prepregnancy Weight lbs Domestic Partner Domestic Partner Phone Father Name Fruit And Vegetable Parer Status 05/20/20 24 1 A Positive Damir [...] Code Not e Normal in multigravida 06/23/2024 [id number] Abnormal chromosomal and genetic finding on screening of mother 07/20/2024 [id number] She does not wa nt to see [...] Weight in lbs Pre/Post Dialysis Refused Weight 144.862767928210 BP Diastolic BP Location Tested BP Systolic BP Type 70 124 sitting Fetus Heart Rate Present Fetus Movement Comments OBI Flowsheet Date 06/24/2024 Kearney Score Blood Edema Fundus Height Fundus Units Glucose Ketones Leukocytes Nitrite Labor Signs Protein Cervic Dilation Cervic Effacement Cervic Station Type Weight in lbs Pre/Post Dialysis Refused 146.729013902020 BP Diastolic BP Location Tested BP Systolic [...] Type Weight in lbs Pre/Post Dialysis Refused 149.032748630242 BP Diastolic BP Location Tested BP Systolic [...] Type Weight in lbs Pre/Post Dialysis Refused 150.023083573949 BP Diastolic BP Location Tested BP Systolic [...] Type Weight in lbs Pre/Post Dialysis Refused 154.957513996856 BP Diastolic BP Location Tested BP Systolic [...] Weight in lbs Pre/Post Dialysis Refused Weight 158.456802676629 BP Diastolic BP Location Tested BP Systolic [...] Weight in lbs Pre/Post Dialysis Refused Weight 161.494751523307 BP Diastolic BP Location Tested BP Systolic [...] Weight in lbs Pre/Post Dialysis Refused Weight 165.184825671827 BP Diastolic BP Location Tested BP Systolic [...] Weight in lbs Pre/Post Dialysis Refused Weight 166.215946334565 BP Diastolic BP Location Tested BP Systolic [...] Weight in lbs Pre/Post Dialysis Refused Weight 170.011564917297 BP Diastolic BP Location Tested BP Systolic [...] Type Weight in lbs Pre/Post Dialysis Refused 174.83143153303 BP Diastolic BP Location Tested BP Systolic [...] Weight in lbs Pre/Post Dialysis Refused Weight 175.613834206615 BP Diastolic BP Location Tested BP Systolic [...] Weight in lbs Pre/Post Dialysis Refused Weight 174.411979009708 BP Diastolic BP Location Tested BP Systolic [...] Estim ated Date of Delivery false Thalassemia (British, Montserratian, Mediterranean, Or Background): MCV < 80 false Neural Tube Defect (Meningomyelocele, Spina Bifi da, Or Anencephaly) false Congenital Heart Defect false Down Syndrome false John-Sachs (eg, Yazdanism, Cajun, [place] Citizen-Swazi) f alse Casa Disease false Sickle Cell Disease Or Trait () false Hemophilia Or Other Blood Disorders false Muscular Dystrophy false Cystic Fibrosis false Hauula's Chorea false Intellectual Disability/Autism false If Yes, [...]
--- OUTSIDE RECORDS SUMMARY | 2024-12-19 06:15 | XMS_ITS | Continuity of Care Document ---
Author Organization TATIANA Hector Julian [facility] [place], [place], [facility] ([facility]) Address [address] [place] [address] Assessment No assessment recorded. Plan of Treatment Reminders Order Date Submit Date Provider Last Modified By Organization Details Last Modified Time Details Appointments RETURN OB 2024 08:10A Tamar Morrison MD Not available Not available Not available RETURN OB 2024 08:00A Tamar Morrison MD Not available Not available Not available Lab streptoco ccus group B, culture, unspecifi ed specimen 2024 025 [facility], [address] [place] [address], [facility] [address] [place], [address], 12/12/2024 09:23:46 Referral None recorded. Procedures None recorded. Surgeries None recorded. Imaging None recorded. Medication Orders None recorded. Patient TargetsNo targets recorded. Patient InstructionsNo instructions recorded. Reason for Referral None Reported. Results Created Date Observation Date Name Description Value Unit Range Abnormal Flag Note LastModifiedBy Organization Detail LastModifiedTime 07/01/20 24 imagi ng/di agnos tic resul t No observ ation record ed. [email or web address] Not Available 2023 16:19:26 08/07/20 24 08/05/2024 US, obste tric, 2nd trime ster No observ ation record ed. [email or web address] [place], [address], 08/11/2024 18:21:04 10/21/19 25 10/15/2024 US, obste tric, 3rd trime ster No observ ation record ed. [email or web address] Not Available 10/26 11:37:16 Result Notes None recorded. Problems Name Problem SNOMED Code Status Onset Date Resolution Date Notes Provider Name and Address Organization Details Recorded Time Normal in [facility] 256313067249 106 Active 2023 SERG norris [facility] [place], [place] 5 10:04:16 [facility] 71994[facility] 106 Active 2023 SERG norris [facility] [place], [place]andro[facility]ad[facility] 5 10:04:16 Abnormal chromosom al and genetic finding on screening of mother Active 2023 She does not want to see a perinatol ogist at this time. SERG norris [facility] [place], [place] 5 10:04:11 Abnormal chromosom al and genetic finding on screening of mother Active 2023 She does not want to see a perinatol ogist at this time. SERG norris [facility] [place], LSadiaLSadiaCSadia 5 10:04:11 Problem Notes None recorded. Procedures Surgical History Date Name Laterality Status Provider Name and Address Organization Details Recorded Time 024 Date of Last Pap Smear completed [facility], [facility] 11/25/2024 08:54:12 024 sampling of cervix for Papanicolaou smear completed [facility], LSadiaLSadiaCSadia 11/25/2024 08:53:[address] [facility], L.LSadiaCSadia 10/28/2024 10:23:50 Imaging Results None recorded. [...] Not available Not available Not available 03/07/2023 [id number] SNROSEMARIE norris [facility] [place], LSadiaSadia 18:21:06 Medications Name Sig Start Date Stop [...] Organization Details Last Updated DateTime 160.02 cm 31.1 kg/m2 51974.4 6 g 100 /min 16 /min 98 [degF] 112 mm[Hg] 76 mm[Hg] SERG DELGADO [facility] [place] 09:10:32 Social History Question Answer Notes LastModified by [employer] Feed ion Details LastModified Time Tobacco Smoking Status Former Smoker SUSIE LALH TYSON [facility] [place] 09/04/2023 16:04:04 What Is Your Level [...] Functional Status Question Answer Note LastModified by [employer] Details LastModified Time Do you have difficulty [...] Time Father No current problems or disability Not available 05/2024 16:03:58 Mother No current problems or disability Not available 05/2024 16:03:58 Medical History Condition [...] Details Recorded Time IPV 10/24/2000 completed SUSIE MEHTA [facility], [facility] 09/04/2023 16:03:07 MMR 10/24/2000 completed SUSIE MEHTA null, [facility], [facility] 09/04/2023 16:03:07 MMR 07/12/1998 completed SUSIE MEHTA null, [facility], [facility]androC. 09/04/2023 16:03:07 influenza, unspecified formulation 06/28/1999 completed SUSIE MEHTA null, [facility] [place], [facility]androC. 09/04/2023 16:03:07 DTP 02/28/1996 completed SUSIE MEHTA null, [facility], [facility]androC. 09/04/2023 16:03:07 DTP 05/04/1996 completed SUSIE MEHTA null, [facility], [facility]andro[facility]. 09/04/2023 16:03:07 DTP 07/30/1996 completed SUSIE MEHTA null, [facility], [facility]andro[facility]. 09/04/2023 16:03:07 Hep B, unspecified formulation 11/12/1996 completed SUSIE MEHTA null, [facility], [facility] 09/04/2023 16:03:07 Hep B, unspecified formulation 01/24/1996 completed SUSIE MEHTA null, [facility], [facility] 09/04/2023 16:03:07 Hep B, unspecified formulation 02/28/1996 completed SUSIE MEHTA null, [facility] [place], [facility]. 09/04/2023 16:03:07 OPV 02/28/1996 completed SUSIE MEHTA null, [facility], [facility]. 09/04/2023 16:03:07 OPV 05/04/1996 completed SUSIE MEHTA null, [facility], [facility] 09/04/2023 16:03:07 OPV 07/30/1996 completed SUSIE MEHTA null, [facility] [place], [facility]. 09/04/2023 16:03:07 Hib (PRP-T) 02/28/1996 completed SUSIE MEHTA null, [facility] 09/04/2023 16:03:07 Hib (PRP-T) 05/04/1996 completed SUSIE VERO MEHTA null, [facility] 09/04/2023 16:03:07 Hib (PRP-T) 07/12/1998 completed SUSIE VERO MEHTA null, [facility] 09/04/2023 16:03:07 Hib (PRP-T) 07/30/1996 completed SUSIE MEHTA null, [facility] [place] 09/04/2023 16:03:07 DTaP 10/24/2000 completed SUSIE MEHTA null, [facility] 09/04/2023 16:03:07 DTaP 07/12/1998 completed SUSIE VERO MEHTA null, [facility] 09/04/2023 16:03:07 Past Encounters Encounter ID Performer Location Encounter Start Date Encounter Closed Date Diagnosis/Indication Diagnosis SNOMED-CT Code Diagnosis ICD10 Code Diagnosis Note [id number] Juan Morrison MD [facility] ([facility]) [address] [place] [phone] 11/11/2024 09:49:31 11/11/2024 14:51:15 Normal in [facility] 1740583966 27170 Z34.83 Gestation period, 32 weeks 2640576 Z3A.32 [id number] Juan Morrison MD [facility] ([facility]) [address] [place] [phone] 11/25/2024 08:49:31 11/25/2024 09:26:52 Normal in [facility] 4149908577 28979 Z34.83 Gestation period, 34 weeks 04831035 Z3A.34 [id number] Juan Morrison MD [facility] ([facility]) [address] [place] [phone] 5 12/09/2024 08:51:32 12/09/2024 09:50:49 Normal in [facility] 9707458493 72703 Z34.83 Gestation period, 36 weeks 07190321 Z3A.36 Health Concerns Section Related Observation LastModified by Organization Detai ls LastModified Time None Recorded Concern Status LastModified by Organization Details LastModified Time None Recorded Payers Encounter Date Sequence Insurance Name Policy Number Policy Cardenas Covered Member ID Cardenas Member ID Guarantor Name 12/09/2024 1 [employer] [place] (MED[place]PLACEMENT - HMO) [id number] Augie Aviles [id number] 28 Augie Stefan Notes Date Note Type Note Provider Name and Address Organization Details Recorded Time 12/09/2024 text/html jr ob routineRep orted bypatient.Associated [...] alcohol or drug use. Juan Morrison MD [address] [place] [address], [phone] 12/09/2024 09:36:44 OBGyn Episode Ob Episode Information Episode Created Date Number of Fetuses Patient Bloodtype Patient rh Status Prepregnancy Weight lbs Domestic Partner Domestic Partner Phone Father Name Coating Technician Status 05/20/20 24 1 A Positive Damir [...] Code Not e Normal in [facility] 06/23/2024 [id number] Abnormal chromosomal and genetic finding on screening of mother 07/20/[id number] She does not wa nt to see [...] Ultra Sound Latest Days Gestation 0 0 Pre-tonio Flowsheet Flowsheet Date 05/20/2024 [place] Score Blood Edema Fundus Height Fundus Units Glucose Ketones Leukocytes Nitrite Labor Signs Protein Cervic Dilation Cervic Effacement Cervic Station Type Weight in lbs Pre/Post Dialysis Refused Weight 144.835337137172 BP Diastolic BP Location Tested BP Systolic BP Type 70 124 sitting Fetus Heart Rate Present Fetus Movement Comments OBI Flowsheet Date 06/24/2024 [place]ney Score Blood Edema Fundus Height Fundus Units Glucose Ketones Leukocytes Nitrite Labor Signs Protein Cervic Dilation Cervic Effacement Cervic Station Type Weight in lbs Pre/Post Dialysis Refused 146.769527474581 BP Diastolic BP Location Tested BP Systolic [...] Type Weight in lbs Pre/Post Dialysis Refused 149.195701865378 BP Diastolic BP Location Tested BP Systolic [...] Type Weight in lbs Pre/Post Dialysis Refused 150.945427118601 BP Diastolic BP Location Tested BP Systolic [...] Type Weight in lbs Pre/Post Dialysis Refused 154.007210768642 BP Diastolic BP Location Tested BP Systolic [...] Weight in lbs Pre/Post Dialysis Refused Weight 158.807003326476 BP Diastolic BP Location Tested BP Systolic [...] Weight in lbs Pre/Post Dialysis Refused Weight 161.533847993127 BP Diastolic BP Location Tested BP Systolic [...] Weight in lbs Pre/Post Dialysis Refused Weight 165.203022450284 BP Diastolic BP Location Tested BP Systolic [...] Weight in lbs Pre/Post Dialysis Refused Weight 166.426013752096 BP Diastolic BP Location Tested BP Systolic [...] Weight in lbs Pre/Post Dialysis Refused Weight 170.496544690245 BP Diastolic BP Location Tested BP Systolic [...] Type Weight in lbs Pre/Post Dialysis Refused 174.07439285170 BP Diastolic BP Location Tested BP Systolic [...] Weight in lbs Pre/Post Dialysis Refused Weight 175.585815796124 BP Diastolic BP Location Tested BP Systolic [...] Weight in lbs Pre/Post Dialysis Refused Weight 174.553339125675 BP Diastolic BP Location Tested BP Systolic [...] Estim ated Date of Delivery false Thalassemia (Thai, Vietnamese, Mediterranean, Or Background): MCV < 80 false Neural Tube Defect (Meningomyelocele, Spina Bifi da, Or Anencephaly) false Congenital Heart Defect false Down Syndrome false John-Sachs (eg, Scientology, Cajun, Mongolian-Algerian) f alse Casa Disease false Sickle Cell Disease Or Trait () false Hemophilia Or Other Blood Disorders false Muscular Dystrophy false Cystic Fibrosis false [place]'s Chorea false Intellectual Disability/Autism false If Yes, [...]
--- NOTE | 2024-12-19 08:00 | ANE.PACU2 ---
Inpatient post-anesthesia follow up: Airway intact: Yes Vital signs: Temperature 98 F Pulse Rate 90 Respiratory Rate 16 Blood Pressure 112/73 Pulse Oximetry 97 Oxygen Delivery Me thod Room Air Oxygen Flow Rate Fraction of Inspir ed Oxygen Hydration adequate: Yes Nausea and vomiting: No Pain level: 1 Mental status: Baseline Epidural Start/End: Epidural Start Date: 12/18/24 Epidural Start Time: 11:40 Epidural End Date: 12/18/24 Epidural End Time: 15:37
[2024-12-19] MEDS: docusate sodium 100 mg Capsule PO (08:22)
[2024-12-19] MEDS: PRENATAL VIT NO.130/IRON/FOLIC 1 EACH TABLET PO (08:22)
[2024-12-19] MEDS: ibuprofen 800 mg tablet PO ×2 (08:22→15:27)
[2024-12-19 09:20] VITALS: BP 115/72; PULSE 64; RESP 15; TEMP 36.6; O2SAT 98
--- NOTE | 2024-12-19 10:41 | P.DS_ITS ---
Discharge Providers POLICY SERVICE COORDINATOR Date of Admission: 12/18/24 10:50 Date of Discharge: 12/19/24 Attending Provider at Admission: Juan Morrison MD Attending Provider at Discharge: Juan Morrison MD Primary Care Provider: Juan Morrison MD Diagnoses at Discharge Discharge Diagnosis (1) 37 weeks gestation of : Status: Acute Reason for Visit Reason for Visit: Ctx Hospital Course Hospital Course The patient presented to the hospital in active labor. An epidural was placed. She progressed to complete. An amniotomy was performed. She had an unremarkable delivery of a healthy appearing female . Her course was also unremarkable. Her bleeding was within normal limits. Her pain was well-controlled. There were no concerns. Information Peripartum Data: Delivery Method: Vaginal Physical Exam Narrative: The patient is alert. She appears comfortable. Her heart has a regular rate and rhythm with no murmurs appreciated. Lungs are clear to auscultation bilaterally. Her fundus is firm and below the umbilicus. Urinary Catheter Management: Wu: Cath Placed During This Visit: yes Urinary Catheter Date of Insertion: 12/18/24 Urinary Catheter Time of Insertion: 12:15 History History History 2 Term 1 0 Miscarriages/Ectopic 0 Living Children 1 Discharge Data Studies Completed and Pending Laboratory Results WBC 15.35 10^3/uL (3.29-11.43) H 12/19/24 04:10 RBC 3.68 10^6/uL (3.85-5.65) L 12/19/24 04:10 Hgb 10.50 g/dL (11.27-16.99) L 12/19/24 04:10 Hct 32.1 % (36-47) L 12/19/24 04:10 MCV 87.2 fl (85-98) 12/19/24 04:10 MCH 28.5 pg (27-33) 12/19/24 04:10 MCHC 32.7 g/dL (30-55) 12/19/24 04:10 RDW 13.9 % (12.1-15.1) 12/19/24 04:10 Plt Count 199 10^3/cmm (157-399) 12/19/24 04:10 MPV 11.8 fL (7.4-10.4) H 12/19/24 04:10 Neut % (Auto) 80.7 % 12/18/24 10:45 Lymph % (Auto) 12.4 % 12/18/24 10:45 Tyrrell % (Auto) 6.1 % 12/18/24 10:45 Eos % (Auto) 0.2 % 12/18/24 10:45 Baso % (Auto) 0.1 % 12/18/24 10:45 Neut # (Auto) 10.51 10^3/uL (1.8-7.7) H 12/18/24 10:45 Lymph # (Auto) 1.6 10^3/uL (0.8-4.8) 12/18/24 10:45 Tyrrell # (Auto) 0.8 10^3/uL (0.2-0.9) 12/18/24 10:45 Eos # (Auto) 0.0 10^3/uL (0.0-0.8) 12/18/24 10:45 Baso # (Auto) 0.0 10^3/uL (0.0-0.1) 12/18/24 10:45 Nucleated RBC % (auto) 0 % 12/18/24 10:45 Nucleated RBCs # 0.0 /100WBC 12/18/24 10:45 Blood Type A Positive 12/18/24 10:45 Rho(D) Type Rh positive 12/18/24 10:45 Antibody Screen Negative 12/18/24 10:45 Vitals Last Vital Signs Temp 97.9 F 12/19/24 09:20 Pulse 64 12/19/24 09:20 Resp 15 12/19/24 09:20 BP 115/72 12/19/24 09:20 Pulse Ox 98 12/19/24 09:20 O2 Del Method Room Air 12/19/24 09:20 Results Labs OB ([facility]): Obstetrics US 07/04/24 Blood Type A Positive 12/18/24 Antibody Screen Negative 12/18/24 Hct 32.1 % (36-47) L 12/19/24 Hgb 10.50 g/dL (11.27-16.99) L 12/19/24 Rho(D) Type Rh positive 12/18/24 Plt Count 199 10^3/cmm (157-399) 12/19/24 Ser , Semi-Qnt 19254.00 mIU/mL 07/04/24 Discharge Plan Discharge Patient Disposition: Home Condition: Stable Prescriptions: New ibuprofen 800 mg Tablet 800 mg PO TID Qty: 45 0RF Vitamin 27 mg iron- 800 mcg Tablet 1 tab PO DAILY Qty: 90 2RF Discontinued Aleve 220 mg Tablet 220 mg PO BID PRN (Reason: Pain) Vitamin B-1 (mononitrate) 100 mg Tablet 100 mg PO DAILY 30 Days Qty: 30 1RF ondansetron 4 mg film 4 mg PO DAILY PRN (Reason: nausea and vomiting) Qty: 10 0RF Percocet 5-325 mg tablet 1 tab PO Q8H Qty: 10 0RF cefdinir 300 mg capsule 300 mg PO BID Qty: 14 0RF Referrals: Juan Morrison MD [Primary Care Provider] - 6 Weeks Discharge Diet: Usual diet Discharge Activity: Limit activity as instructed Patient Instructions: Opioid Safety Discharge Attestations POLICY SERVICE COORDINATOR Time Spent in Discharge Care*: less than 30 min Coding Level of Care Code Acute Code for Chg Fwd Diagnoses 37 weeks gestation of Z3A.37
[2024-12-19 16:46] VITALS: BP 112/73; PULSE 90; RESP 16; TEMP 36.6; O2SAT 97
== END 2024-12-19 16:57 | disposition home or self-care (01) | DRG 807 ==
LOC: OPOB 12-19 06:12 → OBGYN 12-19 06:13
PROVIDERS: Admitting Provider Family Medicine; PCP Family Medicine; Visit Provider Family Medicine
DX: O80 Encounter for full-term uncomplicated delivery (principal); Z37.0 Single live birth; Z3A.37 37 weeks gestation of pregnancy
CPT/HCPCS: 36415; 51702; 59025; 59409; 85025; 85027; 86850; 86900; 99211; J2590; J2795; J7120; J7121; J9999